=== PATIENT | male | born 1960 | race Two or more races ===

== ENCOUNTER 2019-12-07 16:10 | Inpatient (IN) | payer OTHER ==
[2019-12-07] VITALS (12 sets, daily range): BP systolic 78–119; BP diastolic 27–60
[~2019-12-07] VITALS: Ht 177.8 cm; Wt 81.6 kg
--- NOTE | 2019-12-07 16:26 | Emergency Room Report ---
History of Present Illness General Chief Complaint: Dyspnea/Respdistress Source: EMS Present Illness HPI Disclaimer: Please note that this report is being documented using DRAGON technology. This can lead to erroneous entry secondary to incorrect interpretation by the dictating instrument. 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 From his nursing facility he was found increasingly tachypneic with low blood pressure systolics in the 90s earlier today. Ma[place] warm but no objective temperature readings were taken. No further information provided. PMH: Reviewed PSH: Trach, G-tube Allergies: None listed in chart Social Hx: Unable to obtain from patient Allergies: Coded Allergies: No Known Allergies (Unverified , 12/07/19) COVID-19 Screening Contact w/high risk pt: No Experienced COVID-19 symptoms?: Yes COVID-19 Testing performed MANAGER TRAVEL: No Nursing Documentation-PMH Past Medical History: No History, Except For Hx COPD: Yes - ventilator dependant Hx Diabetes: Yes Hx Gastrointestinal Problems: Yes - dysphasia, GT Hx Seizures: Yes Review of Systems All Other Systems: limited - Unable to obtain from patient due to clinical cond ition Physical Exam Vital Signs Date Time Temp Pulse Resp B/P (MAP) Pulse Ox O2 Delivery O2 Flow Rate FiO2 12/07/19 16:13 120 30 96/62 (73) 93 Mechanical Ventilator General: GCS 3, tachycardic, tachypneic HEENT: NC/AT. EOMI. tracheostomy appears in place without evidence of trauma or bleeding. No subcutaneous air in the neck or face. Cardiovascular: Tachycardic Resp: Tachypnea increased work of breathing. Rhonchorous. No wheezing. Abdomen: Abdomen is soft, nondistended. Nontender Skin: Warm to the touch. Intact. MSK: No spontaneous movement. Bilateral picklines present. Neuro: GCS 3. Procedures Critical Care Time Critical Care Time Total critical care time: Approximately 45 minutes Due to a high probability of clinically significant, life threatening deterioration, the patient required the highest level of preparedness to intervene emergently and I personally spent this critical care time directly and personally managing the patient. This critical care time included obtaining a history, examining the patient, pulse oximetry, ordering and reviewing studies, ordering treatments, evaluating response to treatment and updating management plan as needed, frequent reassessment and discussion with other providers as well as arranging for ultimate disposition. This critical to care time was performed to assess and manage the high probability of life-threatening deterioration that could result in multiorgan failure. This critical care time is separate from the separately billable procedures and treating other patients. Medical Decision Making Diagnostic Impression: Primary Impression: Rapid atrial fibrillation Additional Impressions: Sepsis Pneumonia ER Course 59-year-old male history of intracranial bleed with persistent vegetative state who is now trach and vent dependent presents for evaluation of hypotension and tachypnea. Concern for sepsis secondary to a pulmonary source, occult bacteremia, cardiac event, COVID-19 among others. Patient arrived hypotensive and started 30 cc/kg bolus and levophed. EKG shows rapid atrial fibrillation with rate in the 20s. Because of his low blood pressure held off on beta blocking medications at this time. Started on broad-spectrum antibiotics. Chest x-ray concerning for left lower lobe pneumonia. Initial lactate elevated. Repeat after fluids. Patient will be admitted to the ICU. Dr. Buck is the admitting physician per patient's health plan Sepsis reevaluation: I, Dr. Abran Veloz, reevaluated the patient Capillary refill: Less than 2 seconds MAP: 64 Heart rate: 120 Respiratory rate: 27 Initial Lactate: 3.3 Repeat Lactate: 3.3 Pressors: Levophed drip No signs of fluid overload Laboratory Tests Test 12/07/19 16:15 12/07/19 16:30 12/07/19 16:52 12/07/19 17:15 White Blood Count 7.7 K/UL (4.8-10.8) Red Blood Count 2.94 M/UL (4.70-6.10) L Hemoglobin 7.9 G/DL (14.2-18.0) L Hematocrit 24.4 % (42.0-52.0) L Mean Corpuscular Volume 83 FL (80-99) Mean Corpuscular Hemoglobin 26.9 PG (27.0-31.0) L Mean Corpuscular Hemoglobin Concent 32.4 G/DL (32.0-36.0) Red Cell Distribution Width 16.9 % (11.6-14.8) H Platelet Count 272 K/UL (150-450) Mean Platelet Volume 7.5 FL (6.5-10.1) Neutrophils (%) (Auto) % (45.0-75.0) Lymphocytes (%) (Auto) % (20.0-45.0) Monocytes (%) (Auto) % (1.0-10.0) Eosinophils (%) (Auto) % (0.0-3.0) Basophils (%) (Auto) % (0.0-2.0) Differential Total Cells Counted 100 Neutrophils % (Manual) 79 % (45-75) H Lymphocytes % (Manual) 4 % (20-45) L Monocytes % (Manual) 3 % (1-10) Eosinophils % (Manual) 1 % (0-3) Basophils % (Manual) 0 % (0-2) Band Neutrophils 13 % (0-8) H Nucleated Red Blood Cells 1 /100 WBC Platelet Estimate Adequate Platelet Morphology Normal Anisocytosis 1+ Prothrombin Time 12.0 SEC (9.30-11.50) H Prothrombin Time INR 1.1 (0.9-1.1) Activated Partial Thromboplast Time 30 SEC (23-33) D-Dimer 21.51 mg/L FEU (0.00-0.49) H Sodium Level 136 MMOL/L (136-145) Potassium Level 2.7 MMOL/L (3.5-5.1) *L Chloride Level 96 MMOL/L (98-107) L Carbon Dioxide Level 29 MMOL/L (21-32) Anion Gap 10 mmol/L (5-15) Blood Urea Nitrogen 12 mg/dL (7-18) Creatinine 0.7 MG/DL (0.55-1.30) Estimated Glomerular Filtration Rate > 60 mL/min (>60) Glucose Level 99 MG/DL (74-106) Lactic Acid Level 3.30 mmol/L (0.4-2.0) H 3.30 mmol/L (0.66-2.22) H Calcium Level 8.1 MG/DL (8.5-10.1) L Phosphorus Level 3.0 MG/DL (2.5-4.9) Magnesium Level 1.2 MG/DL (1.8-2.4) L Ferritin 352 NG/ML (8-388) Total Bilirubin 0.7 MG/DL (0.2-1.0) Aspartate Amino Transferase (AST) 45 U/L (15-37) H Alanine Aminotransferase (ALT) 28 U/L (12-78) Alkaline Phosphatase 188 U/L (46-116) H Lactate Dehydrogenase 182 U/L (81-234) Total Creatine Kinase 56 U/L (26-308) Creatine Kinase MB 0.8 NG/ML (0.0-3.6) Creatine Kinase MB Relative Index 1.4 Troponin I 0.000 ng/mL (0.000-0.056) C-Reactive Protein, Quantitative 45.3 mg/dL (0.00-0.90) H Pro-B-Type Natriuretic Peptide 242 pg/mL (0-125) H Total Protein 5.9 G/DL (6.4-8.2) L Albumin 1.6 G/DL (3.4-5.0) L Globulin 4.3 g/dL Albumin/Globulin Ratio 0.4 (1.0-2.7) L Lipase 1131 U/L (73-393) H Urine Color Yellow Urine Appearance Cloudy Urine pH 6 (4.5-8.0) Urine Specific Barnum 1.005 (1.005-1.035) Urine Protein 3+ (NEGATIVE) H Urine Glucose (UA) Negative (NEGATIVE) Urine Ketones Negative (NEGATIVE) Urine Blood 4+ (NEGATIVE) H Urine Nitrite Positive (NEGATIVE) H Urine Bilirubin Negative (NEGATIVE) Urine Urobilinogen 1 MG/DL (0.0-1.0) H Urine Leukocyte Esterase 1+ (NEGATIVE) H Urine RBC 30-40 /HPF (0 - 0) H Urine WBC 10-15 /HPF (0 - 0) H Urine Squamous Epithelial Cells Occasional /LPF Urine Bacteria Many /HPF (NONE) H Arterial Blood pH 7.507 (7.350-7.450) Arterial Blood Partial Pressure CO2 35.2 mmHg (35.0-45.0) Arterial Blood Partial Pressure O2 126.8 mmHg (75.0-100.0) H Arterial Blood HCO3 27.3 mmol/L (22.0-26.0) H Arterial Blood Oxygen Saturation 98.2 % (95-100) Arterial Blood Base Excess 4.2 (-2-2) H Andrea Test Positive Microbiology Date/Time Source Procedure Growth Status 12/07/19 16:15 Nasopharynx SARS-CoV-2 RdRp Gene Assay - Final Complete EKG Diagnostic Results EKG Time: 16:12 Rate: tachycardiac Other Impression Atrial fibrillation with rapid ventricular rate in the 120s Rhythm Strip Diag. Results Rhythm Strip Time: 16:12 EP Interpretation: yes Rate: 120s Rhythm: other - Rapid atrial fibrillation Chest X-Ray Diagnostic Results Chest X-Ray Diagnostic Results : Chest X-Ray Ordered: Yes Indication: Shortness of Breath EP Interpretation: Yes Interpretation: other - Tracheostomy in place, left lower lobe consolidation Impression: Other - Left lower lobe pneumonia Electronically Signed by: Electronically signed by Dr. Abran Veloz Last Vital Signs Date Time Temp Pulse Resp B/P (MAP) Pulse Ox O2 Delivery O2 Flow Rate FiO2 12/07/19 16:13 120 30 96/62 (73) 93 Mechanical Ventilator Disposition: ADMITTED INPATIENT Condition: Serious Abran Veloz MD Dec 07, 2019 16:26
[2019-12-07] MEDS ORDERED: Piperacillin/Tazobactam 3.375 GM in NS 110 ML IV ONE (16:30)
[2019-12-07] MEDS ORDERED: FAMOTIDINE20 MG GT (16:31)
[2019-12-07] MEDS ORDERED: ZOFRAN4 M3 GT (16:31)
[2019-12-07] MEDS ORDERED: FUROSEMIDE20 M1 GT (16:31)
[2019-12-07] MEDS ORDERED: ZINC SULFATE220 M1 GT (16:31)
[2019-12-07] MEDS ORDERED: DULCOLAX10 MG RC (16:31)
[2019-12-07] MEDS ORDERED: CARVEDILOL25 MG ORAL (16:31)
[2019-12-07] MEDS ORDERED: KEPPRA500 MG ORAL (16:31)
[2019-12-07] MEDS ORDERED: ASCORBIC ACID500 MG GT (16:31)
[2019-12-07] MEDS ORDERED: AMLODIPINE BESYL5 MG GT (16:31)
[2019-12-07] MEDS ORDERED: ARTIFICIAL TEAR15 ML BOTH EYES (16:31)
[2019-12-07] MEDS ORDERED: ACETAMINOP160 MG/55 GT (16:31)
[2019-12-07] MEDS ORDERED: HYDRALAZINE HCL10 MG GT (16:31)
[2019-12-07] MEDS ORDERED: SODIUM CHLORIDE1 GM GT (16:31)
[2019-12-07] MEDS ORDERED: MILK OF MA400 MG/51 GT (16:31)
[2019-12-07] MEDS ORDERED: ATIVAN1 MG GT (16:31)
[2019-12-07 16:44] LABS: HEMATOCRIT 24.4 % (42.0-52.0); HEMOGLOBIN 7.9 G/DL (14.2-18.0); MEAN CORPUSCULAR VOLUME 83 FL (80-99); PLATELET COUNT 272 K/UL (150-450); RED BLOOD COUNT 2.94 M/UL (4.70-6.10); RED CELL DISTRIBUTION WIDTH 16.9 % (11.6-14.8); WHITE BLOOD COUNT 7.7 K/UL (4.8-10.8)
[2019-12-07 17:08] LABS: INR 1.1 (0.9-1.1)
[2019-12-07 17:16] LABS: ALANINE AMINOTRANSFERASE 28 U/L (12-78); ALBUMIN 1.6 G/DL (3.4-5.0); ALBUMIN/GLOBULIN RATIO 0.4 (1.0-2.7); ALKALINE PHOSPHATASE 188 U/L (46-116); ANION GAP 10 mmol/L (5-15); ASPARTATE AMINO TRANSFERASE 45 U/L (15-37); BILIRUBIN,TOTAL 0.7 MG/DL (0.2-1.0); BLOOD UREA NITROGEN 12 mg/dL (7-18); CALCIUM 8.1 MG/DL (8.5-10.1); CARBON DIOXIDE 29 MMOL/L (21-32); CHLORIDE 96 MMOL/L (98-107); CKMB 0.8 NG/ML (0.0-3.6); CREATINE KINASE 56 U/L (26-308); CREATININE 0.7 MG/DL (0.55-1.30); FERRITIN 352 NG/ML (8-388); LACTATE DEHYDROGENASE 182 U/L (81-234); POTASSIUM 2.7 MMOL/L (3.5-5.1); SODIUM 136 MMOL/L (136-145)
[2019-12-07 17:50] LABS: BILIRUBIN, URINE NEGATIVE (NEGATIVE); GLUCOSE, URINE (UA) NEGATIVE (NEGATIVE); KETONES,URINE NEGATIVE (NEGATIVE); LEUKOCYTE ESTERASE ,URINE 1+ (NEGATIVE); NITRITE,URINE POSITIVE (NEGATIVE); PH,URINE 6 (4.5-8.0); PROTEIN,URINE 3+ (NEGATIVE); UROBILINOGEN,URINE 1 MG/DL (0.0-1.0)
[2019-12-07 18:00] LABS: COLOR,URINE YELLOW
[2019-12-07 18:01] LABS: APPEARANCE,URINE CLOUDY
[2019-12-07] MEDS ORDERED: Vancomycin 1.5gm/NS Premix IVPB ONE (21:00)
[2019-12-07] MEDS: Carvedilol 25mg Tab GT SCH (21:00)
[2019-12-07] MEDS: Norepinephrine Bitartrate 8 MG in D5W 500ml 492 ML IV SCH (21:37)
[2019-12-07] MEDS: Piperacillin/Tazobactam 3.375 GM in NS 110 ML IVPB SCH (21:38)
[2019-12-07] MEDS: levETIRAcetam 500mg/5ml Liquid GT SCH (21:38)
[2019-12-07] MEDS: Heparin 5000 units/ml inj SUBQ SCH (21:39)
[2019-12-07] MEDS: Zinc Sulfate 220mg GT SCH (21:39)
[2019-12-07] MEDS: Acetaminophen 650mg/20.3ml GT PRN (21:39)
[2019-12-08] VITALS (71 sets, daily range): BP systolic 84–151; BP diastolic 19–97
[2019-12-08] MEDS: Norepinephrine Bitartrate 8 MG in D5W 500ml 492 ML IV SCH ×4 (02:14→19:29)
[2019-12-08] MEDS ORDERED: Vancomycin 1gm/D5W 275ml IVPB SCH ×2 (04:00)
[2019-12-08] MEDS: Acetaminophen 650mg/20.3ml GT PRN ×2 (04:31→17:13)
[2019-12-08] MEDS: Piperacillin/Tazobactam 3.375 GM in NS 110 ML IVPB SCH (06:43)
[2019-12-08] MEDS ORDERED: Heparin1,000 units/500ml Premix(Conc:2 units/ml) IV PRN (08:00)
[2019-12-08] MEDS ORDERED: Lidocaine 1% Plain 30 ml INJ PRN (08:03)
[2019-12-08] MEDS: Heparin 5000 units/ml inj SUBQ SCH ×2 (09:00→21:00)
--- NOTE | 2019-12-08 09:14 | History and Physical Report ---
DATE OF ADMISSION: 12/07/2019 CHIEF COMPLAINT: Septic shock. HISTORY OF PRESENT ILLNESS: The patient is an unfortunate 59-year-old male. He apparently suffered an intracranial bleed several weeks ago. He underwent a craniotomy and EVD, and later a REGISTERED PRIVATE DUTY NURSE shunt. His hospital course was complicated by seizures and chronic respiratory failure. He underwent a placement of a trach and a surgical G-tube. He was transferred to a retirement facility where he developed fevers and shortness of breath, was transferred to the emergency room. On evaluation there, he was tachypneic, febrile, and hypotensive. He received IV fluids, but eventually required placement on pressors for blood pressure support. The patient has been being pancultured and started on broad spectrum IV antibiotics, now admitted for further evaluation and care. PAST MEDICAL HISTORY: As above. PAST SURGICAL HISTORY: As above. CURRENT MEDICATIONS: Reconciled and reviewed. ALLERGIES: None. FAMILY HISTORY: None. SOCIAL HISTORY: There is no known history of tobacco or drugs. The patient has a history of alcohol use. REVIEW OF SYSTEMS: Unobtainable as the patient is nonverbal. PHYSICAL EXAMINATION: VITAL SIGNS: Temperature 100.3, pulse 107, respirations 22, blood pressure 114/24. GENERAL: The patient is a thin, chronically ill-appearing male, in no apparent distress. The pupils are equal, round, and reactive to light. Oropharynx is clear. NECK: Supple. Trach site was clean and midline. HEART: Regular rate and rhythm. LUNGS: Clear. ABDOMEN: Soft, nontender, nondistended. There is surgical scar on the right side of the abdomen with leonardo. EXTREMITIES: Without clubbing or cyanosis. There is 1+ edema noted. LABORATORY DATA: UA showed 10 to 15 wbc's. White count was 8, hemoglobin 8, platelet count 272,000. Sodium 136, potassium 2.7, chloride 96, bicarb of 29, BUN of 12, creatinine 0.7. C-reactive protein was 45. Lipase was 1100. Chest x-ray showed a possible left lower lobe infiltrate. ASSESSMENT: This is an unfortunate 59-year-old male with a history of intracranial bleed, status post craniotomy, REGISTERED PRIVATE DUTY NURSE shunt. He has a history of seizures and chronic respiratory failure. PLAN: 1. We will discontinue the patient's old PICC line. 2. Broad spectrum IV antibiotics. 3. Continue pressors. 4. Aggressive fluid resuscitation. 5. Continue vent support. 6. ID and Pulmonary consultations will be obtained. 7. Plan of care has been discussed with the patient's sisters. They currently want him a Full Code. They are aware that his status is currently critical and guarded. Efren Buck M.D. DR: PAPA JOB#: [id number] CC:
[2019-12-08] MEDS: Ascorbic Acid 500mg tab GT SCH ×2 (09:42→17:13)
[2019-12-08] MEDS: Zinc Sulfate 220mg GT SCH (09:43)
[2019-12-08] MEDS: Carvedilol 25mg Tab GT SCH ×2 (09:43→21:00)
[2019-12-08] MEDS: levETIRAcetam 500mg/5ml Liquid GT SCH ×2 (09:43→21:03)
[2019-12-08 10:12] LABS: HEMATOCRIT 21.5 % (42.0-52.0); HEMOGLOBIN 7.3 G/DL (14.2-18.0); MEAN CORPUSCULAR VOLUME 80 FL (80-99); PLATELET COUNT 246 K/UL (150-450); RED CELL DISTRIBUTION WIDTH 16.2 % (11.6-14.8); WHITE BLOOD COUNT 17.8 K/UL (4.8-10.8)
[2019-12-08 10:30] LABS: ALANINE AMINOTRANSFERASE 26 U/L (12-78); ALBUMIN 1.5 G/DL (3.4-5.0); ALBUMIN/GLOBULIN RATIO 0.3 (1.0-2.7); ALKALINE PHOSPHATASE 144 U/L (46-116); ANION GAP 8 mmol/L (5-15); ASPARTATE AMINO TRANSFERASE 45 U/L (15-37); BILIRUBIN,TOTAL 0.8 MG/DL (0.2-1.0); BLOOD UREA NITROGEN 12 mg/dL (7-18); CALCIUM 7.6 MG/DL (8.5-10.1); CARBON DIOXIDE 26 MMOL/L (21-32); CHLORIDE 97 MMOL/L (98-107); CREATININE 0.6 MG/DL (0.55-1.30); POTASSIUM 3.3 MMOL/L (3.5-5.1); SODIUM 131 MMOL/L (136-145)
--- NOTE | 2019-12-08 10:35 | Diagnostic Imaging Report ---
Procedure: XRAY Chest 1v Reason for study: Reason For Exam: SOB Comparison films: None. FINDINGS: There is a tracheostomy in place. Right-sided INOCULATOR shunt also noted. Vascularity is normal. There are patchy bilateral infiltrates. Mild cardiomegaly and bilateral small effusions noted. The bony thorax appear unremarkable. IMPRESSION: Bilateral patchy infiltrates with bilateral small effusions.
--- NOTE | 2019-12-08 13:00 | Consultation ---
DATE OF CONSULTATION: 12/08/2019 INFECTIOUS DISEASE CONSULTATION CONSULTING PHYSICIAN: Jeannine Corral MD. REFERRING PHYSICIAN: Efren Buck MD. REASON FOR CONSULTATION: Sepsis. HISTORY OF PRESENTING ILLNESS: This is a 59-year-old gentleman with history of intracranial bleed, status post craniotomy with external ventricular drainage, which was changed to a MANAGER IN HOME shunt, as well as respiratory failure, status post tracheostomy and G-tube placement, who comes in with fevers. He was found to be hypotensive and septic and an Infectious Diseases consultation has been obtained for antibiotics. PAST MEDICAL HISTORY: 1. History of intracranial bleed. 2. Status post craniotomy and MANAGER IN HOME shunt placement. 3. Seizures. 4. Respiratory failure, status post tracheostomy. 5. Status post G-tube placement. SOCIAL HISTORY: No history of smoking. He has a history of alcohol use. No history of drug use. FAMILY HISTORY: Unknown. REVIEW OF SYSTEMS: Unable to obtain currently. MEDICATIONS: As an inpatient, he is on chlorhexidine gluconate, ascorbic acid, amlodipine, lidocaine, heparin, vancomycin, norepinephrine, Zosyn, subcutaneous heparin, zinc sulfate, Keppra, Coreg, Tylenol, famotidine, and Dulcolax. ALLERGIES: No known drug allergies. PHYSICAL EXAMINATION: VITAL SIGNS: Temperature 98.9, T-max of 101.7, pulse 118, respiratory rate 36, blood pressure 114/56. O2 saturation of 100%. HEENT: Pupils are equally reactive to light and accommodation. Mouth appears clean without thrush. NECK: Supple. No adenopathy. No JVD. Tracheostomy site is clean CARDIOVASCULAR: Regular rate and rhythm. No murmurs. LUNGS: Clear to auscultation bilaterally. No crackles. No wheezes. ABDOMEN: Soft, nontender. G-tube site appears clean. EXTREMITIES: No cyanosis, no clubbing, no edema. Left arm catheter noted. LABORATORY AND DIAGNOSTIC DATA: White count 17.8, hemoglobin 7.3, hematocrit 21.5, MCV 80, platelet count of 246,000. Sodium 131, potassium 3.3, chloride 97, bicarb 26, BUN 12, creatinine 0.6. Glucose 143. Calcium 7.6. Total bilirubin 0.8, AST 45, ALT 26, alkaline phosphatase 144. Total protein 5.8, albumin 1.5. Lipase of 1131. UA showing 10 to 15 white cells. Urine culture showing gram-negative rods. Blood cultures growing gram-negative rods. COVID-19 test is negative. ASSESSMENT: This is a 59-year-old gentleman with history of intracranial bleed, status post external ventricular shunt and subsequently MANAGER IN HOME shunt placement with seizures, who comes in with hypotension and fevers and is found to have, 1. Gram-negative sepsis, could be secondary to urinary tract infection or a catheter infection. 2. Gram-negative urinary tract infection. 3. Seizures. 4. Respiratory failure, status post tracheostomy. 5. Increasing leukocytosis. 6. Septic shock. PLAN: 1. Discontinue vancomycin and Zosyn. We will start the patient on meropenem. 2. Left arm catheter removal has been planned. 3. We will follow up cultures and adjust antibiotics accordingly. I would like to thank Dr. Buck for this consultation. Jeannine Corral M.D. DR: RADHA JOB#: [id number] CC:
[2019-12-08] MEDS: Meropenem 500 MG in NS 55 ML IVPB SCH ×2 (14:37→21:04)
--- NOTE | 2019-12-08 16:37 | Diagnostic Imaging Report ---
Indication: Abnormal liver function tests, anemia Technique: Hamilton-scale and duplex images of the upper abdomen were obtained Comparison: none Findings: Gallbladder demonstrates sludge and gallstones. Gallbladder wall is thickened and edematous, measuring up to 6 mm thick. For gallbladder is not distended, however. Some comet tail artifact is seen in the gallbladder wall as well. Sonographic Loera sign could not be reported, patient uncommunicative. Common bile duct measures 2 mm in diameter. No intrahepatic biliary ductal dilatation. Liver demonstrates normal echogenicity, no focal abnormality. It is somewhat enlarged. Portal vein and hepatic veins are patent. The pancreas is unremarkable. However, adjacent to the pancreatic body, there is a 2.6 cm somewhat hypoechoic mass. Spleen is unremarkable. Left kidney measures 11.9 cm in length. Right kidney measures 12.4 cm length. Both kidneys demonstrate normal echogenicity. There is no hydronephrosis. No focal abnormality . Abdominal aorta is partially obscured by bowel gas, visualized portions are non-aneurysmal . There is a small right pleural effusion Impression: Hepatomegaly Gallbladder sludge and stones. Gallbladder wall thickening and edema, raises possibility of acute cholecystitis. This could also be edema due to hemodynamic causes or adjacent hepatic inflammation, however. Consider hepatobiliary nuclear scan for further evaluation Comet tail artifact within the gallbladder wall, consistent with adenomyomatosis 2.6 cm mass adjacent to the pancreatic body. Could represent lymphadenopathy. Consider further evaluation with CT scan Small right pleural effusion
--- NOTE | 2019-12-08 19:02 | Brief Operative Note ---
Immediate Post Operative Note Operative Note Pre-op Diagnosis: needs filler leaf cutter long IV access Procedure: PICC Post-op Diagnosis: same as pre-op Surgeon: Ney Cavanaugh Anesthesia: local Specimen: none Complications: none Fluids: none Implant(s) used?: No Victor Manuel Cavanaugh MD Dec 08, 2019 19:02
--- NOTE | 2019-12-08 19:09 | Diagnostic Imaging Report ---
Indications: Needs long-term IV access Technique: Procedure performed at bedside. Procedural timeout performed. Ultrasound confirms patent compressible right basilic vein. Total sterile technique, including sterile probe cover and sterile gel, sterile gloves, hand hygiene, hat, mask,, sterile gown, large sterile drape, and preparation with 2% chlorhexidine utilized. Local anesthesia with 1% lidocaine. Under real-time ultrasound guidance, puncture basilic vein using 21-gauge needle, passage 0.018 guidewire, exchange for 4 Peruvian peel-away sheath. 4 [place] Bard dual-lumen power PICC cut to 45 cm. It was inserted through the peel-away sheath. Peel-away sheath and guidewire removed. Catheter fixed to the skin. Both catheter ports aspirated and flushed. Patient tolerated procedure well, without immediate complication. Followup chest x-ray obtained, documents catheter tip position at the cavoatrial junction Impression: Successful bedside placement of right arm PICC under sonographic guidance, as described above.
[2019-12-08] MEDS ORDERED: Dyna-Hex 2% Top Sol 2oz TOPIC SCH (20:00)
[2019-12-08] MEDS: Dyna-Hex 2% Top Sol 2oz TOPIC SCH (20:15)
[2019-12-08] MEDS ORDERED: BETADINE3780 ML TP (22:22)
[2019-12-08] MEDS ORDERED: LEVETIRACE500 MG/51 GT (22:22)
[2019-12-08] MEDS ORDERED: BACITRACIN ZIN1 EACH TOPIC (22:22)
[2019-12-08] MEDS ORDERED: ARGINAID POWDE1 EACH GT (22:22)
[2019-12-08] MEDS ORDERED: SKIN PROTECTAN113 GM TP (22:22)
--- NOTE | 2019-12-08 23:40 | Cardiology Progress Note ---
Subjective DATE OF SERVICE: Dec 07, 1929 Patient remains in ICU On pressor support for hypotension. Low hemoglobin, K+, and Mg++ noted today. Objective Last 24 Hour Vital Signs Date Time Temp Pulse Resp B/P (MAP) Pulse Ox O2 Delivery O2 Flow Rate FiO2 12/08/19 23:08 106 27 40 12/08/19 22:45 100 23 118/32 (60) 100 12/08/19 22:30 99 24 112/35 (60) 100 12/08/19 22:15 99 20 114/29 (57) 100 12/08/19 22:00 113/32 12/08/19 22:00 96 21 113/33 (59) 100 12/08/19 21:45 98.7 96 19 106/37 (60) 100 12/08/19 21:30 98.8 95 21 110/42 (64) 100 12/08/19 21:15 95 21 106/37 (60) 100 12/08/19 21:00 92 22 102/41 (61) 100 12/08/19 21:00 102/41 12/08/19 20:45 92 21 103/34 (57) 100 12/08/19 20:30 93 24 102/40 (60) 100 12/08/19 20:15 91 21 98/30 (52) 100 12/08/19 20:00 98.8 96 22 98/42 (60) 100 12/08/19 20:00 Mechanical Ventilator 12/08/19 20:00 98/42 12/08/19 20:00 40 12/08/19 20:00 95 12/08/19 19:30 97 24 96/46 (63) 100 12/08/19 19:29 90/41 12/08/19 19:15 93 20 86/36 (53) 100 12/08/19 19:03 99 25 40 12/08/19 19:00 105/41 12/08/19 19:00 96 20 105/41 (62) 100 12/08/19 18:48 99.5 12/08/19 18:45 111 29 119/55 (76) 100 12/08/19 18:30 105 27 105/41 (62) 100 12/08/19 18:15 106 24 106/43 (64) 100 12/08/19 18:00 98/57 12/08/19 18:00 107 24 98/57 (71) 100 12/08/19 17:45 109 23 93/42 (59) 100 12/08/19 17:30 116 27 103/38 (59) 100 12/08/19 17:15 110 21 99/31 (53) 100 12/08/19 17:00 102/31 12/08/19 17:00 110 23 102/31 (54) 100 12/08/19 16:45 107 26 99/27 (51) 100 12/08/19 16:30 109 24 97/32 (53) 100 12/08/19 16:15 102.1 113 23 110/35 (60) 100 12/08/19 16:00 107 12/08/19 16:00 107 25 104/34 (57) 100 12/08/19 16:00 104/34 12/08/19 16:00 Mechanical Ventilator 12/08/19 15:57 40 12/08/19 15:45 106 23 104/28 (53) 100 12/08/19 15:30 106 25 112/31 (58) 100 12/08/19 15:15 108 19 104/32 (56) 100 12/08/19 15:10 105 24 40 12/08/19 15:00 104 21 97/21 (46) 100 12/08/19 15:00 97/21 12/08/19 14:45 104 24 94/25 (48) 100 12/08/19 14:30 105 24 96/19 (44) 100 12/08/19 14:15 108 25 100/24 (49) 100 12/08/19 14:00 110 23 109/27 (54) 100 12/08/19 14:00 109/27 12/08/19 13:45 112 23 116/34 (61) 100 12/08/19 13:30 113 28 118/28 (58) 100 12/08/19 13:15 115 27 117/24 (55) 100 12/08/19 13:00 113/37 12/08/19 13:00 118 27 113/37 (62) 100 12/08/19 12:45 120 37 127/21 (56) 100 12/08/19 12:38 106/25 12/08/19 12:30 120 32 106/25 (52) 100 12/08/19 12:15 117 31 126/34 (64) 100 12/08/19 12:00 119 12/08/19 12:00 99.2 117 35 137/47 (77) 100 12/08/19 12:00 60 12/08/19 12:00 Mechanical Ventilator 12/08/19 12:00 137/47 12/08/19 11:45 120 35 116/39 (64) 100 12/08/19 11:30 114 29 134/42 (72) 12/08/19 11:15 110 29 123/34 (63) 100 12/08/19 11:05 117 32 60 12/08/19 11:00 130/35 12/08/19 11:00 109 24 130/35 (66) 100 12/08/19 10:45 113 28 124/53 (76) 100 12/08/19 10:30 112 36 134/39 (70) 100 12/08/19 10:15 126 38 151/42 (78) 100 12/08/19 10:00 114/56 12/08/19 10:00 118 36 114/56 (75) 100 12/08/19 09:45 108 36 142/40 (74) 100 12/08/19 09:43 101 130/34 12/08/19 09:30 100 30 130/34 (66) 100 12/08/19 09:15 99 23 124/97 (106) 100 12/08/19 09:00 122/40 12/08/19 09:00 92 23 122/40 (67) 100 12/08/19 08:45 95 24 127/36 (66) 100 12/08/19 08:30 130/42 12/08/19 08:30 87 21 130/42 (71) 100 12/08/19 08:00 60 12/08/19 08:00 98.9 88 21 114/30 (58) 100 12/08/19 08:00 Mechanical Ventilator 12/08/19 08:00 114/30 12/08/19 08:00 87 12/08/19 07:30 88 21 120/26 (57) 100 12/08/19 07:10 94 21 60 12/08/19 07:00 114/24 12/08/19 07:00 90 22 114/24 (54) 100 9/25/20 06:44 111/36 12/08/19 06:00 107 48 131/52 (78) 100 12/08/19 06:00 131/52 12/08/19 05:01 100.3 12/08/19 05:00 100 24 111/30 (57) 100 12/08/19 05:00 112/35 12/08/19 04:00 115/31 12/08/19 04:00 80 12/08/19 04:00 100.5 102 34 115/31 (59) 100 12/08/19 04:00 Mechanical Ventilator 12/08/19 03:31 100 12/08/19 03:22 105 20 80 12/08/19 03:00 106/45 12/08/19 03:00 97 20 106/45 (65) 100 12/08/19 02:14 100/34 12/08/19 02:00 97 20 100/34 (56) 100 12/08/19 01:00 101 20 101/25 (50) 100 12/08/19 00:00 Mechanical Ventilator 12/08/19 00:00 103/31 12/08/19 00:00 100.3 112 25 84/42 (56) 100 ROS: unchanged from my note of 12/07/19. HEENT: Thin Trach secretions RHYTHM: Afib LUNGS: bilateral rhonchi CARDIAC: irregularly irregular ABDOMEN: non tender, soft, distended, G-Tube intact EXTREMITIES: trace edema, other - Neuro: comatose state Laboratory Tests Test 12/08/19 05:00 12/08/19 10:00 Lactic Acid Level 1.80 mmol/L (0.4-2.0) White Blood Count 17.8 K/UL (4.8-10.8) #H Red Blood Count 2.70 M/UL (4.70-6.10) L Hemoglobin 7.3 G/DL (14.2-18.0) L Hematocrit 21.5 % (42.0-52.0) L Mean Corpuscular Volume 80 FL (80-99) Mean Corpuscular Hemoglobin 26.9 PG (27.0-31.0) L Mean Corpuscular Hemoglobin Concent 33.7 G/DL (32.0-36.0) Red Cell Distribution Width 16.2 % (11.6-14.8) H Platelet Count 246 K/UL (150-450) Mean Platelet Volume 7.1 FL (6.5-10.1) Neutrophils (%) (Auto) % (45.0-75.0) Lymphocytes (%) (Auto) % (20.0-45.0) Monocytes (%) (Auto) % (1.0-10.0) Eosinophils (%) (Auto) % (0.0-3.0) Basophils (%) (Auto) % (0.0-2.0) Differential Total Cells Counted 100 Neutrophils % (Manual) 82 % (45-75) H Lymphocytes % (Manual) 14 % (20-45) L Monocytes % (Manual) 3 % (1-10) Eosinophils % (Manual) 0 % (0-3) Basophils % (Manual) 0 % (0-2) Band Neutrophils 1 % (0-8) Platelet Estimate Adequate Platelet Morphology Normal Hypochromasia 3+ Anisocytosis 1+ Sodium Level 131 MMOL/L (136-145) L Potassium Level 3.3 MMOL/L (3.5-5.1) L Chloride Level 97 MMOL/L (98-107) L Carbon Dioxide Level 26 MMOL/L (21-32) Anion Gap 8 mmol/L (5-15) Blood Urea Nitrogen 12 mg/dL (7-18) Creatinine 0.6 MG/DL (0.55-1.30) Estimat Glomerular Filtration Rate > 60 mL/min (>60) Glucose Level 143 MG/DL (74-106) H Calcium Level 7.6 MG/DL (8.5-10.1) L Total Bilirubin 0.8 MG/DL (0.2-1.0) Aspartate Amino Transf (AST/SGOT) 45 U/L (15-37) H Alanine Aminotransferase (ALT/SGPT) 26 U/L (12-78) Alkaline Phosphatase 144 U/L (46-116) H Total Protein 5.8 G/DL (6.4-8.2) L Albumin 1.5 G/DL (3.4-5.0) L Globulin 4.3 g/dL Albumin/Globulin Ratio 0.3 (1.0-2.7) L Microbiology Date/Time Source Procedure Growth Status 12/08/19 06:00 Rectum Received 12/07/19 16:30 Urine,Clean Catch Urine Culture - Preliminary Gram Negative Ray Resulted 12/07/19 16:30 Blood Blood Culture - Preliminary Resulted 12/07/19 16:15 Nasopharynx SARS-CoV-2 RdRp Gene Assay - Final Complete 12/07/19 16:15 Blood Blood Culture - Preliminary Resulted Assessment/Plan Assessment/Plan Sepsis with shock Respiratory failure Chronic vegetative state Anemia Hypokalemia Hypomagnesemia Lactic acidosis PAFib with RVR CRITICAL & GUARDED Abx Resp support IVF hydration Taper off pressors Hold carvedilol and amlodipine until off pressors PRBC transfusion IV Mg++ and K+ Flaco Marques MD Dec 08, 2019 23:40
[2019-12-09] VITALS (50 sets, daily range): BP systolic 105–136; BP diastolic 24–57
--- NOTE | 2019-12-09 00:04 | Consultation ---
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 Patient presents with hypotension and multiple lab abnormalities with clinical signs of sepsis. PMH: Chronic encephalopathy, comatose state, respiratory failure with trach, PAFib, NIDDM, Sz disorder, hypertension/HHD, hx of CHF, protein/calorie malnutrition. Allergies: Coded Allergies: No Known Allergies (Unverified , 12/07/19) Medication History Scheduled Amlodipine Besylate* (Amlodipine Besylate*), 5 MG GT DAILY, (Reported) Arginine/Ascorbate Sod/Karma AC (Arginaid Powder), 1 EACH GT BID, (Reported) Ascorbic Acid* (Ascorbic Acid*), 500 MG GT TWICE A DAY, (Reported) Bacitracin Zinc* (Bacitracin Zinc*), 1 APPLIC TOPIC DAILY, (Reported) Carvedilol* (Carvedilol*), 25 MG ORAL EVERY 12 HOURS, (Reported) Dextran 70/Hypromellose (Artificial Tears Eye Drops*), 1 DROP BOTH EYES Q12HR, (Reported) Famotidine* (Pepcid 20mg tablet*), 20 MG GT TWICE A DAY, (Reported) Furosemide* (Lasix*), 20 MG GT DAILY, (Reported) Hydralazine Hcl* (Hydralazine Hcl*), 10 MG GT Q4HR, (Reported) Levetiracetam (Levetiracetam), 1,500 MG GT Q12HR, (Reported) Lorazepam* (Ativan*), 1 MG GT Q4HR, (Reported) Povidone-Iodine (Betadine), ML TP DAILY, (Reported) Sodium Chloride* (Sodium Chloride*), 1 GM GT TID, (Reported) Zinc Oxide (Skin Protectant), GM TP DAILY, (Reported) Zinc Sulfate (Zinc Sulfate*), 220 MG GT DAILY, (Reported) Scheduled PRN Acetaminophen* (Acetaminophen*), 650 MG GT Q4H PRN for Mild Pain/Temp > 100.5, (Reported) Bisacodyl (Dulcolax), 10 MG RC Q24H PRN for Constipation, (Reported) Magnesium Hydroxide* (Milk Of Magnesia*), 30 ML GT DAILY PRN for Constipation, (Reported) Ondansetron* (Zofran*), 4 MG GT Q6H PRN for Nausea & Vomiting, (Reported) Discontinued Medications Levetiracetam (Keppra), 1,000 MG ORAL EVERY 12 HOURS, (Reported) Discontinued Reason: Prescription changed Patient History Limited by: medical condition History Provided By: Medical Record Healthcare decision maker Resuscitation status Advanced Directive on File Physical Exam General Appearance: other - comatose Lines, tubes and drains: central line HEENT: other - temporal wasting Neck: trach Respiratory/Chest: rhonchi - bilaterally, on vent Breasts: no masses Cardiovascular/Chest: tachycardia, arrhythmia, irregularly irregular Abdomen: soft, decreased bowel sounds, feeding tube Extremities: no calf tenderness, trace edema Skin Exam: mottled Neurologic: unresponsiveness Musculoskeletal: atrophy Last 24 Hour Vital Signs Date Time Temp Pulse Resp B/P (MAP) Pulse Ox O2 Delivery O2 Flow Rate FiO2 12/08/19 23:08 106 27 40 12/08/19 22:45 100 23 118/32 (60) 100 12/08/19 22:30 99 24 112/35 (60) 100 12/08/19 22:15 99 20 114/29 (57) 100 12/08/19 22:00 113/32 12/08/19 22:00 96 21 113/33 (59) 100 12/08/19 21:45 98.7 96 19 106/37 (60) 100 12/08/19 21:30 98.8 95 21 110/42 (64) 100 12/08/19 21:15 95 21 106/37 (60) 100 12/08/19 21:00 92 22 102/41 (61) 100 12/08/19 21:00 102/41 12/08/19 20:45 92 21 103/34 (57) 100 12/08/19 20:30 93 24 102/40 (60) 100 12/08/19 20:15 91 21 98/30 (52) 100 12/08/19 20:00 98.8 96 22 98/42 (60) 100 12/08/19 20:00 Mechanical Ventilator 12/08/19 20:00 98/42 12/08/19 20:00 40 12/08/19 20:00 95 12/08/19 19:30 97 24 96/46 (63) 100 12/08/19 19:29 90/41 12/08/19 19:15 93 20 86/36 (53) 100 12/08/19 19:03 99 25 40 12/08/19 19:00 105/41 12/08/19 19:00 96 20 105/41 (62) 100 12/08/19 18:48 99.5 12/08/19 18:45 111 29 119/55 (76) 100 12/08/19 18:30 105 27 105/41 (62) 100 12/08/19 18:15 106 24 106/43 (64) 100 12/08/19 18:00 98/57 12/08/19 18:00 107 24 98/57 (71) 100 12/08/19 17:45 109 23 93/42 (59) 100 12/08/19 17:30 116 27 103/38 (59) 100 12/08/19 17:15 110 21 99/31 (53) 100 12/08/19 17:00 102/31 12/08/19 17:00 110 23 102/31 (54) 100 12/08/19 16:45 107 26 99/27 (51) 100 12/08/19 16:30 109 24 97/32 (53) 100 12/08/19 16:15 102.1 113 23 110/35 (60) 100 12/08/19 16:00 107 12/08/19 16:00 107 25 104/34 (57) 100 12/08/19 16:00 104/34 12/08/19 16:00 Mechanical Ventilator 12/08/19 15:57 40 12/08/19 15:45 106 23 104/28 (53) 100 12/08/19 15:30 106 25 112/31 (58) 100 12/08/19 15:15 108 19 104/32 (56) 100 12/08/19 15:10 105 24 40 12/08/19 15:00 104 21 97/21 (46) 100 12/08/19 15:00 97/21 12/08/19 14:45 104 24 94/25 (48) 100 12/08/19 14:30 105 24 96/19 (44) 100 12/08/19 14:15 108 25 100/24 (49) 100 12/08/19 14:00 110 23 109/27 (54) 100 12/08/19 14:00 109/27 12/08/19 13:45 112 23 116/34 (61) 100 12/08/19 13:30 113 28 118/28 (58) 100 12/08/19 13:15 115 27 117/24 (55) 100 12/08/19 13:00 113/37 12/08/19 13:00 118 27 113/37 (62) 100 12/08/19 12:45 120 37 127/21 (56) 100 12/08/19 12:38 106/25 12/08/19 12:30 120 32 106/25 (52) 100 12/08/19 12:15 117 31 126/34 (64) 100 12/08/19 12:00 119 12/08/19 12:00 99.2 117 35 137/47 (77) 100 12/08/19 12:00 60 12/08/19 12:00 Mechanical Ventilator 12/08/19 12:00 137/47 12/08/19 11:45 120 35 116/39 (64) 100 12/08/19 11:30 114 29 134/42 (72) 12/08/19 11:15 110 29 123/34 (63) 100 12/08/19 11:05 117 32 60 12/08/19 11:00 130/35 12/08/19 11:00 109 24 130/35 (66) 100 12/08/19 10:45 113 28 124/53 (76) 100 12/08/19 10:30 112 36 134/39 (70) 100 12/08/19 10:15 126 38 151/42 (78) 100 12/08/19 10:00 114/56 12/08/19 10:00 118 36 114/56 (75) 100 12/08/19 09:45 108 36 142/40 (74) 100 12/08/19 09:43 101 130/34 12/08/19 09:30 100 30 130/34 (66) 100 12/08/19 09:15 99 23 124/97 (106) 100 12/08/19 09:00 122/40 12/08/19 09:00 92 23 122/40 (67) 100 12/08/19 08:45 95 24 127/36 (66) 100 12/08/19 08:30 130/42 12/08/19 08:30 87 21 130/42 (71) 100 12/08/19 08:00 60 12/08/19 08:00 98.9 88 21 114/30 (58) 100 12/08/19 08:00 Mechanical Ventilator 12/08/19 08:00 114/30 12/08/19 08:00 87 12/08/19 07:30 88 21 120/26 (57) 100 12/08/19 07:10 94 21 60 12/08/19 07:00 114/24 12/08/19 07:00 90 22 114/24 (54) 100 12/08/19 06:44 111/36 12/08/19 06:00 107 48 131/52 (78) 100 12/08/19 06:00 131/52 12/08/19 05:01 100.3 12/08/19 05:00 100 24 111/30 (57) 100 12/08/19 05:00 112/35 12/08/19 04:00 115/31 12/08/19 04:00 80 12/08/19 04:00 100.5 102 34 115/31 (59) 100 12/08/19 04:00 Mechanical Ventilator 12/08/19 03:31 100 12/08/19 03:22 105 20 80 12/08/19 03:00 106/45 12/08/19 03:00 97 20 106/45 (65) 100 12/08/19 02:14 100/34 12/08/19 02:00 97 20 100/34 (56) 100 12/08/19 01:00 101 20 101/25 (50) 100 12/08/19 00:00 Mechanical Ventilator 12/08/19 00:00 103/31 12/08/19 00:00 100.3 112 25 84/42 (56) 100 Intake and Output 12/07/19 12/08/19 19:00 07:00 Intake Total 3072.5 ml 1887.6110 ml Output Total 475 ml Balance 3072.5 ml 1412.6110 ml IV Total 3072.5 ml 1857.6110 ml Other 30 ml Output Urine Total 475 ml Laboratory Tests Test 12/08/19 05:00 12/08/19 10:00 Lactic Acid Level 1.80 mmol/L (0.4-2.0) White Blood Count 17.8 K/UL (4.8-10.8) #H Red Blood Count 2.70 M/UL (4.70-6.10) L Hemoglobin 7.3 G/DL (14.2-18.0) L Hematocrit 21.5 % (42.0-52.0) L Mean Corpuscular Volume 80 FL (80-99) Mean Corpuscular Hemoglobin 26.9 PG (27.0-31.0) L Mean Corpuscular Hemoglobin Concent 33.7 G/DL (32.0-36.0) Red Cell Distribution Width 16.2 % (11.6-14.8) H Platelet Count 246 K/UL (150-450) Mean Platelet Volume 7.1 FL (6.5-10.1) Neutrophils (%) (Auto) % (45.0-75.0) Lymphocytes (%) (Auto) % (20.0-45.0) Monocytes (%) (Auto) % (1.0-10.0) Eosinophils (%) (Auto) % (0.0-3.0) Basophils (%) (Auto) % (0.0-2.0) Differential Total Cells Counted 100 Neutrophils % (Manual) 82 % (45-75) H Lymphocytes % (Manual) 14 % (20-45) L Monocytes % (Manual) 3 % (1-10) Eosinophils % (Manual) 0 % (0-3) Basophils % (Manual) 0 % (0-2) Band Neutrophils 1 % (0-8) Platelet Estimate Adequate Platelet Morphology Normal Hypochromasia 3+ Anisocytosis 1+ Sodium Level 131 MMOL/L (136-145) L Potassium Level 3.3 MMOL/L (3.5-5.1) L Chloride Level 97 MMOL/L (98-107) L Carbon Dioxide Level 26 MMOL/L (21-32) Anion Gap 8 mmol/L (5-15) Blood Urea Nitrogen 12 mg/dL (7-18) Creatinine 0.6 MG/DL (0.55-1.30) Estimat Glomerular Filtration Rate > 60 mL/min (>60) Glucose Level 143 MG/DL (74-106) H Calcium Level 7.6 MG/DL (8.5-10.1) L Total Bilirubin 0.8 MG/DL (0.2-1.0) Aspartate Amino Transf (AST/SGOT) 45 U/L (15-37) H Alanine Aminotransferase (ALT/SGPT) 26 U/L (12-78) Alkaline Phosphatase 144 U/L (46-116) H Total Protein 5.8 G/DL (6.4-8.2) L Albumin 1.5 G/DL (3.4-5.0) L Globulin 4.3 g/dL Albumin/Globulin Ratio 0.3 (1.0-2.7) L Microbiology Date/Time Source Procedure Growth Status 12/08/19 06:00 Rectum Received Height (Feet): 5 Height (Inches): 10.00 Weight (Pounds): 200 Medications Current Medications Medications (Trade) Dose Ordered Sig/Howard Route PRN Reason Start Time Stop Time Status Last Admin Dose Admin Acetaminophen (Tylenol) 650 mg Q6H PRN GT Mild Pain (Pain Scale 1-3) 12/07/19 18:45 01/06/20 18:44 12/07/19 21:39 Acetaminophen (Tylenol) 650 mg Q6H PRN GT Temp >100.5 12/07/19 19:15 01/06/20 19:14 12/08/19 17:13 Ascorbic Acid (Vitamin C) 500 mg TWICE A DAY GT 12/08/19 09:00 01/07/20 08:59 12/08/19 17:13 Bisacodyl (Dulcolax) 10 mg DAILYPRN PRN RECTAL Constipation 12/07/19 18:45 03/06/20 18:44 Chlorhexidine Gluconate (Ivanna-Hex 2%) 1 applic DAILY@1999 TOPIC 12/08/19 20:00 03/07/20 19:59 12/08/19 20:15 Famotidine (Pepcid) 20 mg TWICE A DAY GT 12/07/19 18:45 03/06/20 18:44 12/08/19 17:13 Heparin Sodium (Porcine) (Heparin 5000 units/ml) 5,000 units EVERY 12 HOURS SUBQ 12/07/19 21:00 01/21/20 20:59 12/07/19 21:39 Heparin Sodium/ Sodium Chloride (Heparin 1000 units/500ml Premix) 1,000 unit ONCE PRN IV PICC 12/08/19 08:00 12/08/19 23:59 Levetiracetam (Keppra) 1,000 mg EVERY 12 HOURS GT 12/07/19 21:00 01/06/20 20:59 12/08/19 21:03 Lidocaine HCl (Xylocaine 1% 30ml) 30 ml ONCE PRN INJ PICC 12/08/19 08:03 12/08/19 23:59 Meropenem 500 mg/ Sodium Chloride 55 ml @ 110 mls/hr EVERY 8 HOURS IVPB 12/08/19 14:00 12/13/19 13:59 12/08/19 21:04 Norepinephrine Bitartrate 8 mg/ Dextrose 500 ml @ 0 mls/hr Q24H IV 12/07/19 22:30 12/10/19 22:29 12/08/19 19:29 Potassium Chloride 20 meq/ Sodium Chloride 1,010 ml @ 100 mls/hr Q10H6M IV 12/09/19 23:30 01/08/20 23:29 Zinc Sulfate (Zinc Sulfate) 220 mg DAILY GT 12/07/19 21:00 03/06/20 20:59 12/08/19 09:43 Assessment/Plan Assessment/Plan: Critical & Guarded Sepsis with shock HC assoc PNA Lactic acidosis Anemia Atrial fibrillation with RVR Respiratory failure with trach IVF Pressors Antimicrobials Digitalize if rate control needed DVT and stress ulcer prophyl Serial lactic acid levels and hemoglobin levels F/U lytes and replace as needed Vent support Flaco Marques MD Dec 09, 2019 00:04
[2019-12-09] MEDS: NS w/KCl 20mEq 1000ml 1,000 ML IV SCH ×3 (00:46→19:43)
[2019-12-09] MEDS: Norepinephrine Bitartrate 8 MG in D5W 500ml 492 ML IV SCH ×2 (02:51→17:29)
[2019-12-09 05:12] LABS: HEMATOCRIT 21.6 % (42.0-52.0); HEMOGLOBIN 7.4 G/DL (14.2-18.0); MEAN CORPUSCULAR VOLUME 78 FL (80-99); PLATELET COUNT 198 K/UL (150-450); RED BLOOD COUNT 2.76 M/UL (4.70-6.10); RED CELL DISTRIBUTION WIDTH 16.2 % (11.6-14.8)
[2019-12-09] MEDS: Meropenem 500 MG in NS 55 ML IVPB SCH (05:29)
[2019-12-09 05:44] LABS: ALANINE AMINOTRANSFERASE 27 U/L (12-78); ALBUMIN 1.4 G/DL (3.4-5.0); ALBUMIN/GLOBULIN RATIO 0.4 (1.0-2.7); ALKALINE PHOSPHATASE 110 U/L (46-116); ANION GAP 5 mmol/L (5-15); ASPARTATE AMINO TRANSFERASE 43 U/L (15-37); BLOOD UREA NITROGEN 11 mg/dL (7-18); CALCIUM 7.7 MG/DL (8.5-10.1); CARBON DIOXIDE 28 MMOL/L (21-32); CHLORIDE 97 MMOL/L (98-107); CREATININE 0.5 MG/DL (0.55-1.30); SODIUM 130 MMOL/L (136-145)
[2019-12-09] MEDS: Heparin 5000 units/ml inj SUBQ SCH ×2 (09:00→20:33)
[2019-12-09] MEDS: Ascorbic Acid 500mg tab GT SCH ×2 (09:03→17:33)
[2019-12-09] MEDS: levETIRAcetam 500mg/5ml Liquid GT SCH ×2 (09:03→20:33)
[2019-12-09] MEDS: Zinc Sulfate 220mg GT SCH (09:04)
--- NOTE | 2019-12-09 10:03 | General Progress Note ---
Subjective ROS Limited/Unobtainable: No Constitutional: Reports: malaise, weakness HEENT: Reports: no symptoms Cardiovascular: Reports: no symptoms Respiratory: Reports: cough, shortness of breath, sputum Gastrointestinal/Abdominal: Reports: difficulty swallowing Genitourinary: Reports: no symptoms Neurologic/Psychiatric: Reports: pre-existing deficit Endocrine: Reports: no symptoms Hematologic/Lymphatic: Reports: anemia Allergies: Coded Allergies: No Known Allergies (Unverified , 12/07/19) All Systems: reviewed and negative except above Subjective no events. decreased pressors requirements. no fevers. decrease h/h noted. low k and sodium Objective Last 24 Hour Vital Signs Date Time Temp Pulse Resp B/P (MAP) Pulse Ox O2 Delivery O2 Flow Rate FiO2 12/09/19 08:00 101 12/09/19 07:00 100 24 116/35 (62) 100 12/09/19 07:00 116/35 12/09/19 07:00 100 24 116/35 (62) 100 12/09/19 06:45 102 24 115/30 (58) 100 12/09/19 06:30 104 25 118/37 (64) 100 12/09/19 06:15 102 23 120/37 (64) 100 12/09/19 06:00 102 23 112/36 (61) 100 12/09/19 06:00 112/36 12/09/19 05:45 102 24 114/34 (60) 100 12/09/19 05:30 103 30 115/31 (59) 100 12/09/19 05:15 103 25 112/37 (62) 100 12/09/19 05:00 102 22 115/38 (63) 100 12/09/19 05:00 102 22 115/38 (63) 100 12/09/19 05:00 115/38 12/09/19 04:45 108 27 130/38 (68) 100 12/09/19 04:30 102 22 113/28 (56) 100 12/09/19 04:15 102 23 112/28 (56) 100 12/09/19 04:00 Mechanical Ventilator 12/09/19 04:00 40 12/09/19 04:00 112/25 12/09/19 04:00 106 12/09/19 04:00 99.3 105 27 112/25 (54) 100 12/09/19 03:45 104 25 110/33 (58) 100 12/09/19 03:30 105 26 106/34 (58) 100 12/09/19 03:15 105 28 106/24 (51) 100 12/09/19 03:08 104 26 40 12/09/19 03:00 105 24 112/26 (54) 100 12/09/19 03:00 112/26 12/09/19 02:51 110/45 12/09/19 02:45 113 25 110/45 (66) 100 12/09/19 02:30 112 23 105/41 (62) 100 12/09/19 02:15 111 24 114/36 (62) 100 12/09/19 02:00 112 22 113/36 (61) 100 12/09/19 02:00 113/36 12/09/19 01:45 111 26 118/29 (58) 100 12/09/19 01:30 119/46 12/09/19 01:30 113 26 119/46 (70) 100 12/09/19 01:15 116 28 122/31 (61) 100 12/09/19 01:00 116 27 117/39 (65) 100 12/09/19 00:45 116 29 121/35 (63) 100 12/09/19 00:30 130/35 12/09/19 00:30 114 27 130/35 (66) 100 12/09/19 00:15 113 33 133/28 (63) 100 12/09/19 00:00 Mechanical Ventilator 12/09/19 00:00 99.0 113 29 136/36 (69) 100 12/09/19 00:00 40 12/09/19 00:00 136/36 12/09/19 00:00 113 12/08/19 23:45 109 26 145/33 (70) 100 12/08/19 23:30 107 28 125/31 (62) 100 12/08/19 23:15 106 23 121/28 (59) 100 12/08/19 23:08 106 27 40 12/08/19 23:00 117/34 12/08/19 23:00 101 21 117/34 (61) 100 12/08/19 22:45 100 23 118/32 (60) 100 12/08/19 22:30 99 24 112/35 (60) 100 9/25/20 22:15 99 20 114/29 (57) 100 20 22:00 113/32 20 22:00 96 21 113/33 (59) 100 12/08/19 21:45 98.7 96 19 106/37 (60) 100 20 21:30 98.8 95 21 110/42 (64) 100 20 21:15 95 21 106/37 (60) 100 20 21:00 92 22 102/41 (61) 100 20 21:00 102/41 12/08/19 20:45 92 21 103/34 (57) 100 12/08/19 20:30 93 24 102/40 (60) 100 12/08/19 20:15 91 21 98/30 (52) 100 12/08/19 20:00 98.8 96 22 98/42 (60) 100 12/08/19 20:00 Mechanical Ventilator 12/08/19 20:00 98/42 12/08/19 20:00 40 12/08/19 20:00 95 12/08/19 19:30 97 24 96/46 (63) 100 12/08/19 19:29 90/41 12/08/19 19:15 93 20 86/36 (53) 100 12/08/19 19:03 99 25 40 12/08/19 19:00 105/41 12/08/19 19:00 96 20 105/41 (62) 100 12/08/19 18:48 99.5 12/08/19 18:45 111 29 119/55 (76) 100 12/08/19 18:30 105 27 105/41 (62) 100 20 18:15 106 24 106/43 (64) 100 20 18:00 98/57 20 18:00 107 24 98/57 (71) 100 20 17:45 109 23 93/42 (59) 100 20 17:30 116 27 103/38 (59) 100 20 17:15 110 21 99/31 (53) 100 12/07/20 17:00 102/31 20 17:00 110 23 102/31 (54) 100 20 16:45 107 26 99/27 (51) 100 12/08/19 16:30 109 24 97/32 (53) 100 12/08/19 16:15 102.1 113 23 110/35 (60) 100 12/08/19 16:00 107 12/08/19 16:00 107 25 104/34 (57) 100 12/08/19 16:00 104/34 12/08/19 16:00 Mechanical Ventilator 12/08/19 15:57 40 12/08/19 15:45 106 23 104/28 (53) 100 12/08/19 15:30 106 25 112/31 (58) 100 12/08/19 15:15 108 19 104/32 (56) 100 12/08/19 15:10 105 24 40 12/08/19 15:00 104 21 97/21 (46) 100 12/08/19 15:00 97/21 12/08/19 14:45 104 24 94/25 (48) 100 12/08/19 14:30 105 24 96/19 (44) 100 12/08/19 14:15 108 25 100/24 (49) 100 12/08/19 14:00 110 23 109/27 (54) 100 12/08/19 14:00 109/27 12/08/19 13:45 112 23 116/34 (61) 100 12/08/19 13:30 113 28 118/28 (58) 100 12/08/19 13:15 115 27 117/24 (55) 100 12/08/19 13:00 113/37 12/08/19 13:00 118 27 113/37 (62) 100 12/08/19 12:45 120 37 127/21 (56) 100 12/08/19 12:38 106/25 12/08/19 12:30 120 32 106/25 (52) 100 12/08/19 12:15 117 31 126/34 (64) 100 12/08/19 12:00 119 12/08/19 12:00 99.2 117 35 137/47 (77) 100 12/08/19 12:00 60 12/08/19 12:00 Mechanical Ventilator 12/08/19 12:00 137/47 12/08/19 11:45 120 35 116/39 (64) 100 12/08/19 11:30 114 29 134/42 (72) 9/25/20 11:15 110 29 123/34 (63) 100 12/08/19 11:05 117 32 60 12/08/19 11:00 130/35 12/08/19 11:00 109 24 130/35 (66) 100 12/08/19 10:45 113 28 124/53 (76) 100 12/08/19 10:30 112 36 134/39 (70) 100 12/08/19 10:15 126 38 151/42 (78) 100 Intake and Output 12/08/19 12/09/19 19:00 07:00 Intake Total 2575.50 ml 2284.625 ml Output Total 795 ml 800 ml Balance 1780.50 ml 1484.625 ml Intake Free Water 60 ml IV Total 2455.50 ml 2034.625 ml Blood Product 250 ml Other 60 ml Output Urine Total 795 ml 700 ml Stool Total 100 ml # Bowel Movements 1 2 Laboratory Tests 12/09/19 04:00: White Blood Count 15.0H, Red Blood Count 2.76L, Hemoglobin 7.4L, Hematocrit 21.6L, Mean Corpuscular Volume 78L, Mean Corpuscular Hemoglobin 26.8L, Mean Corpuscular Hemoglobin Concent 34.2, Red Cell Distribution Width 16.2H, Platelet Count 198, Mean Platelet Volume 7.6, Neutrophils (%) (Auto) , Lymphocytes (%) (Auto) , Monocytes (%) (Auto) , Eosinophils (%) (Auto) , Basophils (%) (Auto) , Differential Total Cells Counted 100, Neutrophils % (Manual) 85H, Lymphocytes % (Manual) 9L, Monocytes % (Manual) 6, Eosinophils % (Manual) 0, Basophils % (Manual) 0, Band Neutrophils 0, Platelet Estimate Adequate, Platelet Morphology Normal, Hypochromasia 3+, Anisocytosis 1+, Microcytosis 1+, Spherocytes 2+, Sodium Level 130L, Potassium Level 3.0L, Chloride Level 97L, Carbon Dioxide Level 28, Anion Gap 5, Blood Urea Nitrogen 11, Creatinine 0.5L, Estimat Glomer ular Filtration Rate > 60, Glucose Level 108H, Calcium Level 7.7L, Total Bilirubin 1.0, Aspartate Amino Transf (AST/SGOT) 43H, Alanine Aminotransferase (ALT/SGPT) 27, Alkaline Phosphatase 110, Total Protein 4.9L, Albumin 1.4L, Globulin 3.5, Albumin/Globulin Ratio 0.4L, Thyroid Stimulating Hormone (TSH) 1.765 Height (Feet): 5 Height (Inches): 10.00 Weight (Pounds): 200 General Appearance: WD/WN, lethargic, confused EENT: normal ENT inspection Neck: non-tender, normal alignment Cardiovascular: normal peripheral pulses, normal rate, regular rhythm Respiratory/Chest: chest wall non-tender, lungs clear, normal breath sounds Abdomen: normal bowel sounds, non tender, soft, no organomegaly Edema: no edema noted Arm (L), no edema noted Arm (R) Neurologic: disoriented, unresponsive Assessment/Plan Problem List: (1) Pneumonia ICD Codes: J18.9 - Pneumonia, unspecified organism SNOMED: 568839378 (2) Rapid atrial fibrillation ICD Codes: I48.91 - Unspecified atrial fibrillation SNOMED: 171621897 (3) Sepsis ICD Codes: A41.9 - Sepsis, unspecified organism SNOMED: 22517164 Status: stable Assessment/Plan: cont pressors wean as able iv abx follow up cultures transfuse as needed monitor for bleeding replace lytes PPI rx check stool ob check iron panel cards and ID appreciated critical and guarded Efren Buck MD Dec 09, 2019 10:03
[2019-12-09] MEDS: Meropenem 1gm in NS 55ml IVPB SCH ×2 (14:19→21:31)
[2019-12-09] MEDS: Dyna-Hex 2% Top Sol 2oz TOPIC SCH (19:38)
[2019-12-09 19:55] LABS: HEMATOCRIT 23.4 % (42.0-52.0); HEMOGLOBIN 7.7 G/DL (14.2-18.0); MEAN CORPUSCULAR VOLUME 82 FL (80-99); PLATELET COUNT 182 K/UL (150-450); RED BLOOD COUNT 2.86 M/UL (4.70-6.10); RED CELL DISTRIBUTION WIDTH 18.2 % (11.6-14.8); WHITE BLOOD COUNT 14.5 K/UL (4.8-10.8)
[2019-12-09 20:34] LABS: % IRON SATURATION 10 % (15-50); IRON 10 ug/dL (50-175); TOTAL IRON BINDING CAPACITY 100 ug/dL (250-450)
[2019-12-09 20:51] LABS: ALANINE AMINOTRANSFERASE 23 U/L (12-78); ALBUMIN 1.4 G/DL (3.4-5.0); ALBUMIN/GLOBULIN RATIO 0.3 (1.0-2.7); ALKALINE PHOSPHATASE 112 U/L (46-116); ANION GAP 4 mmol/L (5-15); ASPARTATE AMINO TRANSFERASE 39 U/L (15-37); BILIRUBIN,TOTAL 0.7 MG/DL (0.2-1.0); BLOOD UREA NITROGEN 7 mg/dL (7-18); CARBON DIOXIDE 25 MMOL/L (21-32); CHLORIDE 97 MMOL/L (98-107); CREATININE 0.5 MG/DL (0.55-1.30); POTASSIUM 3.1 MMOL/L (3.5-5.1); SODIUM 126 MMOL/L (136-145)
--- NOTE | 2019-12-09 21:19 | Cardiology Progress Note ---
Subjective DATE OF SERVICE: Dec 09, 2019 Patient remains in ICU On tapering pressor support for hypotension. Low hemoglobin, K+, and Mg++ noted. Objective Last 24 Hour Vital Signs Date Time Temp Pulse Resp B/P (MAP) Pulse Ox O2 Delivery O2 Flow Rate FiO2 12/09/19 19:58 91 28 40 12/09/19 19:00 96 23 125/33 (63) 100 12/09/19 19:00 125/33 12/09/19 18:00 127/49 12/09/19 18:00 88 22 128/37 (67) 100 12/09/19 17:29 127/57 12/09/19 17:00 87 23 127/57 (80) 100 12/09/19 16:00 90 12/09/19 16:00 Mechanical Ventilator 12/09/19 16:00 98.7 90 25 125/34 (64) 100 12/09/19 16:00 40 12/09/19 16:00 125/37 12/09/19 15:30 89 20 121/38 (65) 100 12/09/19 15:08 85 21 40 12/09/19 15:00 90 24 123/36 (65) 100 12/09/19 15:00 126/37 12/09/19 14:30 91 21 126/38 (67) 100 12/09/19 14:00 91 23 124/32 (62) 100 12/09/19 14:00 122/40 12/09/19 13:00 93 23 120/36 (64) 100 12/09/19 13:00 120/33 12/09/19 12:00 40 12/09/19 12:00 Mechanical Ventilator 12/09/19 12:00 112/40 12/09/19 12:00 93 12/09/19 12:00 98.5 96 27 118/32 (60) 100 12/09/19 11:14 97 24 40 12/09/19 11:00 94 22 114/33 (60) 100 12/09/19 11:00 114/30 12/09/19 10:30 99 21 120/31 (60) 100 12/09/19 10:00 99 23 115/30 (58) 100 12/09/19 10:00 115/30 12/09/19 09:30 99 22 121/32 (61) 100 12/09/19 09:05 117/35 12/09/19 09:00 101 25 117/35 (62) 100 12/09/19 08:30 104 24 113/34 (60) 100 12/09/19 08:00 101 12/09/19 08:00 Mechanical Ventilator 12/09/19 08:00 121/36 12/09/19 08:00 40 12/09/19 08:00 100.3 103 22 121/36 (64) 100 12/09/19 07:09 100 27 40 12/09/19 07:00 100 24 116/35 (62) 100 12/09/19 07:00 116/35 12/09/19 07:00 100 24 116/35 (62) 100 12/09/19 06:45 102 24 115/30 (58) 100 12/09/19 06:30 104 25 118/37 (64) 100 12/09/19 06:15 102 23 120/37 (64) 100 12/09/19 06:00 102 23 112/36 (61) 100 12/09/19 06:00 112/36 12/09/19 05:45 102 24 114/34 (60) 100 12/09/19 05:30 103 30 115/31 (59) 100 12/09/19 05:15 103 25 112/37 (62) 100 12/09/19 05:00 102 22 115/38 (63) 100 12/09/19 05:00 102 22 115/38 (63) 100 12/09/19 05:00 115/38 12/09/19 04:45 108 27 130/38 (68) 100 12/09/19 04:30 102 22 113/28 (56) 100 12/09/19 04:15 102 23 112/28 (56) 100 12/09/19 04:00 Mechanical Ventilator 12/09/19 04:00 40 12/09/19 04:00 112/25 12/09/19 04:00 106 12/09/19 04:00 99.3 105 27 112/25 (54) 100 12/09/19 03:45 104 25 110/33 (58) 100 12/09/19 03:30 105 26 106/34 (58) 100 12/09/19 03:15 105 28 106/24 (51) 100 12/09/19 03:08 104 26 40 12/09/19 03:00 105 24 112/26 (54) 100 12/09/19 03:00 112/26 12/09/19 02:51 110/45 12/09/19 02:45 113 25 110/45 (66) 100 12/09/19 02:30 112 23 105/41 (62) 100 12/09/19 02:15 111 24 114/36 (62) 100 12/09/19 02:00 112 22 113/36 (61) 100 12/09/19 02:00 113/36 12/09/19 01:45 111 26 118/29 (58) 100 12/09/19 01:30 119/46 12/09/19 01:30 113 26 119/46 (70) 100 12/09/19 01:15 116 28 122/31 (61) 100 12/09/19 01:00 116 27 117/39 (65) 100 12/09/19 00:45 116 29 121/35 (63) 100 12/09/19 00:30 130/35 12/09/19 00:30 114 27 130/35 (66) 100 12/09/19 00:15 113 33 133/28 (63) 100 12/09/19 00:00 Mechanical Ventilator 12/09/19 00:00 99.0 113 29 136/36 (69) 100 12/09/19 00:00 40 12/09/19 00:00 136/36 12/09/19 00:00 113 12/08/19 23:45 109 26 145/33 (70) 100 12/08/19 23:30 107 28 125/31 (62) 100 12/08/19 23:15 106 23 121/28 (59) 100 12/08/19 23:08 106 27 40 12/08/19 23:00 117/34 12/08/19 23:00 101 21 117/34 (61) 100 12/08/19 22:45 100 23 118/32 (60) 100 12/08/19 22:30 99 24 112/35 (60) 100 12/08/19 22:15 99 20 114/29 (57) 100 12/08/19 22:00 113/32 12/08/19 22:00 96 21 113/33 (59) 100 12/08/19 21:45 98.7 96 19 106/37 (60) 100 12/08/19 21:30 98.8 95 21 110/42 (64) 100 ROS: unchanged from my note of 12/07/19. HEENT: Thin Trach secretions RHYTHM: Afib LUNGS: bilateral rhonchi CARDIAC: irregularly irregular ABDOMEN: non tender, soft, distended, G-Tube intact EXTREMITIES: trace edema, other - Neuro: comatose state Laboratory Tests Test 12/09/19 04:00 12/09/19 18:30 White Blood Count 15.0 K/UL (4.8-10.8) H 14.5 K/UL (4.8-10.8) H Red Blood Count 2.76 M/UL (4.70-6.10) L 2.86 M/UL (4.70-6.10) L Hemoglobin 7.4 G/DL (14.2-18.0) L 7.7 G/DL (14.2-18.0) L Hematocrit 21.6 % (42.0-52.0) L 23.4 % (42.0-52.0) L Mean Corpuscular Volume 78 FL (80-99) L 82 FL (80-99) Mean Corpuscular Hemoglobin 26.8 PG (27.0-31.0) L 27.0 PG (27.0-31.0) Mean Corpuscular Hemoglobin Concent 34.2 G/DL (32.0-36.0) 33.0 G/DL (32.0-36.0) Red Cell Distribution Width 16.2 % (11.6-14.8) H 18.2 % (11.6-14.8) H Platelet Count 198 K/UL (150-450) 182 K/UL (150-450) Mean Platelet Volume 7.6 FL (6.5-10.1) 8.4 FL (6.5-10.1) Neutrophils (%) (Auto) % (45.0-75.0) % (45.0-75.0) Lymphocytes (%) (Auto) % (20.0-45.0) % (20.0-45.0) Monocytes (%) (Auto) % (1.0-10.0) % (1.0-10.0) Eosinophils (%) (Auto) % (0.0-3.0) % (0.0-3.0) Basophils (%) (Auto) % (0.0-2.0) % (0.0-2.0) Differential Total Cells Counted 100 100 Neutrophils % (Manual) 85 % (45-75) H 77 % (45-75) H Lymphocytes % (Manual) 9 % (20-45) L 15 % (20-45) L Monocytes % (Manual) 6 % (1-10) 8 % (1-10) Eosinophils % (Manual) 0 % (0-3) 0 % (0-3) Basophils % (Manual) 0 % (0-2) 0 % (0-2) Band Neutrophils 0 % (0-8) 0 % (0-8) Platelet Estimate Adequate Adequate Platelet Morphology Normal Normal Hypochromasia 3+ 1+ Anisocytosis 1+ 2+ Microcytosis 1+ Spherocytes 2+ Sodium Level 130 MMOL/L (136-145) L 126 MMOL/L (136-145) L Potassium Level 3.0 MMOL/L (3.5-5.1) L 3.1 MMOL/L (3.5-5.1) L Chloride Level 97 MMOL/L (98-107) L 97 MMOL/L (98-107) L Carbon Dioxide Level 28 MMOL/L (21-32) 25 MMOL/L (21-32) Anion Gap 5 mmol/L (5-15) 4 mmol/L (5-15) L Blood Urea Nitrogen 11 mg/dL (7-18) 7 mg/dL (7-18) Creatinine 0.5 MG/DL (0.55-1.30) L 0.5 MG/DL (0.55-1.30) L Estimat Glomerular Filtration Rate > 60 mL/min (>60) > 60 mL/min (>60) Glucose Level 108 MG/DL (74-106) H 149 MG/DL (74-106) H Calcium Level 7.7 MG/DL (8.5-10.1) L 8.0 MG/DL (8.5-10.1) L Total Bilirubin 1.0 MG/DL (0.2-1.0) 0.7 MG/DL (0.2-1.0) Aspartate Amino Transf (AST/SGOT) 43 U/L (15-37) H 39 U/L (15-37) H Alanine Aminotransferase (ALT/SGPT) 27 U/L (12-78) 23 U/L (12-78) Alkaline Phosphatase 110 U/L (46-116) 112 U/L (46-116) Total Protein 4.9 G/DL (6.4-8.2) L 5.7 G/DL (6.4-8.2) L Albumin 1.4 G/DL (3.4-5.0) L 1.4 G/DL (3.4-5.0) L Globulin 3.5 g/dL 4.3 g/dL Albumin/Globulin Ratio 0.4 (1.0-2.7) L 0.3 (1.0-2.7) L Thyroid Stimulating Hormone (TSH) 1.765 uiU/mL (0.358-3.740) Stool Occult Blood Pending Iron Level 10 ug/dL (50-175) L Total Iron Binding Capacity 100 ug/dL (250-450) L Percent Iron Saturation 10 % (15-50) L Unsaturated Iron Binding 90 ug/dL (112-346) L Microbiology Date/Time Source Procedure Growth Status 12/08/19 21:45 Stool Clostridium difficile Toxin Assay - Final Complete 12/08/19 06:00 Rectum Received 12/07/19 16:30 Urine,Clean Catch Urine Culture - Final Escherichia Coli - Esbl Complete 12/07/19 16:30 Blood Blood Culture - Preliminary Gram Negative Ray Resulted 12/07/19 16:15 Nasopharynx SARS-CoV-2 RdRp Gene Assay - Final Complete 12/07/19 16:15 Blood Blood Culture - Preliminary Gram Negative Ray Resulted Assessment/Plan Assessment/Plan Sepsis with shock Respiratory failure Chronic vegetative state Anemia Hypokalemia - total body depl Hypomagnesemia - severe Lactic acidosis PAFib with RVR CRITICAL & GUARDED Abx Resp support IVF hydration Taper off pressors Hold carvedilol and amlodipine until off pressors PRBC transfusion Additional IV Mg++ and K+ Flaco Marques MD Dec 09, 2019 21:19
[2019-12-10] VITALS (29 sets, daily range): BP systolic 117–132; BP diastolic 29–51
[2019-12-10] MEDS: NS w/KCl 20mEq 1000ml 1,000 ML IV SCH ×2 (05:30→16:57)
[2019-12-10] MEDS: Meropenem 1gm in NS 55ml IVPB SCH ×3 (05:30→22:05)
[2019-12-10 06:06] LABS: ALANINE AMINOTRANSFERASE 24 U/L (12-78); ALBUMIN 1.4 G/DL (3.4-5.0); ALBUMIN/GLOBULIN RATIO 0.3 (1.0-2.7); ALKALINE PHOSPHATASE 103 U/L (46-116); ANION GAP 7 mmol/L (5-15); ASPARTATE AMINO TRANSFERASE 38 U/L (15-37); BILIRUBIN,TOTAL 0.7 MG/DL (0.2-1.0); BLOOD UREA NITROGEN 5 mg/dL (7-18); CALCIUM 7.9 MG/DL (8.5-10.1); CARBON DIOXIDE 26 MMOL/L (21-32); CHLORIDE 103 MMOL/L (98-107); CREATININE 0.4 MG/DL (0.55-1.30); POTASSIUM 3.1 MMOL/L (3.5-5.1); SODIUM 136 MMOL/L (136-145)
[2019-12-10] MEDS ORDERED: D5W 550ml IV ONE (08:32)
[2019-12-10] MEDS ORDERED: Tubing Blood Filter IV ONE (08:32)
[2019-12-10] MEDS ORDERED: NS 275ml ONE (08:32)
[2019-12-10] MEDS ORDERED: Tubing IV Secondary IV ONE ×2 (08:32→08:40)
[2019-12-10] MEDS ORDERED: NS Irrig 1000ml ONE (08:32)
[2019-12-10] MEDS: Ascorbic Acid 500mg tab GT SCH ×2 (09:59→17:00)
[2019-12-10] MEDS: levETIRAcetam 500mg/5ml Liquid GT SCH ×2 (09:59→20:29)
[2019-12-10] MEDS: Zinc Sulfate 220mg GT SCH (10:00)
[2019-12-10] MEDS: Heparin 5000 units/ml inj SUBQ SCH ×2 (10:01→20:32)
--- NOTE | 2019-12-10 10:38 | Infectious Diseases Prog Note ---
Assessment/Plan Assessment/Plan A; 1. Serratia sepsis, 2. E. coli urinary tract infection. 3. Seizures. 4. Respiratory failure, status post tracheostomy. 5. leukocytosis. 6. Septic shock. 7. Anemia 8. 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 Continue meropenem. 2. Left arm catheter was removed. 3. We will follow up cultures Subjective ROS Limited/Unobtainable: Yes Constitutional: Denies: fever Gastrointestinal/Abdominal: Reports: diarrhea Allergies: Coded Allergies: No Known Allergies (Unverified , 12/07/19) Objective Last 24 Hour Vital Signs Date Time Temp Pulse Resp B/P (MAP) Pulse Ox O2 Delivery O2 Flow Rate FiO2 12/10/19 09:00 118/42 12/10/19 08:00 88 17 128/33 (64) 100 12/10/19 08:00 116/46 12/10/19 08:00 90 12/10/19 07:12 85 23 40 12/10/19 07:00 90 22 122/37 (65) 100 12/10/19 07:00 122/37 12/10/19 06:00 126/33 12/10/19 06:00 85 20 126/33 (64) 100 12/10/19 05:00 88 21 124/36 (65) 100 12/10/19 05:00 124/36 12/10/19 04:00 98.3 86 21 126/38 (67) 100 12/10/19 04:00 86 12/10/19 04:00 126/38 12/10/19 04:00 40 12/10/19 04:00 Mechanical Ventilator 12/10/19 03:30 90 21 40 12/10/19 03:00 87 22 126/36 (66) 100 12/10/19 03:00 126/36 12/10/19 02:00 85 20 127/44 (71) 100 12/10/19 02:00 127/44 12/10/19 01:00 84 20 126/39 (68) 100 12/10/19 01:00 126/39 12/10/19 00:00 88 12/10/19 00:00 98.1 88 22 121/38 (65) 100 12/10/19 00:00 Mechanical Ventilator 12/10/19 00:00 121/38 12/10/19 00:00 40 12/09/19 23:47 90 12/09/19 23:14 82 20 40 12/09/19 23:00 86 20 123/37 (65) 100 12/09/19 23:00 123/37 12/09/19 22:00 125/38 12/09/19 22:00 88 21 125/38 (67) 100 12/09/19 21:00 88 20 123/40 (67) 100 12/09/19 21:00 123/40 12/09/19 20:00 40 12/09/19 20:00 124/30 12/09/19 20:00 Mechanical Ventilator 12/09/19 20:00 98.1 93 26 124/30 (61) 100 12/09/19 19:58 91 28 40 12/09/19 19:35 93 12/09/19 19:00 96 23 125/33 (63) 100 12/09/19 19:00 125/33 12/09/19 18:00 127/49 12/09/19 18:00 88 22 128/37 (67) 100 12/09/19 17:29 127/57 12/09/19 17:00 87 23 127/57 (80) 100 12/09/19 16:00 90 12/09/19 16:00 Mechanical Ventilator 12/09/19 16:00 98.7 90 25 125/34 (64) 100 12/09/19 16:00 40 12/09/19 16:00 125/37 12/09/19 15:30 89 20 121/38 (65) 100 12/09/19 15:08 85 21 40 12/09/19 15:00 90 24 123/36 (65) 100 12/09/19 15:00 126/37 12/09/19 14:30 91 21 126/38 (67) 100 12/09/19 14:00 91 23 124/32 (62) 100 12/09/19 14:00 122/40 12/09/19 13:00 93 23 120/36 (64) 100 12/09/19 13:00 120/33 12/09/19 12:00 40 12/09/19 12:00 Mechanical Ventilator 12/09/19 12:00 112/40 12/09/19 12:00 93 12/09/19 12:00 98.5 96 27 118/32 (60) 100 12/09/19 11:14 97 24 40 12/09/19 11:00 94 22 114/33 (60) 100 12/09/19 11:00 114/30 Height (Feet): 5 Height (Inches): 10.00 Weight (Pounds): 200 HEENT: status post trach Respiratory/Chest: lungs clear, other - on ventilator Cardiovascular: normal rate, other - R arm PICC line Abdomen: soft, non tender, other - GT & rectal tube Extremities: other - generalized edema Neurologic/Psychiatric: alert, responsive Microbiology Date/Time Source Procedure Growth Status 12/08/19 21:45 Stool Clostridium difficile Toxin Assay - Final Complete 12/08/19 06:00 Rectum VRE Culture - Final Enterococcus Faecium - Vre Complete 12/08/19 06:00 Rectum - Final NO CARBAPENEM-RESISTANT ENTEROBACTERI... Complete 12/08/19 06:00 Nasal Nares MRSA Culture - Final NO METHICILLIN RESISTANT STAPH AUREUS... Complete 12/07/19 16:30 Urine,Clean Catch Urine Culture - Final Escherichia Coli - Esbl Complete 12/07/19 16:30 Blood Blood Culture - Final Serratia Marcescens Complete 12/07/19 16:15 Nasopharynx SARS-CoV-2 RdRp Gene Assay - Final Complete 12/07/19 16:15 Blood Blood Culture - Final Serratia Marcescens Complete Laboratory Tests Test 12/09/19 18:30 12/10/19 04:25 White Blood Count 14.5 K/UL (4.8-10.8) H Red Blood Count 2.86 M/UL (4.70-6.10) L Hemoglobin 7.7 G/DL (14.2-18.0) L Hematocrit 23.4 % (42.0-52.0) L Mean Corpuscular Volume 82 FL (80-99) Mean Corpuscular Hemoglobin 27.0 PG (27.0-31.0) Mean Corpuscular Hemoglobin Concent 33.0 G/DL (32.0-36.0) Red Cell Distribution Width 18.2 % (11.6-14.8) H Platelet Count 182 K/UL (150-450) Mean Platelet Volume 8.4 FL (6.5-10.1) Neutrophils (%) (Auto) % (45.0-75.0) Lymphocytes (%) (Auto) % (20.0-45.0) Monocytes (%) (Auto) % (1.0-10.0) Eosinophils (%) (Auto) % (0.0-3.0) Basophils (%) (Auto) % (0.0-2.0) Differential Total Cells Counted 100 Neutrophils % (Manual) 77 % (45-75) H Lymphocytes % (Manual) 15 % (20-45) L Monocytes % (Manual) 8 % (1-10) Eosinophils % (Manual) 0 % (0-3) Basophils % (Manual) 0 % (0-2) Band Neutrophils 0 % (0-8) Platelet Estimate Adequate Platelet Morphology Normal Hypochromasia 1+ Anisocytosis 2+ Stool Occult Blood Pending Sodium Level 126 MMOL/L (136-145) L 136 MMOL/L (136-145) # Potassium Level 3.1 MMOL/L (3.5-5.1) L 3.1 MMOL/L (3.5-5.1) L Chloride Level 97 MMOL/L (98-107) L 103 MMOL/L (98-107) Carbon Dioxide Level 25 MMOL/L (21-32) 26 MMOL/L (21-32) Anion Gap 4 mmol/L (5-15) L 7 mmol/L (5-15) Blood Urea Nitrogen 7 mg/dL (7-18) 5 mg/dL (7-18) L Creatinine 0.5 MG/DL (0.55-1.30) L 0.4 MG/DL (0.55-1.30) L Estimat Glomerular Filtration Rate > 60 mL/min (>60) > 60 mL/min (>60) Glucose Level 149 MG/DL (74-106) H 97 MG/DL (74-106) Calcium Level 8.0 MG/DL (8.5-10.1) L 7.9 MG/DL (8.5-10.1) L Iron Level 10 ug/dL (50-175) L Total Iron Binding Capacity 100 ug/dL (250-450) L Percent Iron Saturation 10 % (15-50) L Unsaturated Iron Binding 90 ug/dL (112-346) L Total Bilirubin 0.7 MG/DL (0.2-1.0) 0.7 MG/DL (0.2-1.0) Aspartate Amino Transf (AST/SGOT) 39 U/L (15-37) H 38 U/L (15-37) H Alanine Aminotransferase (ALT/SGPT) 23 U/L (12-78) 24 U/L (12-78) Alkaline Phosphatase 112 U/L (46-116) 103 U/L (46-116) Total Protein 5.7 G/DL (6.4-8.2) L 5.6 G/DL (6.4-8.2) L Albumin 1.4 G/DL (3.4-5.0) L 1.4 G/DL (3.4-5.0) L Globulin 4.3 g/dL 4.2 g/dL Albumin/Globulin Ratio 0.3 (1.0-2.7) L 0.3 (1.0-2.7) L Magnesium Level 2.6 MG/DL (1.8-2.4) H Thyroid Stimulating Hormone (TSH) 1.568 uiU/mL (0.358-3.740) Current Medications Medications (Trade) Dose Ordered Sig/Howard Route PRN Reason Start Time Stop Time Status Last Admin Dose Admin Acetaminophen (Tylenol) 650 mg Q6H PRN GT Mild Pain (Pain Scale 1-3) 12/07/19 18:45 01/06/20 18:44 12/07/19 21:39 Acetaminophen (Tylenol) 650 mg Q6H PRN GT Temp >100.5 12/07/19 19:15 01/06/20 19:14 12/08/19 17:13 Ascorbic Acid (Vitamin C) 500 mg TWICE A DAY GT 12/08/19 09:00 01/07/20 08:59 12/10/19 09:59 Bisacodyl (Dulcolax) 10 mg DAILYPRN PRN RECTAL Constipation 12/07/19 18:45 03/06/20 18:44 Chlorhexidine Gluconate (Ivanna-Hex 2%) 1 applic DAILY@1999 TOPIC 12/08/19 20:00 03/07/20 19:59 12/09/19 19:38 Famotidine (Pepcid) 20 mg TWICE A DAY GT 12/07/19 18:45 03/06/20 18:44 12/10/19 09:59 Heparin Sodium (Porcine) (Heparin 5000 units/ml) 5,000 units EVERY 12 HOURS SUBQ 12/07/19 21:00 01/21/20 20:59 12/10/19 10:01 Levetiracetam (Keppra) 1,000 mg EVERY 12 HOURS GT 12/07/19 21:00 01/06/20 20:59 12/10/19 09:59 Meropenem 1 gm/ Sodium Chloride 55 ml @ 110 mls/hr Q8HR IVPB 12/09/19 14:00 12/14/19 13:59 12/10/19 05:30 Norepinephrine Bitartrate 8 mg/ Dextrose 500 ml @ 0 mls/hr Q24H IV 12/07/19 22:30 12/10/19 22:29 12/09/19 17:29 Potassium Chloride/Sodium Chloride 1,000 ml @ 100 mls/hr Q10H IV 12/09/19 00:30 01/08/20 00:29 12/10/19 05:30 Zinc Sulfate (Zinc Sulfate) 220 mg DAILY GT 12/07/19 21:00 03/06/20 20:59 12/10/19 10:00 Liban Nice MD Dec 10, 2019 10:38
--- NOTE | 2019-12-10 11:31 | General Progress Note ---
Subjective ROS Limited/Unobtainable: Yes Constitutional: Reports: malaise, weakness HEENT: Reports: no symptoms Cardiovascular: Reports: no symptoms Respiratory: Reports: shortness of breath Gastrointestinal/Abdominal: Reports: difficulty swallowing Genitourinary: Reports: no symptoms Neurologic/Psychiatric: Reports: pre-existing deficit, seizure Endocrine: Reports: no symptoms Hematologic/Lymphatic: Reports: anemia Allergies: Coded Allergies: No Known Allergies (Unverified , 12/07/19) All Systems: reviewed and negative except above Subjective no events. decreased pressor requirements. +blood and urine cultures. on iv abx. no reports or bleeding. awake but nonverbal. Objective Last 24 Hour Vital Signs Date Time Temp Pulse Resp B/P (MAP) Pulse Ox O2 Delivery O2 Flow Rate FiO2 12/10/19 11:12 85 21 40 12/10/19 10:30 87 23 132/33 (66) 100 12/10/19 10:00 84 21 124/40 (68) 100 12/10/19 10:00 132/33 12/10/19 09:30 84 23 119/42 (67) 100 12/10/19 09:00 118/42 12/10/19 09:00 98.8 86 22 126/32 (63) 100 12/10/19 08:00 Mechanical Ventilator 12/10/19 08:00 88 17 128/33 (64) 100 12/10/19 08:00 40 12/10/19 08:00 116/46 12/10/19 08:00 90 12/10/19 07:12 85 23 40 12/10/19 07:00 90 22 122/37 (65) 100 12/10/19 07:00 122/37 12/10/19 06:00 126/33 12/10/19 06:00 85 20 126/33 (64) 100 12/10/19 05:00 88 21 124/36 (65) 100 12/10/19 05:00 124/36 12/10/19 04:00 98.3 86 21 126/38 (67) 100 12/10/19 04:00 86 12/10/19 04:00 126/38 12/10/19 04:00 40 12/10/19 04:00 Mechanical Ventilator 12/10/19 03:30 90 21 40 12/10/19 03:00 87 22 126/36 (66) 100 12/10/19 03:00 126/36 12/10/19 02:00 85 20 127/44 (71) 100 12/10/19 02:00 127/44 12/10/19 01:00 84 20 126/39 (68) 100 12/10/19 01:00 126/39 12/10/19 00:00 88 12/10/19 00:00 98.1 88 22 121/38 (65) 100 12/10/19 00:00 Mechanical Ventilator 12/10/19 00:00 121/38 12/10/19 00:00 40 12/09/19 23:47 90 12/09/19 23:14 82 20 40 12/09/19 23:00 86 20 123/37 (65) 100 12/09/19 23:00 123/37 12/09/19 22:00 125/38 12/09/19 22:00 88 21 125/38 (67) 100 12/09/19 21:00 88 20 123/40 (67) 100 12/09/19 21:00 123/40 12/09/19 20:00 40 12/09/19 20:00 124/30 12/09/19 20:00 Mechanical Ventilator 12/09/19 20:00 98.1 93 26 124/30 (61) 100 12/09/19 19:58 91 28 40 12/09/19 19:35 93 12/09/19 19:00 96 23 125/33 (63) 100 12/09/19 19:00 125/33 12/09/19 18:00 127/49 12/09/19 18:00 88 22 128/37 (67) 100 12/09/19 17:29 127/57 12/09/19 17:00 87 23 127/57 (80) 100 12/09/19 16:00 90 12/09/19 16:00 Mechanical Ventilator 12/09/19 16:00 98.7 90 25 125/34 (64) 100 12/09/19 16:00 40 12/09/19 16:00 125/37 12/09/19 15:30 89 20 121/38 (65) 100 12/09/19 15:08 85 21 40 12/09/19 15:00 90 24 123/36 (65) 100 9/26/20 15:00 126/37 12/09/19 14:30 91 21 126/38 (67) 100 12/09/19 14:00 91 23 124/32 (62) 100 12/09/19 14:00 122/40 12/09/19 13:00 93 23 120/36 (64) 100 12/09/19 13:00 120/33 12/09/19 12:00 40 12/09/19 12:00 Mechanical Ventilator 12/09/19 12:00 112/40 12/09/19 12:00 93 12/09/19 12:00 98.5 96 27 118/32 (60) 100 Intake and Output 12/09/19 12/10/19 19:00 07:00 Intake Total 1667.5 ml 2090.0 ml Output Total 1070 ml 1220 ml Balance 597.5 ml 870.0 ml IV Total 1547.5 ml 1980.0 ml Other 120 ml 110 ml Output Urine Total 770 ml 770 ml Stool Total 300 ml 450 ml Laboratory Tests 12/09/19 18:30: White Blood Count 14.5H, Red Blood Count 2.86L, Hemoglobin 7.7L, Hematocrit 23.4L, Mean Corpuscular Volume 82, Mean Corpuscular Hemoglobin 27.0, Mean Corpuscular Hemoglobin Concent 33.0, Red Cell Distribution Width 18.2H, Platelet Count 182, Mean Platelet Volume 8.4, Neutrophils (%) (Auto) , Lymphocytes (%) (Auto) , Monocytes (%) (Auto) , Eosinophils (%) (Auto) , Basophils (%) (Auto) , Differential Total Cells Counted 100, Neutrophils % (Manual) 77H, Lymphocytes % (Manual) 15L, Monocytes % (Manual) 8, Eosinophils % (Manual) 0, Basophils % (Manual) 0, Band Neutrophils 0, Platelet Estimate Adequate, Platelet Morphology Normal, Hypochromasia 1+, Anisocytosis 2+, Stool Occult Blood [Pending], Sodium Level 126L, Potassium Level 3.1L, Chloride Level 97L, Carbon Dioxide Level 25, Anion Gap 4L, Blood Urea Nitrogen 7, Creatinine 0.5L, Estimat Glomerular Filtration Rate > 60, Glucose Level 149H, Calcium Level 8.0L, Iron Level 10L, Total Iron Binding Capacity 100L, Percent Iron Saturation 10L, Unsaturated Iron Binding 90L, Total Bilirubin 0.7, Aspartate Amino Transf (AST/SGOT) 39H, Alanine Aminotransferase (ALT/SGPT) 23, Alkaline Phosphatase 112, Total Protein 5.7L, Al bumin 1.4L, Globulin 4.3, Albumin/Globulin Ratio 0.3L 12/10/19 04:25: Sodium Level 136#, Potassium Level 3.1L, Chloride Level 103, Carbon Dioxide Level 26, Anion Gap 7, Blood Urea Nitrogen 5L, Creatinine 0.4L, Estimat Glomerular Filtration Rate > 60, Glucose Level 97, Calcium Level 7.9L, Total Bilirubin 0.7, Aspartate Amino Transf (AST/SGOT) 38H, Alanine Aminotransferase (ALT/SGPT) 24, Alkaline Phosphatase 103, Total Protein 5.6L, Albumin 1.4L, Globulin 4.2, Albumin/Globulin Ratio 0.3L, Magnesium Level 2.6H, Thyroid Stimulating Hormone (TSH) 1.568 Height (Feet): 5 Height (Inches): 10.00 Weight (Pounds): 200 Objective General Appearance: WD/WN, lethargic, confused EENT: normal ENT inspection Neck: non-tender, normal alignment Cardiovascular: normal peripheral pulses, normal rate, regular rhythm Respiratory/Chest: chest wall non-tender, lungs clear, normal breath sounds Abdomen: normal bowel sounds, non tender, soft, no organomegaly Edema: no edema noted Arm (L), no edema noted Arm (R) Neurologic: disoriented, unresponsive Assessment/Plan Problem List: (1) Pneumonia ICD Codes: J18.9 - Pneumonia, unspecified organism SNOMED: 321442544 (2) Rapid atrial fibrillation ICD Codes: I48.91 - Unspecified atrial fibrillation SNOMED: 157197175 (3) Sepsis ICD Codes: A41.9 - Sepsis, unspecified organism SNOMED: 55829819 Status: stable Assessment/Plan: cont pressors wean as able iv abx follow up cultures transfuse as needed monitor for bleeding replace lytes PPI rx check stool ob check iron panel replace lytes cards and ID appreciated critical and guarded Efren Buck MD Dec 10, 2019 11:31
[2019-12-10] MEDS: Norepinephrine Bitartrate 8 MG in D5W 500ml 492 ML IV SCH (11:36)
[2019-12-10 13:13] LABS: HEMATOCRIT 22.4 % (42.0-52.0); HEMOGLOBIN 7.5 G/DL (14.2-18.0); MEAN CORPUSCULAR VOLUME 79 FL (80-99); PLATELET COUNT 181 K/UL (150-450); RED BLOOD COUNT 2.82 M/UL (4.70-6.10); RED CELL DISTRIBUTION WIDTH 17.1 % (11.6-14.8)
--- NOTE | 2019-12-10 15:06 | Cardiology Report ---
APPROVED REPORT EKG Measurement Heart [id number] <Conclusion> Sinus tachycardia with PACs Nonspecific ST abnormality Abnormal ECG
--- NOTE | 2019-12-10 17:05 | Cardiology Progress Note ---
Subjective DATE OF SERVICE: Dec 10, 2019 Patient remains in ICU Still on pressor support for hypotension; still with tapering efforts. Low hemoglobin, K+, and Mg++ noted yesterday; repletion on-going. Objective Last 24 Hour Vital Signs Date Time Temp Pulse Resp B/P (MAP) Pulse Ox O2 Delivery O2 Flow Rate FiO2 12/10/19 16:00 85 24 126/35 (65) 100 12/10/19 16:00 40 12/10/19 16:00 Mechanical Ventilator 12/10/19 16:00 84 12/10/19 16:00 127/33 12/10/19 15:08 88 26 40 12/10/19 15:00 86 21 117/38 (64) 100 12/10/19 15:00 117/38 12/10/19 14:30 82 21 129/34 (65) 100 12/10/19 14:00 125/37 12/10/19 14:00 81 26 125/37 (66) 100 12/10/19 13:00 86 26 129/31 (63) 100 12/10/19 13:00 129/31 12/10/19 12:30 84 19 121/42 (68) 100 12/10/19 12:06 84 12/10/19 12:00 40 12/10/19 12:00 Mechanical Ventilator 12/10/19 12:00 130/29 12/10/19 12:00 98.6 86 24 130/29 (62) 100 12/10/19 11:36 132/33 12/10/19 11:30 85 24 130/29 (62) 100 12/10/19 11:12 85 21 40 12/10/19 11:00 86 24 132/39 (70) 100 12/10/19 11:00 124/35 12/10/19 10:30 87 23 132/33 (66) 100 12/10/19 10:00 84 21 124/40 (68) 100 12/10/19 10:00 132/33 12/10/19 09:30 84 23 119/42 (67) 100 12/10/19 09:00 118/42 12/10/19 09:00 98.8 86 22 126/32 (63) 100 12/10/19 08:00 Mechanical Ventilator 12/10/19 08:00 88 17 128/33 (64) 100 12/10/19 08:00 40 12/10/19 08:00 116/46 12/10/19 08:00 90 12/10/19 07:12 85 23 40 12/10/19 07:00 90 22 122/37 (65) 100 12/10/19 07:00 122/37 12/10/19 06:00 126/33 12/10/19 06:00 85 20 126/33 (64) 100 12/10/19 05:00 88 21 124/36 (65) 100 12/10/19 05:00 124/36 12/10/19 04:00 98.3 86 21 126/38 (67) 100 12/10/19 04:00 86 12/10/19 04:00 126/38 12/10/19 04:00 40 12/10/19 04:00 Mechanical Ventilator 12/10/19 03:30 90 21 40 12/10/19 03:00 87 22 126/36 (66) 100 12/10/19 03:00 126/36 12/10/19 02:00 85 20 127/44 (71) 100 12/10/19 02:00 127/44 12/10/19 01:00 84 20 126/39 (68) 100 12/10/19 01:00 126/39 12/10/19 00:00 88 12/10/19 00:00 98.1 88 22 121/38 (65) 100 12/10/19 00:00 Mechanical Ventilator 12/10/19 00:00 121/38 12/10/19 00:00 40 12/09/19 23:47 90 12/09/19 23:14 82 20 40 12/09/19 23:00 86 20 123/37 (65) 100 12/09/19 23:00 123/37 12/09/19 22:00 125/38 12/09/19 22:00 88 21 125/38 (67) 100 12/09/19 21:00 88 20 123/40 (67) 100 12/09/19 21:00 123/40 12/09/19 20:00 40 12/09/19 20:00 124/30 12/09/19 20:00 Mechanical Ventilator 12/09/19 20:00 98.1 93 26 124/30 (61) 100 12/09/19 19:58 91 28 40 12/09/19 19:35 93 12/09/19 19:00 96 23 125/33 (63) 100 12/09/19 19:00 125/33 12/09/19 18:00 127/49 12/09/19 18:00 88 22 128/37 (67) 100 12/09/19 17:29 127/57 ROS: unchanged from my note of 12/07/19. HEENT: Thin Trach secretions RHYTHM: Afib LUNGS: bilateral rhonchi CARDIAC: irregularly irregular ABDOMEN: non tender, soft, distended, G-Tube intact EXTREMITIES: trace edema, other - Neuro: comatose state Laboratory Tests Test 12/09/19 18:30 12/10/19 04:25 12/10/19 11:20 White Blood Count 14.5 K/UL (4.8-10.8) H 12.0 K/UL (4.8-10.8) H Red Blood Count 2.86 M/UL (4.70-6.10) L 2.82 M/UL (4.70-6.10) L Hemoglobin 7.7 G/DL (14.2-18.0) L 7.5 G/DL (14.2-18.0) L Hematocrit 23.4 % (42.0-52.0) L 22.4 % (42.0-52.0) L Mean Corpuscular Volume 82 FL (80-99) 79 FL (80-99) L Mean Corpuscular Hemoglobin 27.0 PG (27.0-31.0) 26.5 PG (27.0-31.0) L Mean Corpuscular Hemoglobin Concent 33.0 G/DL (32.0-36.0) 33.5 G/DL (32.0-36.0) Red Cell Distribution Width 18.2 % (11.6-14.8) H 17.1 % (11.6-14.8) H Platelet Count 182 K/UL (150-450) 181 K/UL (150-450) Mean Platelet Volume 8.4 FL (6.5-10.1) 7.3 FL (6.5-10.1) Neutrophils (%) (Auto) % (45.0-75.0) % (45.0-75.0) Lymphocytes (%) (Auto) % (20.0-45.0) % (20.0-45.0) Monocytes (%) (Auto) % (1.0-10.0) % (1.0-10.0) Eosinophils (%) (Auto) % (0.0-3.0) % (0.0-3.0) Basophils (%) (Auto) % (0.0-2.0) % (0.0-2.0) Differential Total Cells Counted 100 100 Neutrophils % (Manual) 77 % (45-75) H 76 % (45-75) H Lymphocytes % (Manual) 15 % (20-45) L 20 % (20-45) Monocytes % (Manual) 8 % (1-10) 4 % (1-10) Eosinophils % (Manual) 0 % (0-3) 0 % (0-3) Basophils % (Manual) 0 % (0-2) 0 % (0-2) Band Neutrophils 0 % (0-8) 0 % (0-8) Platelet Estimate Adequate Adequate Platelet Morphology Normal Normal Hypochromasia 1+ 3+ Anisocytosis 2+ 1+ Stool Occult Blood Pending Sodium Level 126 MMOL/L (136-145) L 136 MMOL/L (136-145) # Potassium Level 3.1 MMOL/L (3.5-5.1) L 3.1 MMOL/L (3.5-5.1) L Chloride Level 97 MMOL/L (98-107) L 103 MMOL/L (98-107) Carbon Dioxide Level 25 MMOL/L (21-32) 26 MMOL/L (21-32) Anion Gap 4 mmol/L (5-15) L 7 mmol/L (5-15) Blood Urea Nitrogen 7 mg/dL (7-18) 5 mg/dL (7-18) L Creatinine 0.5 MG/DL (0.55-1.30) L 0.4 MG/DL (0.55-1.30) L Estimat Glomerular Filtration Rate > 60 mL/min (>60) > 60 mL/min (>60) Glucose Level 149 MG/DL (74-106) H 97 MG/DL (74-106) Calcium Level 8.0 MG/DL (8.5-10.1) L 7.9 MG/DL (8.5-10.1) L Iron Level 10 ug/dL (50-175) L Total Iron Binding Capacity 100 ug/dL (250-450) L Percent Iron Saturation 10 % (15-50) L Unsaturated Iron Binding 90 ug/dL (112-346) L Total Bilirubin 0.7 MG/DL (0.2-1.0) 0.7 MG/DL (0.2-1.0) Aspartate Amino Transf (AST/SGOT) 39 U/L (15-37) H 38 U/L (15-37) H Alanine Aminotransferase (ALT/SGPT) 23 U/L (12-78) 24 U/L (12-78) Alkaline Phosphatase 112 U/L (46-116) 103 U/L (46-116) Total Protein 5.7 G/DL (6.4-8.2) L 5.6 G/DL (6.4-8.2) L Albumin 1.4 G/DL (3.4-5.0) L 1.4 G/DL (3.4-5.0) L Globulin 4.3 g/dL 4.2 g/dL Albumin/Globulin Ratio 0.3 (1.0-2.7) L 0.3 (1.0-2.7) L Magnesium Level 2.6 MG/DL (1.8-2.4) H Thyroid Stimulating Hormone (TSH) 1.568 uiU/mL (0.358-3.740) Microcytosis 1+ Spherocytes 2+ Microbiology Date/Time Source Procedure Growth Status 12/08/19 21:45 Stool Clostridium difficile Toxin Assay - Final Complete 12/08/19 06:00 Rectum VRE Culture - Final Enterococcus Faecium - Vre Complete 12/08/19 06:00 Rectum - Final NO CARBAPENEM-RESISTANT ENTEROBACTERI... Complete 12/08/19 06:00 Nasal Nares MRSA Culture - Final NO METHICILLIN RESISTANT STAPH AUREUS... Complete Assessment/Plan Assessment/Plan Sepsis with shock Respiratory failure Chronic vegetative state Anemia Hypokalemia - total body depl Hypomagnesemia - severe Lactic acidosis PAFib with RVR CRITICAL & GUARDED Abx Resp support IVF hydration Taper off pressors Hold carvedilol and amlodipine until off pressors PRBC transfusion Additional IV Mg++ and K+ Flaco Marques MD Dec 10, 2019 17:05
[2019-12-10] MEDS: Dyna-Hex 2% Top Sol 2oz TOPIC SCH (20:29)
[2019-12-11] VITALS (26 sets, daily range): BP systolic 101–127; BP diastolic 25–59
[2019-12-11] MEDS: NS w/KCl 20mEq 1000ml 1,000 ML IV SCH ×3 (01:19→23:46)
[2019-12-11] MEDS ORDERED: Norepinephrine 4mg/NS Premix 250 ML IV SCH (01:45)
[2019-12-11 05:27] LABS: HEMATOCRIT 22.7 % (42.0-52.0); HEMOGLOBIN 7.5 G/DL (14.2-18.0); MEAN CORPUSCULAR VOLUME 80 FL (80-99); PLATELET COUNT 178 K/UL (150-450); RED BLOOD COUNT 2.85 M/UL (4.70-6.10); RED CELL DISTRIBUTION WIDTH 16.7 % (11.6-14.8); WHITE BLOOD COUNT 9.3 K/UL (4.8-10.8)
[2019-12-11] MEDS: Meropenem 1gm in NS 55ml IVPB SCH ×3 (05:51→21:48)
[2019-12-11 06:13] LABS: ALANINE AMINOTRANSFERASE 26 U/L (12-78); ALBUMIN 1.4 G/DL (3.4-5.0); ALBUMIN/GLOBULIN RATIO 0.3 (1.0-2.7); ALKALINE PHOSPHATASE 114 U/L (46-116); ANION GAP 10 mmol/L (5-15); ASPARTATE AMINO TRANSFERASE 47 U/L (15-37); BILIRUBIN,TOTAL 0.6 MG/DL (0.2-1.0); BLOOD UREA NITROGEN 5 mg/dL (7-18); CARBON DIOXIDE 23 MMOL/L (21-32); CHLORIDE 107 MMOL/L (98-107); CREATININE 0.4 MG/DL (0.55-1.30); POTASSIUM 3.6 MMOL/L (3.5-5.1); SODIUM 140 MMOL/L (136-145)
--- NOTE | 2019-12-11 07:06 | General Progress Note ---
Subjective ROS Limited/Unobtainable: Yes Constitutional: Reports: malaise, weakness HEENT: Reports: no symptoms Cardiovascular: Reports: no symptoms Respiratory: Reports: shortness of breath Gastrointestinal/Abdominal: Reports: diarrhea, difficulty swallowing Neurologic/Psychiatric: Reports: pre-existing deficit Endocrine: Reports: no symptoms Hematologic/Lymphatic: Reports: anemia Allergies: Coded Allergies: No Known Allergies (Unverified , 12/07/19) All Systems: reviewed and negative except above Subjective no events. watery diarrhea. on the vent. pressors weaned down to 1mcg no fevers. no bleeding noted. wbc stable. Objective Last 24 Hour Vital Signs Date Time Temp Pulse Resp B/P (MAP) Pulse Ox O2 Delivery O2 Flow Rate FiO2 12/11/19 06:00 91 20 120/30 (60) 100 12/11/19 05:00 91 20 120/30 (60) 100 12/11/19 04:00 98 12/11/19 04:00 Mechanical Ventilator 12/11/19 04:00 40 12/11/19 04:00 87 21 115/28 (57) 100 12/11/19 03:06 96 25 40 12/11/19 03:00 98.5 91 29 123/30 (61) 100 12/11/19 02:00 92 26 117/59 (78) 100 12/11/19 01:59 127/35 12/11/19 01:00 88 26 126/43 (70) 100 12/11/19 00:00 98.0 90 23 127/38 (67) 100 12/11/19 00:00 40 12/11/19 00:00 Mechanical Ventilator 12/11/19 00:00 97 12/10/19 23:00 129/41 12/10/19 23:00 89 27 129/41 (70) 100 12/10/19 22:57 90 26 40 12/10/19 22:00 127/36 12/10/19 22:00 89 25 127/35 (65) 100 12/10/19 21:00 122/35 12/10/19 21:00 90 27 122/35 (64) 100 12/10/19 20:00 90 12/10/19 20:00 Mechanical Ventilator 12/10/19 20:00 98.2 92 22 126/38 (67) 100 12/10/19 20:00 126/30 12/10/19 20:00 40 12/10/19 19:38 88 25 40 12/10/19 19:00 124/31 12/10/19 19:00 89 26 117/39 (65) 100 12/10/19 18:00 124/51 12/10/19 18:00 93 25 124/51 (75) 100 12/10/19 17:00 98.7 88 25 129/35 (66) 100 12/10/19 17:00 122/54 12/10/19 16:00 85 24 126/35 (65) 100 12/10/19 16:00 40 12/10/19 16:00 Mechanical Ventilator 12/10/19 16:00 84 12/10/19 16:00 127/33 12/10/19 15:08 88 26 40 12/10/19 15:00 86 21 117/38 (64) 100 12/10/19 15:00 117/38 12/10/19 14:30 82 21 129/34 (65) 100 12/10/19 14:00 125/37 12/10/19 14:00 81 26 125/37 (66) 100 12/10/19 13:00 86 26 129/31 (63) 100 12/10/19 13:00 129/31 12/10/19 12:30 84 19 121/42 (68) 100 12/10/19 12:06 84 12/10/19 12:00 40 12/10/19 12:00 Mechanical Ventilator 12/10/19 12:00 130/29 12/10/19 12:00 98.6 86 24 130/29 (62) 100 12/10/19 11:36 132/33 12/10/19 11:30 85 24 130/29 (62) 100 12/10/19 11:12 85 21 40 12/10/19 11:00 86 24 132/39 (70) 100 12/10/19 11:00 124/35 12/10/19 10:30 87 23 132/33 (66) 100 12/10/19 10:00 84 21 124/40 (68) 100 12/10/19 10:00 132/33 12/10/19 09:30 84 23 119/42 (67) 100 12/10/19 09:00 118/42 12/10/19 09:00 98.8 86 22 126/32 (63) 100 12/10/19 08:00 Mechanical Ventilator 12/10/19 08:00 88 17 128/33 (64) 100 12/10/19 08:00 40 12/10/19 08:00 116/46 12/10/19 08:00 90 12/10/19 07:12 85 23 40 Intake and Output 12/10/19 12/11/19 19:00 07:00 Intake Total 1468.75 ml 1151.25 ml Output Total 1600 ml 2210 ml Balance -131.25 ml -1058.75 ml IV Total 1348.75 ml 1151.25 ml Other 120 ml Output Urine Total 800 ml 1010 ml Stool Total 800 ml 1200 ml Laboratory Tests 12/10/19 11:20: White Blood Count 12.0H, Red Blood Count 2.82L, Hemoglobin 7.5L, Hematocrit 22.4L, Mean Corpuscular Volume 79L, Mean Corpuscular Hemoglobin 26.5L, Mean Corpuscular Hemoglobin Concent 33.5, Red Cell Distribution Width 17.1H, Platelet Count 181, Mean Platelet Volume 7.3, Neutrophils (%) (Auto) , Lymphocytes (%) (Auto) , Monocytes (%) (Auto) , Eosinophils (%) (Auto) , Basophils (%) (Auto) , Differential Total Cells Counted 100, Neutrophils % (Manual) 76H, Lymphocytes % (Manual) 20, Monocytes % (Manual) 4, Eosinophils % (Manual) 0, Basophils % (Manual) 0, Band Neutrophils 0, Platelet Estimate Adequate, Platelet Morphology Normal, Hypochromasia 3+, Anisocytosis 1+, Microcytosis 1+, Spherocytes 2+ 12/11/19 04:18: White Blood Count 9.3, Red Blood Count 2.85L, Hemoglobin 7.5L, Hematocrit 22.7L, Mean Corpuscular Volume 80, Mean Corpuscular Hemoglobin 26.3L, Mean Corpuscular Hemoglobin Concent 32.9, Red Cell Distribution Width 16.7H, Platelet Count 178, Mean Platelet Volume 7.0, Neutrophils (%) (Auto) , Lymphocytes (%) (Auto) , Monocytes (%) (Auto) , Eosinophils (%) (Auto) , Basophils (%) (Auto) , Sodium Level 140, Potassium Level 3.6, Chloride Level 107, Carbon Dioxide Level 23, Anion Gap 10, Blood Urea Nitrogen 5L, Creatinine 0.4L, Estimat Glomerular Filtration Rate > 60, Glucose Level 76, Calcium Level 8.0L, Total Bilirubin 0.6, Aspartate Amino Transf (AST/SGOT) 47H, Alanine Aminotransferase (ALT/SGPT) 26, Alkaline Phosphatase 114, Total Protein 5.5L, Albumin 1.4L, Globulin 4.1, Albumin/Globulin Ratio 0.3L Height (Feet): 5 Height (Inches): 10.00 Weight (Pounds): 200 Objective General Appearance: WD/WN, lethargic, confused EENT: normal ENT inspection Neck: non-tender, normal alignment Cardiovascular: normal peripheral pulses, normal rate, regular rhythm Respiratory/Chest: chest wall non-tender, lungs clear, normal breath sounds Abdomen: normal bowel sounds, non tender, soft, no organomegaly Edema: no edema noted Arm (L), no edema noted Arm (R) Neurologic: disoriented, unresponsive Assessment/Plan Problem List: (1) Pneumonia ICD Codes: J18.9 - Pneumonia, unspecified organism SNOMED: 675141773 (2) Rapid atrial fibrillation ICD Codes: I48.91 - Unspecified atrial fibrillation SNOMED: 866208305 (3) Sepsis ICD Codes: A41.9 - Sepsis, unspecified organism SNOMED: 75028991 Status: stable Assessment/Plan: cont pressors wean as able iv abx follow up cultures check stool cdiff transfuse as needed monitor for bleeding replace lytes PPI rx replace lytes cards and ID appreciated critical and guarded Efren Buck MD Dec 11, 2019 07:06
[2019-12-11] MEDS: Ascorbic Acid 500mg tab GT SCH ×2 (08:42→18:17)
[2019-12-11] MEDS: Heparin 5000 units/ml inj SUBQ SCH ×2 (08:43→20:49)
[2019-12-11] MEDS: levETIRAcetam 500mg/5ml Liquid GT SCH ×2 (08:43→20:47)
[2019-12-11] MEDS: Zinc Sulfate 220mg GT SCH (08:43)
--- NOTE | 2019-12-11 11:52 | Infectious Diseases Prog Note ---
Assessment/Plan Assessment/Plan antibiotics : meropenem A 1. serratia sepsis s.p catheter removal 2. e.coli UTI 3. r/o cholecystitis 4. shock resolved 5, leucocytosis resolved 6. respiratory failure s/p tracheostomy 7. seizures P 1. continue meropenem 2. HIDA scan 3. will follow up cultures Subjective ROS Limited/Unobtainable: Yes Allergies: Coded Allergies: No Known Allergies (Unverified , 12/07/19) Objective Last 24 Hour Vital Signs Date Time Temp Pulse Resp B/P (MAP) Pulse Ox O2 Delivery O2 Flow Rate FiO2 12/11/19 11:00 101 24 115/50 (71) 100 12/11/19 10:00 100 23 111/25 (53) 100 12/11/19 09:00 90 23 122/36 (64) 100 12/11/19 08:00 95 12/11/19 08:00 98.3 94 25 120/42 (68) 100 12/11/19 08:00 40 12/11/19 07:05 91 22 40 12/11/19 07:00 93 28 120/38 (65) 100 12/11/19 06:00 91 20 120/30 (60) 100 12/11/19 05:00 91 20 120/30 (60) 100 12/11/19 04:00 98 12/11/19 04:00 Mechanical Ventilator 12/11/19 04:00 40 12/11/19 04:00 87 21 115/28 (57) 100 12/11/19 03:06 96 25 40 12/11/19 03:00 98.5 91 29 123/30 (61) 100 12/11/19 02:00 92 26 117/59 (78) 100 12/11/19 01:59 127/35 12/11/19 01:00 88 26 126/43 (70) 100 12/11/19 00:00 98.0 90 23 127/38 (67) 100 12/11/19 00:00 40 12/11/19 00:00 Mechanical Ventilator 12/11/19 00:00 97 12/10/19 23:00 129/41 12/10/19 23:00 89 27 129/41 (70) 100 12/10/19 22:57 90 26 40 12/10/19 22:00 127/36 12/10/19 22:00 89 25 127/35 (65) 100 12/10/19 21:00 122/35 12/10/19 21:00 90 27 122/35 (64) 100 12/10/19 20:00 90 12/10/19 20:00 Mechanical Ventilator 12/10/19 20:00 98.2 92 22 126/38 (67) 100 12/10/19 20:00 126/30 12/10/19 20:00 40 12/10/19 19:38 88 25 40 12/10/19 19:00 124/31 12/10/19 19:00 89 26 117/39 (65) 100 12/10/19 18:00 124/51 12/10/19 18:00 93 25 124/51 (75) 100 12/10/19 17:00 98.7 88 25 129/35 (66) 100 12/10/19 17:00 122/54 12/10/19 16:00 85 24 126/35 (65) 100 12/10/19 16:00 40 12/10/19 16:00 Mechanical Ventilator 12/10/19 16:00 84 12/10/19 16:00 127/33 12/10/19 15:08 88 26 40 12/10/19 15:00 86 21 117/38 (64) 100 12/10/19 15:00 117/38 12/10/19 14:30 82 21 129/34 (65) 100 12/10/19 14:00 125/37 12/10/19 14:00 81 26 125/37 (66) 100 12/10/19 13:00 86 26 129/31 (63) 100 12/10/19 13:00 129/31 12/10/19 12:30 84 19 121/42 (68) 100 12/10/19 12:06 84 12/10/19 12:00 40 12/10/19 12:00 Mechanical Ventilator 12/10/19 12:00 130/29 12/10/19 12:00 98.6 86 24 130/29 (62) 100 Height (Feet): 5 Height (Inches): 10.00 Weight (Pounds): 200 HEENT: status post trach Respiratory/Chest: lungs clear Cardiovascular: normal rate, regular rhythm, no gallop/murmur Abdomen: soft, non tender, other - GT Extremities: no edema, other - right arm PICC Microbiology Date/Time Source Procedure Growth Status 12/08/19 21:45 Stool Clostridium difficile Toxin Assay - Final Complete Laboratory Tests Test 12/11/19 04:18 White Blood Count 9.3 K/UL (4.8-10.8) Red Blood Count 2.85 M/UL (4.70-6.10) L Hemoglobin 7.5 G/DL (14.2-18.0) L Hematocrit 22.7 % (42.0-52.0) L Mean Corpuscular Volume 80 FL (80-99) Mean Corpuscular Hemoglobin 26.3 PG (27.0-31.0) L Mean Corpuscular Hemoglobin Concent 32.9 G/DL (32.0-36.0) Red Cell Distribution Width 16.7 % (11.6-14.8) H Platelet Count 178 K/UL (150-450) Mean Platelet Volume 7.0 FL (6.5-10.1) Neutrophils (%) (Auto) % (45.0-75.0) Lymphocytes (%) (Auto) % (20.0-45.0) Monocytes (%) (Auto) % (1.0-10.0) Eosinophils (%) (Auto) % (0.0-3.0) Basophils (%) (Auto) % (0.0-2.0) Sodium Level 140 MMOL/L (136-145) Potassium Level 3.6 MMOL/L (3.5-5.1) Chloride Level 107 MMOL/L (98-107) Carbon Dioxide Level 23 MMOL/L (21-32) Anion Gap 10 mmol/L (5-15) Blood Urea Nitrogen 5 mg/dL (7-18) L Creatinine 0.4 MG/DL (0.55-1.30) L Estimat Glomerular Filtration Rate > 60 mL/min (>60) Glucose Level 76 MG/DL (74-106) Calcium Level 8.0 MG/DL (8.5-10.1) L Total Bilirubin 0.6 MG/DL (0.2-1.0) Aspartate Amino Transf (AST/SGOT) 47 U/L (15-37) H Alanine Aminotransferase (ALT/SGPT) 26 U/L (12-78) Alkaline Phosphatase 114 U/L (46-116) Total Protein 5.5 G/DL (6.4-8.2) L Albumin 1.4 G/DL (3.4-5.0) L Globulin 4.1 g/dL Albumin/Globulin Ratio 0.3 (1.0-2.7) L Current Medications Medications (Trade) Dose Ordered Sig/Howard Route PRN Reason Start Time Stop Time Status Last Admin Dose Admin Acetaminophen (Tylenol) 650 mg Q6H PRN GT Mild Pain (Pain Scale 1-3) 12/07/19 18:45 01/06/20 18:44 12/07/19 21:39 Acetaminophen (Tylenol) 650 mg Q6H PRN GT Temp >100.5 12/07/19 19:15 01/06/20 19:14 12/08/19 17:13 Ascorbic Acid (Vitamin C) 500 mg TWICE A DAY GT 12/08/19 09:00 01/07/20 08:59 12/11/19 08:42 Bisacodyl (Dulcolax) 10 mg DAILYPRN PRN RECTAL Constipation 12/07/19 18:45 03/06/20 18:44 Chlorhexidine Gluconate (Ivanna-Hex 2%) 1 applic DAILY@2000 TOPIC 12/08/19 20:00 03/07/20 19:59 12/10/19 20:29 Diphenoxylate HCl/ Atropine (Lomotil) 2.5 mg Q4H PRN GT Diarrhea 12/11/19 07:15 01/10/20 07:14 Famotidine (Pepcid) 20 mg TWICE A DAY GT 12/07/19 18:45 03/06/20 18:44 12/11/19 08:42 Heparin Sodium (Porcine) (Heparin 5000 units/ml) 5,000 units EVERY 12 HOURS SUBQ 12/07/19 21:00 01/21/20 20:59 12/11/19 08:43 Iron Sucrose 100 mg/Sodium Chloride 60 ml @ 240 mls/hr BEDTIME IV 12/11/19 21:00 12/15/19 21:14 Levetiracetam (Keppra) 1,000 mg EVERY 12 HOURS GT 12/07/19 21:00 01/06/20 20:59 12/11/19 08:43 Meropenem 1 gm/ Sodium Chloride 55 ml @ 110 mls/hr Q8HR IVPB 12/09/19 14:00 12/14/19 13:59 12/11/19 05:51 Norepinephrine Bitartrate 250 ml @ 0 mls/hr Q24H IV 12/11/19 01:45 12/14/19 01:39 12/11/19 01:59 Potassium Chloride/Sodium Chloride 1,000 ml @ 100 mls/hr Q10H IV 12/09/19 00:30 01/08/20 00:29 12/11/19 01:19 Zinc Sulfate (Zinc Sulfate) 220 mg DAILY GT 12/07/19 21:00 03/06/20 20:59 12/11/19 08:43 Jeannine Corral MD Dec 11, 2019 11:52
[2019-12-11] MEDS ORDERED: NS 275ml ONE (18:55)
[2019-12-11] MEDS: Dyna-Hex 2% Top Sol 2oz TOPIC SCH (20:47)
[2019-12-11] MEDS: Iron Sucrose 100 MG in NS 55 ML IV SCH (20:50)
--- NOTE | 2019-12-11 21:33 | Consultation ---
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 From his nursing facility he was found increasingly tachypneic with low blood pressure systolics in the 90. No further information provided. atypical occipital wound with pus on admission. surgical leonardo in abdomen and scalp. surgery called to evaluate. patient seen, chart reviewed, patient examined. no n/v/f/c./ labs noted. unable to provide history or participate in exam. on vent support. Allergies: Coded Allergies: No Known Allergies (Unverified , 12/07/19) Medication History Scheduled Amlodipine Besylate* (Amlodipine Besylate*), 5 MG GT DAILY, (Reported) Arginine/Ascorbate Sod/Karma AC (Arginaid Powder), 1 EACH GT BID, (Reported) Ascorbic Acid* (Ascorbic Acid*), 500 MG GT TWICE A DAY, (Reported) Bacitracin Zinc* (Bacitracin Zinc*), 1 APPLIC TOPIC DAILY, (Reported) Carvedilol* (Carvedilol*), 25 MG ORAL EVERY 12 HOURS, (Reported) Dextran 70/Hypromellose (Artificial Tears Eye Drops*), 1 DROP BOTH EYES Q12HR, (Reported) Famotidine* (Pepcid 20mg tablet*), 20 MG GT TWICE A DAY, (Reported) Furosemide* (Lasix*), 20 MG GT DAILY, (Reported) Hydralazine Hcl* (Hydralazine Hcl*), 10 MG GT Q4HR, (Reported) Levetiracetam (Levetiracetam), 1,500 MG GT Q12HR, (Reported) Lorazepam* (Ativan*), 1 MG GT Q4HR, (Reported) Povidone-Iodine (Betadine), ML TP DAILY, (Reported) Sodium Chloride* (Sodium Chloride*), 1 GM GT TID, (Reported) Zinc Oxide (Skin Protectant), GM TP DAILY, (Reported) Zinc Sulfate (Zinc Sulfate*), 220 MG GT DAILY, (Reported) Scheduled PRN Acetaminophen* (Acetaminophen*), 650 MG GT Q4H PRN for Mild Pain/Temp > 100.5, (Reported) Bisacodyl (Dulcolax), 10 MG RC Q24H PRN for Constipation, (Reported) Magnesium Hydroxide* (Milk Of Magnesia*), 30 ML GT DAILY PRN for Constipation, (Reported) Ondansetron* (Zofran*), 4 MG GT Q6H PRN for Nausea & Vomiting, (Reported) Discontinued Medications Levetiracetam (Keppra), 1,000 MG ORAL EVERY 12 HOURS, (Reported) Discontinued Reason: Prescription changed Patient History Limited by: medical condition History Provided By: Medical Record, PMD Healthcare decision maker Resuscitation status Advanced Directive on File Past Medical/Surgical History Past Medical/Surgical History: (1) Pneumonia (2) Rapid atrial fibrillation (3) Sepsis Review of Systems All Other Systems: negative except mentioned in HPI ROS Narrative limited given medical condition Physical Exam General Appearance: no apparent distress Lines, tubes and drains: peripheral HEENT: anicteric, mucous membranes moist, other Neck: supple, trach Respiratory/Chest: decreased breath sounds, on vent Cardiovascular/Chest: normal rate, regular rhythm Abdomen: soft, no mass Extremities: non-tender Skin Exam: warm/dry Neurologic: unresponsiveness, aphasia Last 24 Hour Vital Signs Date Time Temp Pulse Resp B/P (MAP) Pulse Ox O2 Delivery O2 Flow Rate FiO2 12/11/19 19:00 102 29 40 40 12/11/19 19:00 101 25 117/39 (65) 100 12/11/19 18:00 102 32 101/45 (63) 100 12/11/19 17:00 102 28 109/43 (65) 100 12/11/19 16:00 40 12/11/19 16:00 106 12/11/19 16:00 98.4 105 30 116/45 (68) 100 12/11/19 16:00 Mechanical Ventilator 12/11/19 15:05 106 25 40 12/11/19 15:00 105 23 113/45 (67) 100 12/11/19 14:00 103 24 112/59 (76) 100 12/11/19 13:00 102 23 110/39 (62) 100 12/11/19 12:00 Mechanical Ventilator 12/11/19 12:00 98.2 98 20 106/30 (55) 100 12/11/19 12:00 40 12/11/19 12:00 98 12/11/19 11:05 102 24 40 12/11/19 11:00 101 24 115/50 (71) 100 12/11/19 10:00 100 23 111/25 (53) 100 12/11/19 09:00 90 23 122/36 (64) 100 12/11/19 08:00 Mechanical Ventilator 12/11/19 08:00 95 12/11/19 08:00 98.3 94 25 120/42 (68) 100 12/11/19 08:00 40 12/11/19 07:05 91 22 40 12/11/19 07:00 93 28 120/38 (65) 100 12/11/19 06:00 91 20 120/30 (60) 100 12/11/19 05:00 91 20 120/30 (60) 100 12/11/19 04:00 98 12/11/19 04:00 Mechanical Ventilator 12/11/19 04:00 40 12/11/19 04:00 87 21 115/28 (57) 100 12/11/19 03:06 96 25 40 12/11/19 03:00 98.5 91 29 123/30 (61) 100 12/11/19 02:00 92 26 117/59 (78) 100 12/11/19 01:59 127/35 12/11/19 01:00 88 26 126/43 (70) 100 12/11/19 00:00 98.0 90 23 127/38 (67) 100 12/11/19 00:00 40 12/11/19 00:00 Mechanical Ventilator 12/11/19 00:00 97 12/10/19 23:00 129/41 12/10/19 23:00 89 27 129/41 (70) 100 12/10/19 22:57 90 26 40 12/10/19 22:00 127/36 12/10/19 22:00 89 25 127/35 (65) 100 Intake and Output 12/10/19 12/11/19 19:00 07:00 Intake Total 1468.75 ml 1255.00 ml Output Total 1600 ml 2260 ml Balance -131.25 ml -1005.00 ml IV Total 1348.75 ml 1255.00 ml Other 120 ml Output Urine Total 800 ml 1060 ml Stool Total 800 ml 1200 ml Laboratory Tests Test 12/11/19 04:18 White Blood Count 9.3 K/UL (4.8-10.8) Red Blood Count 2.85 M/UL (4.70-6.10) L Hemoglobin 7.5 G/DL (14.2-18.0) L Hematocrit 22.7 % (42.0-52.0) L Mean Corpuscular Volume 80 FL (80-99) Mean Corpuscular Hemoglobin 26.3 PG (27.0-31.0) L Mean Corpuscular Hemoglobin Concent 32.9 G/DL (32.0-36.0) Red Cell Distribution Width 16.7 % (11.6-14.8) H Platelet Count 178 K/UL (150-450) Mean Platelet Volume 7.0 FL (6.5-10.1) Neutrophils (%) (Auto) % (45.0-75.0) Lymphocytes (%) (Auto) % (20.0-45.0) Monocytes (%) (Auto) % (1.0-10.0) Eosinophils (%) (Auto) % (0.0-3.0) Basophils (%) (Auto) % (0.0-2.0) Sodium Level 140 MMOL/L (136-145) Potassium Level 3.6 MMOL/L (3.5-5.1) Chloride Level 107 MMOL/L (98-107) Carbon Dioxide Level 23 MMOL/L (21-32) Anion Gap 10 mmol/L (5-15) Blood Urea Nitrogen 5 mg/dL (7-18) L Creatinine 0.4 MG/DL (0.55-1.30) L Estimat Glomerular Filtration Rate > 60 mL/min (>60) Glucose Level 76 MG/DL (74-106) Calcium Level 8.0 MG/DL (8.5-10.1) L Total Bilirubin 0.6 MG/DL (0.2-1.0) Aspartate Amino Transf (AST/SGOT) 47 U/L (15-37) H Alanine Aminotransferase (ALT/SGPT) 26 U/L (12-78) Alkaline Phosphatase 114 U/L (46-116) Total Protein 5.5 G/DL (6.4-8.2) L Albumin 1.4 G/DL (3.4-5.0) L Globulin 4.1 g/dL Albumin/Globulin Ratio 0.3 (1.0-2.7) L Height (Feet): 5 Height (Inches): 10.00 Weight (Pounds): 200 Medications Current Medications Medications (Trade) Dose Ordered Sig/Howard Route PRN Reason Start Time Stop Time Status Last Admin Dose Admin Acetaminophen (Tylenol) 650 mg Q6H PRN GT Mild Pain (Pain Scale 1-3) 12/07/19 18:45 01/06/20 18:44 12/07/19 21:39 Acetaminophen (Tylenol) 650 mg Q6H PRN GT Temp >100.5 12/07/19 19:15 01/06/20 19:14 12/08/19 17:13 Ascorbic Acid (Vitamin C) 500 mg TWICE A DAY GT 12/08/19 09:00 01/07/20 08:59 12/11/19 18:17 Bisacodyl (Dulcolax) 10 mg DAILYPRN PRN RECTAL Constipation 12/07/19 18:45 03/06/20 18:44 Chlorhexidine Gluconate (Ivanna-Hex 2%) 1 applic DAILY@2000 TOPIC 12/08/19 20:00 03/07/20 19:59 12/11/19 20:47 Diphenoxylate HCl/ Atropine (Lomotil) 2.5 mg Q4H PRN GT Diarrhea 12/11/19 07:15 01/10/20 07:14 Famotidine (Pepcid) 20 mg TWICE A DAY GT 12/07/19 18:45 03/06/20 18:44 12/11/19 18:17 Heparin Sodium (Porcine) (Heparin 5000 units/ml) 5,000 units EVERY 12 HOURS SUBQ 12/07/19 21:00 01/21/20 20:59 12/11/19 20:49 Iron Sucrose 100 mg/Sodium Chloride 60 ml @ 240 mls/hr BEDTIME IV 12/11/19 21:00 12/15/19 21:14 12/11/19 20:50 Levetiracetam (Keppra) 1,000 mg EVERY 12 HOURS GT 12/07/19 21:00 01/06/20 20:59 12/11/19 20:47 Meropenem 1 gm/ Sodium Chloride 55 ml @ 110 mls/hr Q8HR IVPB 12/09/19 14:00 12/14/19 13:59 12/11/19 13:10 Norepinephrine Bitartrate 250 ml @ 0 mls/hr Q24H IV 12/11/19 01:45 12/14/19 01:39 12/11/19 01:59 Potassium Chloride/Sodium Chloride 1,000 ml @ 100 mls/hr Q10H IV 12/09/19 00:30 01/08/20 00:29 12/11/19 12:51 Zinc Sulfate (Zinc Sulfate) 220 mg DAILY GT 12/07/19 21:00 03/06/20 20:59 12/11/19 08:43 Assessment/Plan Problem List: (1) Laceration of scalp Assessment & Plan: patient noted to have right occipital scalp laceration 5cm 1mm dehiscence. serous oozing. no pus at this time. leonardo noted to frontal right scalp leonardo removed dressings applied to wound will monitor no acute surgical intervention planned ICD Codes: S01.01XA - Laceration without foreign body of scalp, initial encounter SNOMED: 558285432 (2) Pneumonia ICD Codes: J18.9 - Pneumonia, unspecified organism SNOMED: 998612043 (3) Rapid atrial fibrillation ICD Codes: I48.91 - Unspecified atrial fibrillation SNOMED: 636787358 (4) Sepsis Assessment & Plan: leukocytosis anemia scalp lac with pus drainage prior now clear abd wound with leonardo in place pna micro noted on abx labs improving leonardo removed from scalp and abdomen wounds evaluated and care plan initiated will monitor thank you ICD Codes: A41.9 - Sepsis, unspecified organism SNOMED: 47974004 Kashif Villalta Dec 11, 2019 21:33
[2019-12-12] VITALS (10 sets, daily range): BP systolic 115–136; BP diastolic 34–68
--- NOTE | 2019-12-12 03:00 | Cardiology Progress Note ---
Subjective DATE OF SERVICE: Dec 11, 2019 Patient remains in ICU Still on pressor support for hypotension; tapering efforts successful. Low hemoglobin, K+, and Mg++ noted; repletion on-going. Objective Last 24 Hour Vital Signs Date Time Temp Pulse Resp B/P (MAP) Pulse Ox O2 Delivery O2 Flow Rate FiO2 12/12/19 01:00 102 26 115/53 (73) 100 12/12/19 00:00 40 12/12/19 00:00 105 21 122/41 (68) 100 12/12/19 00:00 Mechanical Ventilator 12/12/19 00:00 104 12/11/19 23:04 102 25 40 40 12/11/19 23:00 105 29 106/42 (63) 100 12/11/19 22:00 117 30 112/35 (60) 100 12/11/19 21:00 107 27 120/51 (74) 100 12/11/19 20:00 Mechanical Ventilator 12/11/19 20:00 40 12/11/19 20:00 108 12/11/19 20:00 98.6 107 30 124/35 (64) 100 12/11/19 19:00 102 29 40 40 12/11/19 19:00 101 25 117/39 (65) 100 12/11/19 18:00 102 32 101/45 (63) 100 12/11/19 17:00 102 28 109/43 (65) 100 12/11/19 16:00 40 12/11/19 16:00 106 12/11/19 16:00 98.4 105 30 116/45 (68) 100 12/11/19 16:00 Mechanical Ventilator 12/11/19 15:05 106 25 40 12/11/19 15:00 105 23 113/45 (67) 100 12/11/19 14:00 103 24 112/59 (76) 100 12/11/19 13:00 102 23 110/39 (62) 100 12/11/19 12:00 Mechanical Ventilator 12/11/19 12:00 98.2 98 20 106/30 (55) 100 12/11/19 12:00 40 12/11/19 12:00 98 12/11/19 11:05 102 24 40 12/11/19 11:00 101 24 115/50 (71) 100 12/11/19 10:00 100 23 111/25 (53) 100 12/11/19 09:00 90 23 122/36 (64) 100 12/11/19 08:00 Mechanical Ventilator 12/11/19 08:00 95 12/11/19 08:00 98.3 94 25 120/42 (68) 100 12/11/19 08:00 40 12/11/19 07:05 91 22 40 12/11/19 07:00 93 28 120/38 (65) 100 12/11/19 06:00 91 20 120/30 (60) 100 12/11/19 05:00 91 20 120/30 (60) 100 12/11/19 04:00 98 12/11/19 04:00 Mechanical Ventilator 12/11/19 04:00 40 12/11/19 04:00 87 21 115/28 (57) 100 12/11/19 03:06 96 25 40 12/11/19 03:00 98.5 91 29 123/30 (61) 100 ROS: unchanged from my note of 12/07/19. HEENT: Thin Trach secretions RHYTHM: Afib LUNGS: bilateral rhonchi CARDIAC: irregularly irregular ABDOMEN: non tender, soft, distended, G-Tube intact EXTREMITIES: trace edema, other - Neuro: comatose state Laboratory Tests Test 12/11/19 04:18 White Blood Count 9.3 K/UL (4.8-10.8) Red Blood Count 2.85 M/UL (4.70-6.10) L Hemoglobin 7.5 G/DL (14.2-18.0) L Hematocrit 22.7 % (42.0-52.0) L Mean Corpuscular Volume 80 FL (80-99) Mean Corpuscular Hemoglobin 26.3 PG (27.0-31.0) L Mean Corpuscular Hemoglobin Concent 32.9 G/DL (32.0-36.0) Red Cell Distribution Width 16.7 % (11.6-14.8) H Platelet Count 178 K/UL (150-450) Mean Platelet Volume 7.0 FL (6.5-10.1) Neutrophils (%) (Auto) % (45.0-75.0) Lymphocytes (%) (Auto) % (20.0-45.0) Monocytes (%) (Auto) % (1.0-10.0) Eosinophils (%) (Auto) % (0.0-3.0) Basophils (%) (Auto) % (0.0-2.0) Sodium Level 140 MMOL/L (136-145) Potassium Level 3.6 MMOL/L (3.5-5.1) Chloride Level 107 MMOL/L (98-107) Carbon Dioxide Level 23 MMOL/L (21-32) Anion Gap 10 mmol/L (5-15) Blood Urea Nitrogen 5 mg/dL (7-18) L Creatinine 0.4 MG/DL (0.55-1.30) L Estimat Glomerular Filtration Rate > 60 mL/min (>60) Glucose Level 76 MG/DL (74-106) Calcium Level 8.0 MG/DL (8.5-10.1) L Total Bilirubin 0.6 MG/DL (0.2-1.0) Aspartate Amino Transf (AST/SGOT) 47 U/L (15-37) H Alanine Aminotransferase (ALT/SGPT) 26 U/L (12-78) Alkaline Phosphatase 114 U/L (46-116) Total Protein 5.5 G/DL (6.4-8.2) L Albumin 1.4 G/DL (3.4-5.0) L Globulin 4.1 g/dL Albumin/Globulin Ratio 0.3 (1.0-2.7) L Assessment/Plan Assessment/Plan Sepsis with shock Respiratory failure Chronic vegetative state Anemia Hypokalemia - total body depl Hypomagnesemia - severe Lactic acidosis PAFib with RVR CRITICAL & GUARDED Abx Resp support IVF hydration Taper off pressors Hold carvedilol and amlodipine until off pressors PRBC transfusion Replace IV Mg++ and K+ as needed Falco Marques MD Dec 12, 2019 03:00
[2019-12-12] MEDS: Meropenem 1gm in NS 55ml IVPB SCH ×3 (05:17→22:10)
[2019-12-12 05:41] LABS: HEMATOCRIT 20.8 % (42.0-52.0); MEAN CORPUSCULAR VOLUME 80 FL (80-99); PLATELET COUNT 192 K/UL (150-450); RED BLOOD COUNT 2.59 M/UL (4.70-6.10); RED CELL DISTRIBUTION WIDTH 17.5 % (11.6-14.8); WHITE BLOOD COUNT 9.8 K/UL (4.8-10.8)
[2019-12-12 06:02] LABS: HEMOGLOBIN 6.8 G/DL (14.2-18.0)
[2019-12-12 06:17] LABS: ALANINE AMINOTRANSFERASE 28 U/L (12-78); ALBUMIN 1.4 G/DL (3.4-5.0); ALBUMIN/GLOBULIN RATIO 0.4 (1.0-2.7); ALKALINE PHOSPHATASE 92 U/L (46-116); ANION GAP 11 mmol/L (5-15); ASPARTATE AMINO TRANSFERASE 52 U/L (15-37); BILIRUBIN,TOTAL 0.6 MG/DL (0.2-1.0); BLOOD UREA NITROGEN 4 mg/dL (7-18); CALCIUM 7.9 MG/DL (8.5-10.1); CARBON DIOXIDE 20 MMOL/L (21-32); CHLORIDE 110 MMOL/L (98-107); CREATININE 0.4 MG/DL (0.55-1.30); POTASSIUM 3.8 MMOL/L (3.5-5.1); SODIUM 141 MMOL/L (136-145)
[2019-12-12] MEDS: NS w/KCl 20mEq 1000ml 1,000 ML IV SCH ×2 (08:53→18:33)
--- NOTE | 2019-12-12 09:11 | General Progress Note ---
Subjective ROS Limited/Unobtainable: Yes Constitutional: Reports: malaise, weakness HEENT: Reports: no symptoms Cardiovascular: Reports: no symptoms Respiratory: Reports: sputum Gastrointestinal/Abdominal: Reports: difficulty swallowing Genitourinary: Reports: no symptoms Neurologic/Psychiatric: Reports: pre-existing deficit, seizure Endocrine: Reports: no symptoms Hematologic/Lymphatic: Reports: anemia Allergies: Coded Allergies: No Known Allergies (Unverified , 12/07/19) All Systems: reviewed and negative except above Subjective bp stable. transferred out of the icu. no reports of bleeding. WBC trend down. tolerating feeds. Objective Last 24 Hour Vital Signs Date Time Temp Pulse Resp B/P (MAP) Pulse Ox O2 Delivery O2 Flow Rate FiO2 12/12/19 08:00 98.2 92 23 133/49 (77) 100 12/12/19 08:00 40 12/12/19 07:20 94 24 40 12/12/19 05:00 85 21 117/36 (63) 100 12/12/19 04:00 Mechanical Ventilator 12/12/19 04:00 40 12/12/19 04:00 87 12/12/19 04:00 89 26 119/34 (62) 100 12/12/19 03:11 93 24 40 40 12/12/19 03:00 98.2 93 33 120/40 (66) 100 12/12/19 02:00 104 26 116/44 (68) 100 12/12/19 01:00 102 26 115/53 (73) 100 12/12/19 00:00 40 12/12/19 00:00 98.4 105 21 122/41 (68) 100 12/12/19 00:00 Mechanical Ventilator 12/12/19 00:00 104 12/11/19 23:04 102 25 40 40 12/11/19 23:00 105 29 106/42 (63) 100 12/11/19 22:00 117 30 112/35 (60) 100 12/11/19 21:00 107 27 120/51 (74) 100 12/11/19 20:00 Mechanical Ventilator 12/11/19 20:00 40 12/11/19 20:00 108 12/11/19 20:00 98.6 107 30 124/35 (64) 100 12/11/19 19:00 102 29 40 40 12/11/19 19:00 101 25 117/39 (65) 100 12/11/19 18:00 102 32 101/45 (63) 100 12/11/19 17:00 102 28 109/43 (65) 100 12/11/19 16:00 40 12/11/19 16:00 106 12/11/19 16:00 98.4 105 30 116/45 (68) 100 12/11/19 16:00 Mechanical Ventilator 12/11/19 15:05 106 25 40 12/11/19 15:00 105 23 113/45 (67) 100 12/11/19 14:00 103 24 112/59 (76) 100 12/11/19 13:00 102 23 110/39 (62) 100 12/11/19 12:00 Mechanical Ventilator 12/11/19 12:00 98.2 98 20 106/30 (55) 100 12/11/19 12:00 40 12/11/19 12:00 98 12/11/19 11:05 102 24 40 12/11/19 11:00 101 24 115/50 (71) 100 12/11/19 10:00 100 23 111/25 (53) 100 Intake and Output 12/11/19 12/12/19 18:59 06:59 Intake Total 1077.50 ml 615 ml Output Total 1360 ml 1075 ml Balance -282.50 ml -460 ml IV Total 1077.50 ml 615 ml Output Urine Total 460 ml 475 ml Stool Total 900 ml 600 ml Laboratory Tests 12/12/19 04:20: White Blood Count 9.8, Red Blood Count 2.59L, Hemoglobin 6.8*L, Hematocrit 20.8L , Mean Corpuscular Volume 80, Mean Corpuscular Hemoglobin 26.3L, Mean Corpuscular Hemoglobin Concent 32.7, Red Cell Distribution Width 17.5H, Platelet Count 192, Mean Platelet Volume 6.8, Neutrophils (%) (Auto) , Lymphocytes (%) (Auto) , Monocytes (%) (Auto) , Eosinophils (%) (Auto) , Basophils (%) (Auto) , Differential Total Cells Counted 100, Neutrophils % (Manual) 71, Lymphocytes % (Manual) 26, Monocytes % (Manual) 3, Eosinophils % (Manual) 0, Basophils % (Manual) 0, Band Neutrophils 0, Platelet Estimate Adequate, Platelet Morphology Normal, Hypochromasia 1+, Anisocytosis 1+, Microcytosis 1+, Sodium Level 141, Potassium Level 3.8, Chloride Level 110H, Carbon Dioxide Level 20L, Anion Gap 11, Blood Urea Nitrogen 4L, Creatinine 0.4L, Estimat Glomerular Filtration Rate > 60, Glucose Level 74, Calcium Level 7.9L, Total Bilirubin 0.6, Aspartate Amino Transf (AST/SGOT) 52H, Alanine Aminotransferase (ALT/SGPT) 28, Alkaline Phosphatase 92, Total Protein 4.8L, Albumin 1.4L, Globulin 3.4, Albumin/Globulin Ratio 0.4L Height (Feet): 5 Height (Inches): 10.00 Weight (Pounds): 200 Objective General Appearance: WD/WN, lethargic, confused EENT: normal ENT inspection Neck: non-tender, normal alignment Cardiovascular: normal peripheral pulses, normal rate, regular rhythm Respiratory/Chest: chest wall non-tender, lungs clear, normal breath sounds Abdomen: normal bowel sounds, non tender, soft, no organomegaly Edema: no edema noted Arm (L), no edema noted Arm (R) Neurologic: disoriented, unresponsive Assessment/Plan Problem List: (1) Pneumonia ICD Codes: J18.9 - Pneumonia, unspecified organism SNOMED: 429961860 (2) Rapid atrial fibrillation ICD Codes: I48.91 - Unspecified atrial fibrillation SNOMED: 793295445 (3) Sepsis ICD Codes: A41.9 - Sepsis, unspecified organism SNOMED: 14208545 Status: stable Assessment/Plan: monitor bp wean as able iv abx follow up cultures transfuse as needed monitor for bleeding replace lytes PPI rx replace lytes cards and ID appreciated guarded but improving message left with sister re: status and poc Efren Buck MD Dec 12, 2019 09:11
[2019-12-12] MEDS: levETIRAcetam 500mg/5ml Liquid GT SCH ×2 (09:22→20:30)
[2019-12-12] MEDS: Ascorbic Acid 500mg tab GT SCH ×2 (09:22→18:32)
[2019-12-12] MEDS: Heparin 5000 units/ml inj SUBQ SCH ×2 (09:23→20:31)
[2019-12-12] MEDS: Zinc Sulfate 220mg GT SCH (09:25)
--- NOTE | 2019-12-12 11:17 | Infectious Diseases Prog Note ---
Assessment/Plan Assessment/Plan antibiotics : meropenem A 1. serratia sepsis s.p catheter removal 2. e.coli UTI 3. r/o cholecystitis 4. shock resolved 5, leucocytosis resolved 6. respiratory failure s/p tracheostomy 7. seizures P 1. continue meropenem 2. HIDA scan pending 3. will follow up cultures Subjective ROS Limited/Unobtainable: Yes Allergies: Coded Allergies: No Known Allergies (Unverified , 12/07/19) Objective Last 24 Hour Vital Signs Date Time Temp Pulse Resp B/P (MAP) Pulse Ox O2 Delivery O2 Flow Rate FiO2 12/12/19 10:50 89 21 35 12/12/19 08:00 Mechanical Ventilator 12/12/19 08:00 89 12/12/19 08:00 98.2 92 23 133/49 (77) 100 12/12/19 08:00 40 12/12/19 07:20 94 24 40 12/12/19 05:00 85 21 117/36 (63) 100 12/12/19 04:00 Mechanical Ventilator 12/12/19 04:00 40 12/12/19 04:00 87 12/12/19 04:00 89 26 119/34 (62) 100 12/12/19 03:11 93 24 40 40 12/12/19 03:00 98.2 93 33 120/40 (66) 100 12/12/19 02:00 104 26 116/44 (68) 100 12/12/19 01:00 102 26 115/53 (73) 100 12/12/19 00:00 40 12/12/19 00:00 98.4 105 21 122/41 (68) 100 12/12/19 00:00 Mechanical Ventilator 12/12/19 00:00 104 12/11/19 23:04 102 25 40 40 12/11/19 23:00 105 29 106/42 (63) 100 12/11/19 22:00 117 30 112/35 (60) 100 12/11/19 21:00 107 27 120/51 (74) 100 12/11/19 20:00 Mechanical Ventilator 12/11/19 20:00 40 12/11/19 20:00 108 12/11/19 20:00 98.6 107 30 124/35 (64) 100 12/11/19 19:00 102 29 40 40 12/11/19 19:00 101 25 117/39 (65) 100 12/11/19 18:00 102 32 101/45 (63) 100 12/11/19 17:00 102 28 109/43 (65) 100 12/11/19 16:00 40 12/11/19 16:00 106 12/11/19 16:00 98.4 105 30 116/45 (68) 100 12/11/19 16:00 Mechanical Ventilator 12/11/19 15:05 106 25 40 12/11/19 15:00 105 23 113/45 (67) 100 12/11/19 14:00 103 24 112/59 (76) 100 12/11/19 13:00 102 23 110/39 (62) 100 12/11/19 12:00 Mechanical Ventilator 12/11/19 12:00 98.2 98 20 106/30 (55) 100 12/11/19 12:00 40 12/11/19 12:00 98 Height (Feet): 5 Height (Inches): 10.00 Weight (Pounds): 200 HEENT: status post trach Respiratory/Chest: lungs clear Cardiovascular: normal rate, regular rhythm, no gallop/murmur Abdomen: soft, non tender, other - GT Extremities: other - + edema, right arm PICC Laboratory Tests Test 12/12/19 04:20 White Blood Count 9.8 K/UL (4.8-10.8) Red Blood Count 2.59 M/UL (4.70-6.10) L Hemoglobin 6.8 G/DL (14.2-18.0) *L Hematocrit 20.8 % (42.0-52.0) L Mean Corpuscular Volume 80 FL (80-99) Mean Corpuscular Hemoglobin 26.3 PG (27.0-31.0) L Mean Corpuscular Hemoglobin Concent 32.7 G/DL (32.0-36.0) Red Cell Distribution Width 17.5 % (11.6-14.8) H Platelet Count 192 K/UL (150-450) Mean Platelet Volume 6.8 FL (6.5-10.1) Neutrophils (%) (Auto) % (45.0-75.0) Lymphocytes (%) (Auto) % (20.0-45.0) Monocytes (%) (Auto) % (1.0-10.0) Eosinophils (%) (Auto) % (0.0-3.0) Basophils (%) (Auto) % (0.0-2.0) Differential Total Cells Counted 100 Neutrophils % (Manual) 71 % (45-75) Lymphocytes % (Manual) 26 % (20-45) Monocytes % (Manual) 3 % (1-10) Eosinophils % (Manual) 0 % (0-3) Basophils % (Manual) 0 % (0-2) Band Neutrophils 0 % (0-8) Platelet Estimate Adequate Platelet Morphology Normal Hypochromasia 1+ Anisocytosis 1+ Microcytosis 1+ Sodium Level 141 MMOL/L (136-145) Potassium Level 3.8 MMOL/L (3.5-5.1) Chloride Level 110 MMOL/L (98-107) H Carbon Dioxide Level 20 MMOL/L (21-32) L Anion Gap 11 mmol/L (5-15) Blood Urea Nitrogen 4 mg/dL (7-18) L Creatinine 0.4 MG/DL (0.55-1.30) L Estimat Glomerular Filtration Rate > 60 mL/min (>60) Glucose Level 74 MG/DL (74-106) Calcium Level 7.9 MG/DL (8.5-10.1) L Total Bilirubin 0.6 MG/DL (0.2-1.0) Aspartate Amino Transf (AST/SGOT) 52 U/L (15-37) H Alanine Aminotransferase (ALT/SGPT) 28 U/L (12-78) Alkaline Phosphatase 92 U/L (46-116) Total Protein 4.8 G/DL (6.4-8.2) L Albumin 1.4 G/DL (3.4-5.0) L Globulin 3.4 g/dL Albumin/Globulin Ratio 0.4 (1.0-2.7) L Current Medications Medications (Trade) Dose Ordered Sig/Howard Route PRN Reason Start Time Stop Time Status Last Admin Dose Admin Acetaminophen (Tylenol) 650 mg Q6H PRN GT Mild Pain (Pain Scale 1-3) 12/07/19 18:45 01/06/20 18:44 12/07/19 21:39 Acetaminophen (Tylenol) 650 mg Q6H PRN GT Temp >100.5 12/07/19 19:15 01/06/20 19:14 12/08/19 17:13 Ascorbic Acid (Vitamin C) 500 mg TWICE A DAY GT 12/08/19 09:00 01/07/20 08:59 12/12/19 09:22 Bisacodyl (Dulcolax) 10 mg DAILYPRN PRN RECTAL Constipation 12/07/19 18:45 03/06/20 18:44 Chlorhexidine Gluconate (Ivanna-Hex 2%) 1 applic DAILY@2000 TOPIC 12/08/19 20:00 03/07/20 19:59 12/11/19 20:47 Diphenoxylate HCl/ Atropine (Lomotil) 2.5 mg Q4H PRN GT Diarrhea 12/11/19 07:15 01/10/20 07:14 Famotidine (Pepcid) 20 mg TWICE A DAY GT 12/07/19 18:45 03/06/20 18:44 12/12/19 09:22 Heparin Sodium (Porcine) (Heparin 5000 units/ml) 5,000 units EVERY 12 HOURS SUBQ 12/07/19 21:00 01/21/20 20:59 12/12/19 09:23 Iron Sucrose 100 mg/Sodium Chloride 60 ml @ 240 mls/hr BEDTIME IV 12/11/19 21:00 12/15/19 21:14 12/11/19 20:50 Levetiracetam (Keppra) 1,000 mg EVERY 12 HOURS GT 12/07/19 21:00 01/06/20 20:59 12/12/19 09:22 Meropenem 1 gm/ Sodium Chloride 55 ml @ 110 mls/hr Q8HR IVPB 12/09/19 14:00 12/14/19 13:59 12/12/19 05:17 Potassium Chloride/Sodium Chloride 1,000 ml @ 100 mls/hr Q10H IV 12/09/19 00:30 01/08/20 00:29 12/12/19 08:53 Zinc Sulfate (Zinc Sulfate) 220 mg DAILY GT 12/07/19 21:00 03/06/20 20:59 12/12/19 09:25 Jeannine Corral MD Dec 12, 2019 11:17
[2019-12-12] MEDS: Dyna-Hex 2% Top Sol 2oz TOPIC SCH (20:30)
[2019-12-12] MEDS: Iron Sucrose 100 MG in NS 55 ML IV SCH (20:31)
--- NOTE | 2019-12-12 22:31 | Cardiology Progress Note ---
Subjective DATE OF SERVICE: Dec 12, 2019 Patient remains in ICU Had been on pressor support for hypotension; now tapered off. Low hemoglobin, K+, and Mg++ noted yesterday; repletion on-going. Objective Last 24 Hour Vital Signs Date Time Temp Pulse Resp B/P (MAP) Pulse Ox O2 Delivery O2 Flow Rate FiO2 12/12/19 20:00 98.2 87 22 131/68 (89) 100 12/12/19 20:00 95 12/12/19 20:00 Mechanical Ventilator 12/12/19 20:00 40 12/12/19 19:30 92 28 28 12/12/19 16:00 83 12/12/19 16:00 Mechanical Ventilator 12/12/19 16:00 97.9 63 20 133/67 (89) 99 12/12/19 16:00 40 12/12/19 15:10 87 20 28 12/12/19 12:00 40 12/12/19 12:00 Mechanical Ventilator 12/12/19 12:00 98.6 89 26 136/68 (90) 100 12/12/19 10:50 89 21 35 12/12/19 08:00 Mechanical Ventilator 12/12/19 08:00 89 12/12/19 08:00 98.2 92 23 133/49 (77) 100 12/12/19 08:00 40 12/12/19 07:20 94 24 40 12/12/19 05:00 85 21 117/36 (63) 100 12/12/19 04:00 Mechanical Ventilator 12/12/19 04:00 40 12/12/19 04:00 87 12/12/19 04:00 89 26 119/34 (62) 100 12/12/19 03:11 93 24 40 40 12/12/19 03:00 98.2 93 33 120/40 (66) 100 12/12/19 02:00 104 26 116/44 (68) 100 12/12/19 01:00 102 26 115/53 (73) 100 12/12/19 00:00 40 12/12/19 00:00 98.4 105 21 122/41 (68) 100 12/12/19 00:00 Mechanical Ventilator 12/12/19 00:00 104 12/11/19 23:04 102 25 40 40 12/11/19 23:00 105 29 106/42 (63) 100 ROS: unchanged from my note of 12/07/19. HEENT: Thin Trach secretions RHYTHM: Afib LUNGS: bilateral rhonchi CARDIAC: irregularly irregular ABDOMEN: non tender, soft, distended, G-Tube intact EXTREMITIES: trace edema, other - Neuro: comatose state Laboratory Tests Test 12/12/19 04:20 White Blood Count 9.8 K/UL (4.8-10.8) Red Blood Count 2.59 M/UL (4.70-6.10) L Hemoglobin 6.8 G/DL (14.2-18.0) *L Hematocrit 20.8 % (42.0-52.0) L Mean Corpuscular Volume 80 FL (80-99) Mean Corpuscular Hemoglobin 26.3 PG (27.0-31.0) L Mean Corpuscular Hemoglobin Concent 32.7 G/DL (32.0-36.0) Red Cell Distribution Width 17.5 % (11.6-14.8) H Platelet Count 192 K/UL (150-450) Mean Platelet Volume 6.8 FL (6.5-10.1) Neutrophils (%) (Auto) % (45.0-75.0) Lymphocytes (%) (Auto) % (20.0-45.0) Monocytes (%) (Auto) % (1.0-10.0) Eosinophils (%) (Auto) % (0.0-3.0) Basophils (%) (Auto) % (0.0-2.0) Differential Total Cells Counted 100 Neutrophils % (Manual) 71 % (45-75) Lymphocytes % (Manual) 26 % (20-45) Monocytes % (Manual) 3 % (1-10) Eosinophils % (Manual) 0 % (0-3) Basophils % (Manual) 0 % (0-2) Band Neutrophils 0 % (0-8) Platelet Estimate Adequate Platelet Morphology Normal Hypochromasia 1+ Anisocytosis 1+ Microcytosis 1+ Sodium Level 141 MMOL/L (136-145) Potassium Level 3.8 MMOL/L (3.5-5.1) Chloride Level 110 MMOL/L (98-107) H Carbon Dioxide Level 20 MMOL/L (21-32) L Anion Gap 11 mmol/L (5-15) Blood Urea Nitrogen 4 mg/dL (7-18) L Creatinine 0.4 MG/DL (0.55-1.30) L Estimat Glomerular Filtration Rate > 60 mL/min (>60) Glucose Level 74 MG/DL (74-106) Calcium Level 7.9 MG/DL (8.5-10.1) L Total Bilirubin 0.6 MG/DL (0.2-1.0) Aspartate Amino Transf (AST/SGOT) 52 U/L (15-37) H Alanine Aminotransferase (ALT/SGPT) 28 U/L (12-78) Alkaline Phosphatase 92 U/L (46-116) Total Protein 4.8 G/DL (6.4-8.2) L Albumin 1.4 G/DL (3.4-5.0) L Globulin 3.4 g/dL Albumin/Globulin Ratio 0.4 (1.0-2.7) L Assessment/Plan Assessment/Plan Sepsis with shock Respiratory failure Chronic vegetative state Anemia Hypokalemia - total body depl Hypomagnesemia - severe Lactic acidosis PAFib with RVR CRITICAL & GUARDED Abx Resp support IVF hydration Hold carvedilol and amlodipine until BP parameters warrent resumption. PRBC transfusion as needed. Replace IV Mg++ and K+ as needed Flaco Marques MD Dec 12, 2019 22:31
[2019-12-13] VITALS: BP 143/75
[2019-12-13 04:00] VITALS: BP 135/76
[2019-12-13 05:12] LABS: BASOPHILS % (AUTO) 0.5 % (0.0-2.0); EOSINOPHILS % (AUTO) 0.2 % (0.0-3.0); HEMATOCRIT 24.8 % (42.0-52.0); HEMOGLOBIN 8.2 G/DL (14.2-18.0); LYMPHOCYTES % (AUTO) 24.2 % (20.0-45.0); MEAN CORPUSCULAR VOLUME 80 FL (80-99); MONOCYTES % (AUTO) 9.2 % (1.0-10.0); NEUTROPHILS % (AUTO) 65.9 % (45.0-75.0); PLATELET COUNT 226 K/UL (150-450); RED BLOOD COUNT 3.08 M/UL (4.70-6.10); RED CELL DISTRIBUTION WIDTH 16.3 % (11.6-14.8); WHITE BLOOD COUNT 10.5 K/UL (4.8-10.8)
[2019-12-13 05:34] LABS: ALANINE AMINOTRANSFERASE 25 U/L (12-78); ALBUMIN 1.5 G/DL (3.4-5.0); ALBUMIN/GLOBULIN RATIO 0.4 (1.0-2.7); ALKALINE PHOSPHATASE 94 U/L (46-116); ANION GAP 9 mmol/L (5-15); ASPARTATE AMINO TRANSFERASE 44 U/L (15-37); BILIRUBIN,TOTAL 0.8 MG/DL (0.2-1.0); BLOOD UREA NITROGEN 4 mg/dL (7-18); CALCIUM 8.2 MG/DL (8.5-10.1); CARBON DIOXIDE 20 MMOL/L (21-32); CHLORIDE 111 MMOL/L (98-107); CREATININE 0.4 MG/DL (0.55-1.30); POTASSIUM 4.1 MMOL/L (3.5-5.1); SODIUM 140 MMOL/L (136-145)
[2019-12-13] MEDS: Meropenem 1gm in NS 55ml IVPB SCH ×3 (05:39→22:09)
[2019-12-13] MEDS: NS w/KCl 20mEq 1000ml 1,000 ML IV SCH ×2 (05:39→14:30)
[2019-12-13 08:00] VITALS: BP 133/93
[2019-12-13] MEDS: levETIRAcetam 500mg/5ml Liquid GT SCH ×2 (09:07→20:18)
[2019-12-13] MEDS: Ascorbic Acid 500mg tab GT SCH ×2 (09:08→18:09)
[2019-12-13] MEDS: Zinc Sulfate 220mg GT SCH (09:08)
[2019-12-13] MEDS: Heparin 5000 units/ml inj SUBQ SCH ×2 (09:10→20:20)
[2019-12-13 12:00] VITALS: BP 139/86
--- NOTE | 2019-12-13 12:44 | Surgery Progress Note ---
Surgery Progress Note Subjective Additional Comments scalp lac stable sutures sites since removal okay labs noted Objective Last 24 Hour Vital Signs Date Time Temp Pulse Resp B/P (MAP) Pulse Ox O2 Delivery O2 Flow Rate FiO2 12/13/19 12:00 40 12/13/19 12:00 98.6 95 24 139/86 (103) 100 12/13/19 12:00 Mechanical Ventilator 12/13/19 11:00 98 25 28 12/13/19 08:00 Mechanical Ventilator 12/13/19 08:00 40 12/13/19 08:00 98.4 95 26 133/93 (106) 100 12/13/19 08:00 98 12/13/19 07:15 93 25 28 12/13/19 04:00 98.1 100 28 135/76 (95) 100 12/13/19 04:00 40 12/13/19 04:00 Mechanical Ventilator 12/13/19 04:00 93 12/13/19 03:29 91 29 28 12/13/19 00:00 40 12/13/19 00:00 Mechanical Ventilator 12/13/19 00:00 97.9 91 25 143/75 (97) 100 12/13/19 00:00 93 12/12/19 23:08 90 25 28 12/12/19 20:00 98.2 87 22 131/68 (89) 100 12/12/19 20:00 95 12/12/19 20:00 Mechanical Ventilator 12/12/19 20:00 40 12/12/19 19:30 92 28 28 12/12/19 16:00 83 12/12/19 16:00 Mechanical Ventilator 12/12/19 16:00 97.9 63 20 133/67 (89) 99 12/12/19 16:00 40 12/12/19 15:10 87 20 28 I&O Intake and Output 12/12/19 12/13/19 18:59 06:59 Intake Total 1000 ml 1470 ml Output Total 600 ml 1200 ml Balance 400 ml 270 ml Intake Free Water 150 ml IV Total 1000 ml 1100 ml Tube Feeding 220 ml Output Urine Total 600 ml 1200 ml # Bowel Movements 100 Dressing: saturated Wound: other Cardiovascular: RSR Respiratory: decreased breath sounds Abdomen: soft, non-tender, present bowel sounds Extremities: no edema, no tenderness, no cyanosis Laboratory Tests Test 12/13/19 03:00 White Blood Count 10.5 K/UL (4.8-10.8) Red Blood Count 3.08 M/UL (4.70-6.10) L Hemoglobin 8.2 G/DL (14.2-18.0) L Hematocrit 24.8 % (42.0-52.0) L Mean Corpuscular Volume 80 FL (80-99) Mean Corpuscular Hemoglobin 26.7 PG (27.0-31.0) L Mean Corpuscular Hemoglobin Concent 33.2 G/DL (32.0-36.0) Red Cell Distribution Width 16.3 % (11.6-14.8) H Platelet Count 226 K/UL (150-450) Mean Platelet Volume 6.8 FL (6.5-10.1) Neutrophils (%) (Auto) 65.9 % (45.0-75.0) Lymphocytes (%) (Auto) 24.2 % (20.0-45.0) Monocytes (%) (Auto) 9.2 % (1.0-10.0) Eosinophils (%) (Auto) 0.2 % (0.0-3.0) Basophils (%) (Auto) 0.5 % (0.0-2.0) Sodium Level 140 MMOL/L (136-145) Potassium Level 4.1 MMOL/L (3.5-5.1) Chloride Level 111 MMOL/L (98-107) H Carbon Dioxide Level 20 MMOL/L (21-32) L Anion Gap 9 mmol/L (5-15) Blood Urea Nitrogen 4 mg/dL (7-18) L Creatinine 0.4 MG/DL (0.55-1.30) L Estimat Glomerular Filtration Rate > 60 mL/min (>60) Glucose Level 71 MG/DL (74-106) L Calcium Level 8.2 MG/DL (8.5-10.1) L Total Bilirubin 0.8 MG/DL (0.2-1.0) Aspartate Amino Transf (AST/SGOT) 44 U/L (15-37) H Alanine Aminotransferase (ALT/SGPT) 25 U/L (12-78) Alkaline Phosphatase 94 U/L (46-116) Total Protein 5.6 G/DL (6.4-8.2) L Albumin 1.5 G/DL (3.4-5.0) L Globulin 4.1 g/dL Albumin/Globulin Ratio 0.4 (1.0-2.7) L Plan Problems: (1) Laceration of scalp Assessment & Plan: patient noted to have right occipital scalp laceration 5cm 1mm dehiscence. serous oozing. no pus at this time. --hold on leonardo or closure given secondary intention and age of wound leonardo noted to frontal right scalp leonardo removed dressings applied to wound will monitor no acute surgical intervention planned (2) Pneumonia (3) Rapid atrial fibrillation (4) Sepsis Assessment & Plan: leukocytosis anemia scalp lac with pus drainage prior now clear abd wound with leonardo in place pna micro noted on abx labs improving leonardo removed from scalp and abdomen wounds evaluated and care plan initiated will monitor thank you Kashif Villalta Dec 13, 2019 12:44
[2019-12-13 16:00] VITALS: BP 132/78
[2019-12-13 20:00] VITALS: BP 119/70
[2019-12-13] MEDS: Iron Sucrose 100 MG in NS 55 ML IV SCH (20:19)
[2019-12-13] MEDS: Dyna-Hex 2% Top Sol 2oz TOPIC SCH (20:24)
--- NOTE | 2019-12-13 21:47 | General Progress Note ---
Subjective ROS Limited/Unobtainable: Yes Constitutional: Reports: malaise, weakness HEENT: Reports: no symptoms Cardiovascular: Reports: no symptoms Respiratory: Reports: shortness of breath, sputum Gastrointestinal/Abdominal: Reports: difficulty swallowing Genitourinary: Reports: no symptoms Neurologic/Psychiatric: Reports: pre-existing deficit, seizure Endocrine: Reports: no symptoms Hematologic/Lymphatic: Reports: anemia Allergies: Coded Allergies: No Known Allergies (Unverified , 12/07/19) All Systems: reviewed and negative except above Subjective bp stable. remains on the vent. awake but confused. no fevers or chills. Abd us noted. HIDA ordered. on multiple iv abx. Objective Last 24 Hour Vital Signs Date Time Temp Pulse Resp B/P (MAP) Pulse Ox O2 Delivery O2 Flow Rate FiO2 12/13/19 19:28 97 24 28 12/13/19 16:00 40 12/13/19 16:00 98.2 89 23 132/78 (96) 100 12/13/19 16:00 Mechanical Ventilator 12/13/19 16:00 108 12/13/19 15:29 109 28 28 12/13/19 12:00 40 12/13/19 12:00 96 12/13/19 12:00 98.6 95 24 139/86 (103) 100 12/13/19 12:00 Mechanical Ventilator 12/13/19 11:00 98 25 28 12/13/19 08:00 Mechanical Ventilator 12/13/19 08:00 40 12/13/19 08:00 98.4 95 26 133/93 (106) 100 12/13/19 08:00 98 12/13/19 07:15 93 25 28 12/13/19 04:00 98.1 100 28 135/76 (95) 100 12/13/19 04:00 40 12/13/19 04:00 Mechanical Ventilator 12/13/19 04:00 93 12/13/19 03:29 91 29 28 12/13/19 00:00 40 12/13/19 00:00 Mechanical Ventilator 12/13/19 00:00 97.9 91 25 143/75 (97) 100 12/13/19 00:00 93 12/12/19 23:08 90 25 28 Intake and Output 12/12/19 12/13/19 19:00 07:00 Intake Total 1100 ml 1490 ml Output Total 600 ml 1200 ml Balance 500 ml 290 ml Intake Free Water 150 ml IV Total 1100 ml 1100 ml Tube Feeding 240 ml Output Urine Total 600 ml 1200 ml # Bowel Movements 100 Laboratory Tests 12/13/19 03:00: White Blood Count 10.5, Red Blood Count 3.08L, Hemoglobin 8.2L, Hematocrit 24.8L , Mean Corpuscular Volume 80, Mean Corpuscular Hemoglobin 26.7L, Mean Corpuscular Hemoglobin Concent 33.2, Red Cell Distribution Width 16.3H, Platelet Count 226, Mean Platelet Volume 6.8, Neutrophils (%) (Auto) 65.9, Lymphocytes (%) (Auto) 24.2, Monocytes (%) (Auto) 9.2, Eosinophils (%) (Auto) 0.2, Basophils (%) (Auto) 0.5, Sodium Level 140, Potassium Level 4.1, Chloride Level 111H, Carbon Dioxide Level 20L, Anion Gap 9, Blood Urea Nitrogen 4L, Creatinine 0.4L, Estimat Glomerular Filtration Rate > 60, Glucose Level 71L, Calcium Level 8.2L, Total Bilirubin 0.8, Aspartate Amino Transf (AST/SGOT) 44H, Alanine Aminotransferase (ALT/SGPT) 25, Alkaline Phosphatase 94, Total Protein 5.6L, Albumin 1.5L, Globulin 4.1, Albumin/Globulin Ratio 0.4L Height (Feet): 5 Height (Inches): 10.00 Weight (Pounds): 200 Objective General Appearance: WD/WN, lethargic, confused EENT: normal ENT inspection Neck: non-tender, normal alignment Cardiovascular: normal peripheral pulses, normal rate, regular rhythm Respiratory/Chest: chest wall non-tender, lungs clear, normal breath sounds Abdomen: normal bowel sounds, non tender, soft, no organomegaly Edema: no edema noted Arm (L), no edema noted Arm (R) Neurologic: disoriented, unresponsive Assessment/Plan Problem List: (1) Pneumonia ICD Codes: J18.9 - Pneumonia, unspecified organism SNOMED: 637004071 (2) Rapid atrial fibrillation ICD Codes: I48.91 - Unspecified atrial fibrillation SNOMED: 031278863 (3) Sepsis ICD Codes: A41.9 - Sepsis, unspecified organism SNOMED: 78281712 Status: stable Assessment/Plan: monitor bp wean as able iv abx follow up cultures transfuse as needed monitor for bleeding replace lytes PPI rx replace lytes HIDA scan CT abd guarded but improving message left with sister re: status and poc Efren Buck MD Dec 13, 2019 21:47
[2019-12-14] VITALS: BP 131/66
[2019-12-14] MEDS: NS w/KCl 20mEq 1000ml 1,000 ML IV SCH ×4 (01:12→21:40)
--- NOTE | 2019-12-14 02:47 | Cardiology Progress Note ---
Subjective DATE OF SERVICE: Dec 13, 2019 Had been on pressor support for hypotension; now tapered off. Low hemoglobin, K+, and Mg++ repleted as needed Objective Last 24 Hour Vital Signs Date Time Temp Pulse Resp B/P (MAP) Pulse Ox O2 Delivery O2 Flow Rate FiO2 12/14/19 00:00 98.2 88 20 131/66 (87) 100 12/14/19 00:00 Mechanical Ventilator 12/13/19 23:29 95 12/13/19 23:04 96 28 28 12/13/19 20:00 98.7 94 20 119/70 (86) 100 12/13/19 20:00 Mechanical Ventilator 12/13/19 20:00 40 12/13/19 19:28 97 24 28 12/13/19 19:02 89 12/13/19 16:00 40 12/13/19 16:00 98.2 89 23 132/78 (96) 100 12/13/19 16:00 Mechanical Ventilator 12/13/19 16:00 108 12/13/19 15:29 109 28 28 12/13/19 12:00 40 12/13/19 12:00 96 12/13/19 12:00 98.6 95 24 139/86 (103) 100 12/13/19 12:00 Mechanical Ventilator 12/13/19 11:00 98 25 28 12/13/19 08:00 Mechanical Ventilator 12/13/19 08:00 40 12/13/19 08:00 98.4 95 26 133/93 (106) 100 12/13/19 08:00 98 12/13/19 07:15 93 25 28 12/13/19 04:00 98.1 100 28 135/76 (95) 100 12/13/19 04:00 40 12/13/19 04:00 Mechanical Ventilator 12/13/19 04:00 93 12/13/19 03:29 91 29 28 ROS: unchanged from my note of 12/07/19. HEENT: Thin Trach secretions RHYTHM: Afib LUNGS: bilateral rhonchi CARDIAC: irregularly irregular ABDOMEN: non tender, soft, distended, G-Tube intact EXTREMITIES: trace edema, other - Neuro: comatose state Laboratory Tests Test 12/13/19 03:00 White Blood Count 10.5 K/UL (4.8-10.8) Red Blood Count 3.08 M/UL (4.70-6.10) L Hemoglobin 8.2 G/DL (14.2-18.0) L Hematocrit 24.8 % (42.0-52.0) L Mean Corpuscular Volume 80 FL (80-99) Mean Corpuscular Hemoglobin 26.7 PG (27.0-31.0) L Mean Corpuscular Hemoglobin Concent 33.2 G/DL (32.0-36.0) Red Cell Distribution Width 16.3 % (11.6-14.8) H Platelet Count 226 K/UL (150-450) Mean Platelet Volume 6.8 FL (6.5-10.1) Neutrophils (%) (Auto) 65.9 % (45.0-75.0) Lymphocytes (%) (Auto) 24.2 % (20.0-45.0) Monocytes (%) (Auto) 9.2 % (1.0-10.0) Eosinophils (%) (Auto) 0.2 % (0.0-3.0) Basophils (%) (Auto) 0.5 % (0.0-2.0) Sodium Level 140 MMOL/L (136-145) Potassium Level 4.1 MMOL/L (3.5-5.1) Chloride Level 111 MMOL/L (98-107) H Carbon Dioxide Level 20 MMOL/L (21-32) L Anion Gap 9 mmol/L (5-15) Blood Urea Nitrogen 4 mg/dL (7-18) L Creatinine 0.4 MG/DL (0.55-1.30) L Estimat Glomerular Filtration Rate > 60 mL/min (>60) Glucose Level 71 MG/DL (74-106) L Calcium Level 8.2 MG/DL (8.5-10.1) L Total Bilirubin 0.8 MG/DL (0.2-1.0) Aspartate Amino Transf (AST/SGOT) 44 U/L (15-37) H Alanine Aminotransferase (ALT/SGPT) 25 U/L (12-78) Alkaline Phosphatase 94 U/L (46-116) Total Protein 5.6 G/DL (6.4-8.2) L Albumin 1.5 G/DL (3.4-5.0) L Globulin 4.1 g/dL Albumin/Globulin Ratio 0.4 (1.0-2.7) L Assessment/Plan Assessment/Plan Sepsis with shock Respiratory failure Chronic vegetative state Anemia Hypokalemia - total body depl Hypomagnesemia - severe Lactic acidosis PAFib with RVR Abx Resp support IVF hydration Hold carvedilol and amlodipine until BP parameters warrent resumption. PRBC transfusion as needed. Replace IV Mg++ and K+ as needed Flaco Marques MD Dec 14, 2019 02:47
[2019-12-14 04:00] VITALS: BP 142/76
[2019-12-14 04:53] LABS: BASOPHILS % (AUTO) 0.7 % (0.0-2.0); EOSINOPHILS % (AUTO) 0.2 % (0.0-3.0); HEMOGLOBIN 8.3 G/DL (14.2-18.0); LYMPHOCYTES % (AUTO) 27.5 % (20.0-45.0); MEAN CORPUSCULAR VOLUME 80 FL (80-99); MONOCYTES % (AUTO) 8.9 % (1.0-10.0); NEUTROPHILS % (AUTO) 62.8 % (45.0-75.0); PLATELET COUNT 240 K/UL (150-450); RED BLOOD COUNT 3.11 M/UL (4.70-6.10); RED CELL DISTRIBUTION WIDTH 16.6 % (11.6-14.8); WHITE BLOOD COUNT 9.5 K/UL (4.8-10.8)
[2019-12-14 05:34] LABS: ALANINE AMINOTRANSFERASE 22 U/L (12-78); ALBUMIN 1.5 G/DL (3.4-5.0); ALBUMIN/GLOBULIN RATIO 0.4 (1.0-2.7); ALKALINE PHOSPHATASE 88 U/L (46-116); ANION GAP 10 mmol/L (5-15); ASPARTATE AMINO TRANSFERASE 50 U/L (15-37); BILIRUBIN,TOTAL 0.5 MG/DL (0.2-1.0); BLOOD UREA NITROGEN 4 mg/dL (7-18); CALCIUM 8.3 MG/DL (8.5-10.1); CARBON DIOXIDE 20 MMOL/L (21-32); CHLORIDE 112 MMOL/L (98-107); CREATININE 0.4 MG/DL (0.55-1.30); POTASSIUM 4.3 MMOL/L (3.5-5.1); SODIUM 142 MMOL/L (136-145)
[2019-12-14] MEDS: Meropenem 1gm in NS 55ml IVPB SCH ×3 (05:35→21:37)
[2019-12-14 08:00] VITALS: BP 127/77
[2019-12-14] MEDS ORDERED: Morphine Sulfate 2mg/ml Inj(IV/IM USE ONLY) IVP PRN (08:50)
[2019-12-14] MEDS: Zinc Sulfate 220mg GT SCH (08:55)
[2019-12-14] MEDS: Ascorbic Acid 500mg tab GT SCH ×2 (08:55→17:53)
[2019-12-14] MEDS: levETIRAcetam 500mg/5ml Liquid GT SCH ×2 (08:55→20:29)
[2019-12-14] MEDS: Heparin 5000 units/ml inj SUBQ SCH ×2 (08:59→20:32)
[2019-12-14] MEDS ORDERED: Tubing IV Secondary IV ONE (11:41)
[2019-12-14] MEDS ORDERED: NS 275ml ONE (11:41)
[2019-12-14 12:00] VITALS: BP 139/70
--- NOTE | 2019-12-14 12:16 | Surgery Progress Note ---
Surgery Progress Note Subjective Additional Comments colton cute events comfortable Objective Last 24 Hour Vital Signs Date Time Temp Pulse Resp B/P (MAP) Pulse Ox O2 Delivery O2 Flow Rate FiO2 12/14/19 11:06 88 20 28 12/14/19 08:00 98.2 94 22 127/77 (94) 100 12/14/19 08:00 40 12/14/19 08:00 Mechanical Ventilator 12/14/19 08:00 92 12/14/19 07:20 92 24 28 12/14/19 04:00 Mechanical Ventilator 12/14/19 04:00 98.8 97 16 142/76 (98) 100 12/14/19 04:00 40 12/14/19 03:30 91 12/14/19 03:22 99 25 28 12/14/19 00:00 98.2 88 20 131/66 (87) 100 12/14/19 00:00 Mechanical Ventilator 12/13/19 23:29 95 12/13/19 23:04 96 28 28 12/13/19 20:00 98.7 94 20 119/70 (86) 100 12/13/19 20:00 Mechanical Ventilator 12/13/19 20:00 40 12/13/19 19:28 97 24 28 12/13/19 19:02 89 12/13/19 16:00 40 12/13/19 16:00 98.2 89 23 132/78 (96) 100 12/13/19 16:00 Mechanical Ventilator 12/13/19 16:00 108 12/13/19 15:29 109 28 28 I&O Intake and Output 12/13/19 12/14/19 19:00 07:00 Intake Total 255 ml 1995 ml Output Total 1200 ml Balance 255 ml 795 ml Intake Free Water 115 ml 150 ml IV Total 100 ml 1445 ml Tube Feeding 40 ml 400 ml Output Urine Total 1200 ml # Bowel Movements 300 Dressing: saturated Cardiovascular: RSR Respiratory: decreased breath sounds Abdomen: soft, non-tender, present bowel sounds Extremities: no tenderness, no cyanosis Laboratory Tests Test 12/14/19 02:45 White Blood Count 9.5 K/UL (4.8-10.8) Red Blood Count 3.11 M/UL (4.70-6.10) L Hemoglobin 8.3 G/DL (14.2-18.0) L Hematocrit 25.0 % (42.0-52.0) L Mean Corpuscular Volume 80 FL (80-99) Mean Corpuscular Hemoglobin 26.8 PG (27.0-31.0) L Mean Corpuscular Hemoglobin Concent 33.3 G/DL (32.0-36.0) Red Cell Distribution Width 16.6 % (11.6-14.8) H Platelet Count 240 K/UL (150-450) Mean Platelet Volume 6.5 FL (6.5-10.1) Neutrophils (%) (Auto) 62.8 % (45.0-75.0) Lymphocytes (%) (Auto) 27.5 % (20.0-45.0) Monocytes (%) (Auto) 8.9 % (1.0-10.0) Eosinophils (%) (Auto) 0.2 % (0.0-3.0) Basophils (%) (Auto) 0.7 % (0.0-2.0) Sodium Level 142 MMOL/L (136-145) Potassium Level 4.3 MMOL/L (3.5-5.1) Chloride Level 112 MMOL/L (98-107) H Carbon Dioxide Level 20 MMOL/L (21-32) L Anion Gap 10 mmol/L (5-15) Blood Urea Nitrogen 4 mg/dL (7-18) L Creatinine 0.4 MG/DL (0.55-1.30) L Estimat Glomerular Filtration Rate > 60 mL/min (>60) Glucose Level 84 MG/DL (74-106) Calcium Level 8.3 MG/DL (8.5-10.1) L Total Bilirubin 0.5 MG/DL (0.2-1.0) Aspartate Amino Transf (AST/SGOT) 50 U/L (15-37) H Alanine Aminotransferase (ALT/SGPT) 22 U/L (12-78) Alkaline Phosphatase 88 U/L (46-116) Total Protein 5.1 G/DL (6.4-8.2) L Albumin 1.5 G/DL (3.4-5.0) L Globulin 3.6 g/dL Albumin/Globulin Ratio 0.4 (1.0-2.7) L Plan Problems: (1) Laceration of scalp Assessment & Plan: patient noted to have right occipital scalp laceration 5cm 1mm dehiscence. serous oozing. no pus at this time. --hold on leonardo or closure given secondary intention and age of wound leonardo noted to frontal right scalp leonardo removed dressings applied to wound will monitor no acute surgical intervention planned (2) Pneumonia (3) Rapid atrial fibrillation (4) Sepsis Assessment & Plan: leukocytosis anemia scalp lac with pus drainage prior now clear abd wound with leonardo in place pna micro noted on abx labs improving leonardo removed from scalp and abdomen wounds evaluated and care plan initiated will monitor thank you Kashif Villalta Dec 14, 2019 12:16
--- NOTE | 2019-12-14 13:38 | Infectious Diseases Prog Note ---
Assessment/Plan Assessment/Plan A; 1. Serratia sepsis, 2. E. coli urinary tract infection. 3. Seizures. 4. Respiratory failure, status post tracheostomy. 5. leukocytosis. 6. Septic shock. 7. Anemia 8. 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 Continue meropenem. 2. We will follow up HIDA scan Subjective ROS Limited/Unobtainable: Yes Constitutional: Denies: fever Allergies: Coded Allergies: No Known Allergies (Unverified , 12/07/19) Objective Last 24 Hour Vital Signs Date Time Temp Pulse Resp B/P (MAP) Pulse Ox O2 Delivery O2 Flow Rate FiO2 12/14/19 12:00 98.1 90 23 139/70 (93) 100 12/14/19 12:00 94 12/14/19 12:00 Mechanical Ventilator 12/14/19 12:00 40 12/14/19 11:06 88 20 28 12/14/19 08:00 98.2 94 22 127/77 (94) 100 12/14/19 08:00 40 12/14/19 08:00 Mechanical Ventilator 12/14/19 08:00 92 12/14/19 07:20 92 24 28 12/14/19 04:00 Mechanical Ventilator 12/14/19 04:00 98.8 97 16 142/76 (98) 100 12/14/19 04:00 40 12/14/19 03:30 91 12/14/19 03:22 99 25 28 12/14/19 00:00 98.2 88 20 131/66 (87) 100 12/14/19 00:00 Mechanical Ventilator 12/13/19 23:29 95 12/13/19 23:04 96 28 28 12/13/19 20:00 98.7 94 20 119/70 (86) 100 12/13/19 20:00 Mechanical Ventilator 12/13/19 20:00 40 12/13/19 19:28 97 24 28 12/13/19 19:02 89 12/13/19 16:00 40 12/13/19 16:00 98.2 89 23 132/78 (96) 100 12/13/19 16:00 Mechanical Ventilator 12/13/19 16:00 108 12/13/19 15:29 109 28 28 Height (Feet): 5 Height (Inches): 10.00 Weight (Pounds): 200 General Appearance: no acute distress HEENT: status post trach Respiratory/Chest: decreased breath sounds, other - on ventilator Cardiovascular: normal rate, other - R arm PICC line Abdomen: soft, non tender, other - GT feeding Extremities: other - edema of arms Skin: ulcers, other - Pressure ulcers Laboratory Tests Test 12/14/19 02:45 White Blood Count 9.5 K/UL (4.8-10.8) Red Blood Count 3.11 M/UL (4.70-6.10) L Hemoglobin 8.3 G/DL (14.2-18.0) L Hematocrit 25.0 % (42.0-52.0) L Mean Corpuscular Volume 80 FL (80-99) Mean Corpuscular Hemoglobin 26.8 PG (27.0-31.0) L Mean Corpuscular Hemoglobin Concent 33.3 G/DL (32.0-36.0) Red Cell Distribution Width 16.6 % (11.6-14.8) H Platelet Count 240 K/UL (150-450) Mean Platelet Volume 6.5 FL (6.5-10.1) Neutrophils (%) (Auto) 62.8 % (45.0-75.0) Lymphocytes (%) (Auto) 27.5 % (20.0-45.0) Monocytes (%) (Auto) 8.9 % (1.0-10.0) Eosinophils (%) (Auto) 0.2 % (0.0-3.0) Basophils (%) (Auto) 0.7 % (0.0-2.0) Sodium Level 142 MMOL/L (136-145) Potassium Level 4.3 MMOL/L (3.5-5.1) Chloride Level 112 MMOL/L (98-107) H Carbon Dioxide Level 20 MMOL/L (21-32) L Anion Gap 10 mmol/L (5-15) Blood Urea Nitrogen 4 mg/dL (7-18) L Creatinine 0.4 MG/DL (0.55-1.30) L Estimat Glomerular Filtration Rate > 60 mL/min (>60) Glucose Level 84 MG/DL (74-106) Calcium Level 8.3 MG/DL (8.5-10.1) L Total Bilirubin 0.5 MG/DL (0.2-1.0) Aspartate Amino Transf (AST/SGOT) 50 U/L (15-37) H Alanine Aminotransferase (ALT/SGPT) 22 U/L (12-78) Alkaline Phosphatase 88 U/L (46-116) Total Protein 5.1 G/DL (6.4-8.2) L Albumin 1.5 G/DL (3.4-5.0) L Globulin 3.6 g/dL Albumin/Globulin Ratio 0.4 (1.0-2.7) L Current Medications Medications (Trade) Dose Ordered Sig/Howard Route PRN Reason Start Time Stop Time Status Last Admin Dose Admin Acetaminophen (Tylenol) 650 mg Q6H PRN GT Mild Pain (Pain Scale 1-3) 12/07/19 18:45 01/06/20 18:44 12/07/19 21:39 Acetaminophen (Tylenol) 650 mg Q6H PRN GT Temp >100.5 12/07/19 19:15 01/06/20 19:14 12/08/19 17:13 Ascorbic Acid (Vitamin C) 500 mg TWICE A DAY GT 12/08/19 09:00 01/07/20 08:59 12/14/19 08:55 Bisacodyl (Dulcolax) 10 mg DAILYPRN PRN RECTAL Constipation 12/07/19 18:45 03/06/20 18:44 Chlorhexidine Gluconate (Ivanna-Hex 2%) 1 applic DAILY@2000 TOPIC 12/08/19 20:00 03/07/20 19:59 12/13/19 20:24 Diphenoxylate HCl/ Atropine (Lomotil) 2.5 mg Q4H PRN GT Diarrhea 12/11/19 07:15 01/10/20 07:14 Famotidine (Pepcid) 20 mg TWICE A DAY GT 12/07/19 18:45 03/06/20 18:44 12/14/19 08:55 Heparin Sodium (Porcine) (Heparin 5000 units/ml) 5,000 units EVERY 12 HOURS SUBQ 12/07/19 21:00 01/21/20 20:59 12/14/19 08:59 Iron Sucrose 100 mg/Sodium Chloride 60 ml @ 240 mls/hr BEDTIME IV 12/11/19 21:00 12/15/19 21:14 12/13/19 20:19 Levetiracetam (Keppra) 1,000 mg EVERY 12 HOURS GT 12/07/19 21:00 01/06/20 20:59 12/14/19 08:55 Meropenem 1 gm/ Sodium Chloride 55 ml @ 110 mls/hr Q8HR IVPB 12/13/19 14:00 12/18/19 13:59 12/14/19 05:35 Potassium Chloride/Sodium Chloride 1,000 ml @ 100 mls/hr Q10H IV 12/09/19 00:30 01/08/20 00:29 12/14/19 10:30 Zinc Sulfate (Zinc Sulfate) 220 mg DAILY GT 12/07/19 21:00 03/06/20 20:59 12/14/19 08:55 Liban Nice MD Dec 14, 2019 13:38
--- NOTE | 2019-12-14 14:41 | Diagnostic Imaging Report ---
Indications: Abnormal liver function tests Technique: IV administration 6.7 mCi 99 M technetium Choletec. Serial images obtained over the abdomen for one hour Comparison: No comparison sonograms. Reference made to abdominal ultrasound 12/08/2019 Findings: Prompt tracer uptake within the liver. Extrahepatic bile ducts are seen at 10 minutes. Excretion into the duodenum demonstrated at 10 minutes. Gallbladder visualized at 40 minutes. Impression: Negative. No evidence of cystic duct or common bile duct obstruction
--- NOTE | 2019-12-14 15:32 | General Progress Note ---
Subjective ROS Limited/Unobtainable: Yes Constitutional: Reports: malaise, weakness HEENT: Reports: no symptoms Cardiovascular: Reports: edema Respiratory: Reports: shortness of breath, sputum Gastrointestinal/Abdominal: Reports: difficulty swallowing Genitourinary: Reports: no symptoms Neurologic/Psychiatric: Reports: pre-existing deficit, seizure Endocrine: Reports: no symptoms Hematologic/Lymphatic: Reports: anemia Allergies: Coded Allergies: No Known Allergies (Unverified , 12/07/19) All Systems: reviewed and negative except above Subjective bp stable. remains on the vent. awake but confused. does not track or follow commands. no fevers or chills. Abd us noted. HIDA ordered. on multiple iv abx. Objective Last 24 Hour Vital Signs Date Time Temp Pulse Resp B/P (MAP) Pulse Ox O2 Delivery O2 Flow Rate FiO2 12/14/19 15:16 88 21 28 12/14/19 12:00 98.1 90 23 139/70 (93) 100 12/14/19 12:00 94 12/14/19 12:00 Mechanical Ventilator 12/14/19 12:00 40 12/14/19 11:06 88 20 28 12/14/19 08:00 98.2 94 22 127/77 (94) 100 12/14/19 08:00 40 12/14/19 08:00 Mechanical Ventilator 12/14/19 08:00 92 12/14/19 07:20 92 24 28 12/14/19 04:00 Mechanical Ventilator 12/14/19 04:00 98.8 97 16 142/76 (98) 100 12/14/19 04:00 40 12/14/19 03:30 91 12/14/19 03:22 99 25 28 12/14/19 00:00 98.2 88 20 131/66 (87) 100 12/14/19 00:00 Mechanical Ventilator 12/13/19 23:29 95 12/13/19 23:04 96 28 28 12/13/19 20:00 98.7 94 20 119/70 (86) 100 12/13/19 20:00 Mechanical Ventilator 12/13/19 20:00 40 12/13/19 19:28 97 24 28 12/13/19 19:02 89 12/13/19 16:00 40 12/13/19 16:00 98.2 89 23 132/78 (96) 100 12/13/19 16:00 Mechanical Ventilator 12/13/19 16:00 108 Intake and Output 12/13/19 12/14/19 19:00 07:00 Intake Total 255 ml 1995 ml Output Total 1200 ml Balance 255 ml 795 ml Intake Free Water 115 ml 150 ml IV Total 100 ml 1445 ml Tube Feeding 40 ml 400 ml Output Urine Total 1200 ml # Bowel Movements 300 Laboratory Tests 12/14/19 02:45: White Blood Count 9.5, Red Blood Count 3.11L, Hemoglobin 8.3L, Hematocrit 25.0L, Mean Corpuscular Volume 80, Mean Corpuscular Hemoglobin 26.8L, Mean Corpuscular Hemoglobin Concent 33.3, Red Cell Distribution Width 16.6H, Platelet Count 240, Mean Platelet Volume 6.5, Neutrophils (%) (Auto) 62.8, Lymphocytes (%) (Auto) 27.5, Monocytes (%) (Auto) 8.9, Eosinophils (%) (Auto) 0.2, Basophils (%) (Auto) 0.7, Sodium Level 142, Potassium Level 4.3, Chloride Level 112H, Carbon Dioxide Level 20L, Anion Gap 10, Blood Urea Nitrogen 4L, Creatinine 0.4L, Estimat Glomerular Filtration Rate > 60, Glucose Level 84, Calcium Level 8.3L, Total Bilirubin 0.5, Aspartate Amino Transf (AST/SGOT) 50H, Alanine Aminotransferase (ALT/SGPT) 22, Alkaline Phosphatase 88, Total Protein 5.1L, Albumin 1.5L, Globulin 3.6, Albumin/Globulin Ratio 0.4L Height (Feet): 5 Height (Inches): 10.00 Weight (Pounds): 200 Objective General Appearance: WD/WN, lethargic, confused EENT: normal ENT inspection Neck: non-tender, normal alignment Cardiovascular: normal peripheral pulses, normal rate, regular rhythm Respiratory/Chest: chest wall non-tender, lungs clear, normal breath sounds Abdomen: normal bowel sounds, non tender, soft, no organomegaly Edema: generalized edema Neurologic: disoriented, unresponsive Assessment/Plan Problem List: (1) Pneumonia ICD Codes: J18.9 - Pneumonia, unspecified organism SNOMED: 840823199 (2) Rapid atrial fibrillation ICD Codes: I48.91 - Unspecified atrial fibrillation SNOMED: 093166113 (3) Sepsis ICD Codes: A41.9 - Sepsis, unspecified organism SNOMED: 65426353 Status: stable Assessment/Plan: monitor bp wean as able iv abx follow up cultures transfuse as needed monitor for bleeding replace lytes PPI rx replace lytes HIDA scan CT abd guarded but improving message left with sister re: status and poc Efren Buck MD Dec 14, 2019 15:32
[2019-12-14 16:00] VITALS: BP 127/70
[2019-12-14 20:00] VITALS: BP 118/61
[2019-12-14] MEDS: Dyna-Hex 2% Top Sol 2oz TOPIC SCH (20:29)
[2019-12-14] MEDS: Iron Sucrose 100 MG in NS 55 ML IV SCH (20:29)
--- NOTE | 2019-12-14 23:23 | Cardiology Progress Note ---
Subjective DATE OF SERVICE: Dec 14, 2019 Remains off pressors. Low hemoglobin, K+, and Mg++ repleted as needed HIDA scan negative Objective Last 24 Hour Vital Signs Date Time Temp Pulse Resp B/P (MAP) Pulse Ox O2 Delivery O2 Flow Rate FiO2 12/14/19 20:00 40 12/14/19 20:00 Mechanical Ventilator 12/14/19 20:00 98.2 96 21 118/61 (80) 100 12/14/19 19:50 104 21 28 12/14/19 19:43 105 12/14/19 16:00 40 12/14/19 16:00 98.1 92 22 127/70 (89) 100 12/14/19 16:00 Mechanical Ventilator 12/14/19 16:00 86 12/14/19 15:16 88 21 28 12/14/19 12:00 98.1 90 23 139/70 (93) 100 12/14/19 12:00 94 12/14/19 12:00 Mechanical Ventilator 12/14/19 12:00 40 12/14/19 11:06 88 20 28 12/14/19 08:00 98.2 94 22 127/77 (94) 100 12/14/19 08:00 40 12/14/19 08:00 Mechanical Ventilator 12/14/19 08:00 92 12/14/19 07:20 92 24 28 12/14/19 04:00 Mechanical Ventilator 12/14/19 04:00 98.8 97 16 142/76 (98) 100 12/14/19 04:00 40 12/14/19 03:30 91 12/14/19 03:22 99 25 28 12/14/19 00:00 98.2 88 20 131/66 (87) 100 12/14/19 00:00 Mechanical Ventilator 12/13/19 23:29 95 ROS: unchanged from my note of 12/07/19. HEENT: Thin Trach secretions RHYTHM: Afib LUNGS: bilateral rhonchi CARDIAC: irregularly irregular ABDOMEN: non tender, soft, distended, G-Tube intact EXTREMITIES: trace edema, other - Neuro: comatose state Laboratory Tests Test 12/14/19 02:45 White Blood Count 9.5 K/UL (4.8-10.8) Red Blood Count 3.11 M/UL (4.70-6.10) L Hemoglobin 8.3 G/DL (14.2-18.0) L Hematocrit 25.0 % (42.0-52.0) L Mean Corpuscular Volume 80 FL (80-99) Mean Corpuscular Hemoglobin 26.8 PG (27.0-31.0) L Mean Corpuscular Hemoglobin Concent 33.3 G/DL (32.0-36.0) Red Cell Distribution Width 16.6 % (11.6-14.8) H Platelet Count 240 K/UL (150-450) Mean Platelet Volume 6.5 FL (6.5-10.1) Neutrophils (%) (Auto) 62.8 % (45.0-75.0) Lymphocytes (%) (Auto) 27.5 % (20.0-45.0) Monocytes (%) (Auto) 8.9 % (1.0-10.0) Eosinophils (%) (Auto) 0.2 % (0.0-3.0) Basophils (%) (Auto) 0.7 % (0.0-2.0) Sodium Level 142 MMOL/L (136-145) Potassium Level 4.3 MMOL/L (3.5-5.1) Chloride Level 112 MMOL/L (98-107) H Carbon Dioxide Level 20 MMOL/L (21-32) L Anion Gap 10 mmol/L (5-15) Blood Urea Nitrogen 4 mg/dL (7-18) L Creatinine 0.4 MG/DL (0.55-1.30) L Estimat Glomerular Filtration Rate > 60 mL/min (>60) Glucose Level 84 MG/DL (74-106) Calcium Level 8.3 MG/DL (8.5-10.1) L Total Bilirubin 0.5 MG/DL (0.2-1.0) Aspartate Amino Transf (AST/SGOT) 50 U/L (15-37) H Alanine Aminotransferase (ALT/SGPT) 22 U/L (12-78) Alkaline Phosphatase 88 U/L (46-116) Total Protein 5.1 G/DL (6.4-8.2) L Albumin 1.5 G/DL (3.4-5.0) L Globulin 3.6 g/dL Albumin/Globulin Ratio 0.4 (1.0-2.7) L Assessment/Plan Assessment/Plan Sepsis with shock Respiratory failure Chronic vegetative state Anemia Hypokalemia - total body depl Hypomagnesemia - severe Lactic acidosis PAFib with RVR Abx Resp support IVF hydration discont'd; reassess for diuretics on a daily basis. Hold amlodipine until BP parameters warrent resumption. Will resume carvedilol now. PRBC transfusion as needed. Replace IV Mg++ and K+ as needed Flaco Marques MD Dec 14, 2019 23:23
[2019-12-15] VITALS: BP 115/61
[2019-12-15 04:00] VITALS: BP 137/68
[2019-12-15] MEDS: Meropenem 1gm in NS 55ml IVPB SCH ×3 (05:00→22:32)
[2019-12-15 05:06] LABS: ANION GAP 11 mmol/L (5-15); BLOOD UREA NITROGEN 5 mg/dL (7-18); CARBON DIOXIDE 24 MMOL/L (21-32); CHLORIDE 111 MMOL/L (98-107); CREATININE 0.4 MG/DL (0.55-1.30); POTASSIUM 3.8 MMOL/L (3.5-5.1); SODIUM 146 MMOL/L (136-145)
[2019-12-15 08:00] VITALS: BP 147/83
[2019-12-15] MEDS: Zinc Sulfate 220mg GT SCH (08:02)
[2019-12-15] MEDS: Ascorbic Acid 500mg tab GT SCH ×2 (08:03→18:17)
[2019-12-15] MEDS: Lomotil 2.5mg tab GT PRN (08:04)
[2019-12-15] MEDS: levETIRAcetam 500mg/5ml Liquid GT SCH ×2 (08:05→20:13)
[2019-12-15] MEDS: Heparin 5000 units/ml inj SUBQ SCH ×2 (08:07→20:15)
[2019-12-15] MEDS: Carvedilol 12.5mg tab GT SCH ×2 (08:09→20:12)
--- NOTE | 2019-12-15 11:21 | Infectious Diseases Prog Note ---
Assessment/Plan Assessment/Plan antibiotics : meropenem A 1. serratia sepsis s.p catheter removal 2. e.coli UTI 3. shock resolved 4, leucocytosis resolved 5. respiratory failure s/p tracheostomy 6. seizures P 1. continue meropenem 1 more day 2. will follow up cultures Subjective ROS Limited/Unobtainable: Yes Allergies: Coded Allergies: No Known Allergies (Unverified , 12/07/19) Objective Last 24 Hour Vital Signs Date Time Temp Pulse Resp B/P (MAP) Pulse Ox O2 Delivery O2 Flow Rate FiO2 12/15/19 08:09 106 147/83 12/15/19 08:00 Mechanical Ventilator 12/15/19 08:00 102 12/15/19 08:00 40 12/15/19 08:00 98.2 100 20 147/83 (104) 100 12/15/19 07:10 93 20 28 12/15/19 04:00 40 12/15/19 04:00 Mechanical Ventilator 12/15/19 04:00 98.1 92 21 137/68 (91) 100 12/15/19 03:28 92 12/15/19 02:55 97 25 28 12/15/19 00:00 93 12/15/19 00:00 98.4 92 20 115/61 (79) 100 12/15/19 00:00 Mechanical Ventilator 12/14/19 23:30 94 24 28 12/14/19 20:00 40 12/14/19 20:00 Mechanical Ventilator 12/14/19 20:00 98.2 96 21 118/61 (80) 100 12/14/19 19:50 104 21 28 12/14/19 19:43 105 12/14/19 16:00 40 12/14/19 16:00 98.1 92 22 127/70 (89) 100 12/14/19 16:00 Mechanical Ventilator 12/14/19 16:00 86 12/14/19 15:16 88 21 28 12/14/19 12:00 98.1 90 23 139/70 (93) 100 12/14/19 12:00 94 12/14/19 12:00 Mechanical Ventilator 12/14/19 12:00 40 Height (Feet): 5 Height (Inches): 10.00 Weight (Pounds): 200 HEENT: status post trach Respiratory/Chest: lungs clear Cardiovascular: normal rate, regular rhythm, no gallop/murmur Abdomen: soft, non tender, other - GT Extremities: other - + edema, right arm PICC Laboratory Tests Test 12/15/19 02:40 Sodium Level 146 MMOL/L (136-145) H Potassium Level 3.8 MMOL/L (3.5-5.1) Chloride Level 111 MMOL/L (98-107) H Carbon Dioxide Level 24 MMOL/L (21-32) Anion Gap 11 mmol/L (5-15) Blood Urea Nitrogen 5 mg/dL (7-18) L Creatinine 0.4 MG/DL (0.55-1.30) L Estimat Glomerular Filtration Rate > 60 mL/min (>60) Glucose Level 84 MG/DL (74-106) Calcium Level 8.0 MG/DL (8.5-10.1) L Magnesium Level 1.2 MG/DL (1.8-2.4) L Current Medications Medications (Trade) Dose Ordered Sig/Howard Route PRN Reason Start Time Stop Time Status Last Admin Dose Admin Acetaminophen (Tylenol) 650 mg Q6H PRN GT Mild Pain (Pain Scale 1-3) 12/07/19 18:45 01/06/20 18:44 12/07/19 21:39 Acetaminophen (Tylenol) 650 mg Q6H PRN GT Temp >100.5 12/07/19 19:15 01/06/20 19:14 12/08/19 17:13 Ascorbic Acid (Vitamin C) 500 mg TWICE A DAY GT 12/08/19 09:00 01/07/20 08:59 12/15/19 08:03 Bisacodyl (Dulcolax) 10 mg DAILYPRN PRN RECTAL Constipation 12/07/19 18:45 03/06/20 18:44 Carvedilol (Coreg) 12.5 mg EVERY 12 HOURS GT 12/15/19 09:00 01/14/20 08:59 12/15/19 08:09 Chlorhexidine Gluconate (Ivanna-Hex 2%) 1 applic DAILY@1999 TOPIC 12/08/19 20:00 03/07/20 19:59 12/14/19 20:29 Diphenoxylate HCl/ Atropine (Lomotil) 2.5 mg Q4H PRN GT Diarrhea 12/11/19 07:15 01/10/20 07:14 10/2/20 08:04 Famotidine (Pepcid) 20 mg TWICE A DAY GT 12/07/19 18:45 03/06/20 18:44 12/15/19 08:04 Heparin Sodium (Porcine) (Heparin 5000 units/ml) 5,000 units EVERY 12 HOURS SUBQ 12/07/19 21:00 01/21/20 20:59 12/15/19 08:07 Iron Sucrose 100 mg/Sodium Chloride 60 ml @ 240 mls/hr BEDTIME IV 12/11/19 21:00 12/15/19 21:14 12/14/19 20:29 Levetiracetam (Keppra) 1,000 mg EVERY 12 HOURS GT 12/07/19 21:00 01/06/20 20:59 12/15/19 08:05 Meropenem 1 gm/ Sodium Chloride 55 ml @ 110 mls/hr Q8HR IVPB 12/13/19 14:00 12/18/19 13:59 12/15/19 05:00 Zinc Sulfate (Zinc Sulfate) 220 mg DAILY GT 12/07/19 21:00 03/06/20 20:59 12/15/19 08:02 Jeannine Corral MD Dec 15, 2019 11:21
--- NOTE | 2019-12-15 11:36 | Surgery Progress Note ---
Surgery Progress Note Subjective Additional Comments lft's nml wbc improved hida noted and negative patient head mainly on left lateral causing trach pressure. small skin breakdown noted around trach. dressings applied Objective Last 24 Hour Vital Signs Date Time Temp Pulse Resp B/P (MAP) Pulse Ox O2 Delivery O2 Flow Rate FiO2 12/15/19 08:09 106 147/83 12/15/19 08:00 Mechanical Ventilator 12/15/19 08:00 102 12/15/19 08:00 40 12/15/19 08:00 98.2 100 20 147/83 (104) 100 12/15/19 07:10 93 20 28 12/15/19 04:00 40 12/15/19 04:00 Mechanical Ventilator 12/15/19 04:00 98.1 92 21 137/68 (91) 100 12/15/19 03:28 92 12/15/19 02:55 97 25 28 12/15/19 00:00 93 12/15/19 00:00 98.4 92 20 115/61 (79) 100 12/15/19 00:00 Mechanical Ventilator 12/14/19 23:30 94 24 28 12/14/19 20:00 40 12/14/19 20:00 Mechanical Ventilator 12/14/19 20:00 98.2 96 21 118/61 (80) 100 12/14/19 19:50 104 21 28 12/14/19 19:43 105 12/14/19 16:00 40 12/14/19 16:00 98.1 92 22 127/70 (89) 100 12/14/19 16:00 Mechanical Ventilator 12/14/19 16:00 86 12/14/19 15:16 88 21 28 12/14/19 12:00 98.1 90 23 139/70 (93) 100 12/14/19 12:00 94 12/14/19 12:00 Mechanical Ventilator 12/14/19 12:00 40 I&O Intake and Output 12/14/19 12/15/19 19:00 07:00 Intake Total 220 ml 1169 ml Output Total 2100 ml Balance 220 ml -931 ml Intake Free Water 80 ml 75 ml IV Total 100 ml 634 ml Tube Feeding 40 ml 460 ml Output Urine Total 2100 ml # Bowel Movements 300 400 Dressing: saturated Cardiovascular: RSR Respiratory: decreased breath sounds Abdomen: soft, non-tender, present bowel sounds Extremities: no edema, no tenderness, no cyanosis Laboratory Tests Test 12/15/19 02:40 Sodium Level 146 MMOL/L (136-145) H Potassium Level 3.8 MMOL/L (3.5-5.1) Chloride Level 111 MMOL/L (98-107) H Carbon Dioxide Level 24 MMOL/L (21-32) Anion Gap 11 mmol/L (5-15) Blood Urea Nitrogen 5 mg/dL (7-18) L Creatinine 0.4 MG/DL (0.55-1.30) L Estimat Glomerular Filtration Rate > 60 mL/min (>60) Glucose Level 84 MG/DL (74-106) Calcium Level 8.0 MG/DL (8.5-10.1) L Magnesium Level 1.2 MG/DL (1.8-2.4) L Plan Problems: (1) Laceration of scalp Assessment & Plan: patient noted to have right occipital scalp laceration 5cm 1mm dehiscence. serous oozing. no pus at this time. --hold on leonardo or closure given secondary intention and age of wound leonardo noted to frontal right scalp leonardo removed dressings applied to wound will monitor no acute surgical intervention planned (2) Pneumonia (3) Rapid atrial fibrillation (4) Sepsis Assessment & Plan: leukocytosis anemia scalp lac with pus drainage prior now clear abd wound with leonardo in place pna micro noted on abx labs improving leonardo removed from scalp and abdomen wounds evaluated and care plan initiated lft's nml wbc improved hida noted and negative patient head mainly on left lateral causing trach pressure. small skin breakdown noted around trach. dressings applied will monitor thank you Kashif Villalta Dec 15, 2019 11:35
[2019-12-15 12:00] VITALS: BP 119/69
[2019-12-15 16:00] VITALS: BP 120/65
[2019-12-15 20:00] VITALS: BP 119/74
[2019-12-15] MEDS: Iron Sucrose 100 MG in NS 55 ML IV SCH (20:16)
[2019-12-15] MEDS: Dyna-Hex 2% Top Sol 2oz TOPIC SCH (20:17)
[2019-12-15] MEDS ORDERED: NS 275ml ONE (22:32)
[2019-12-16] VITALS: BP 129/69
--- NOTE | 2019-12-16 01:29 | Cardiology Progress Note ---
Subjective DATE OF SERVICE: Dec 15, 2019 Remains off pressors. Low Mg++ again; Na+ levels increasing HIDA scan negative Objective Last 24 Hour Vital Signs Date Time Temp Pulse Resp B/P (MAP) Pulse Ox O2 Delivery O2 Flow Rate FiO2 12/16/19 00:00 Mechanical Ventilator 12/16/19 00:00 76 12/16/19 00:00 98.2 86 20 129/69 (89) 98 12/15/19 23:54 88 20 28 12/15/19 20:12 85 125/65 12/15/19 20:00 40 12/15/19 20:00 Mechanical Ventilator 12/15/19 20:00 94 12/15/19 20:00 96.8 96 20 119/74 (89) 100 12/15/19 19:48 88 20 28 12/15/19 16:00 98.8 99 23 120/65 (83) 100 12/15/19 16:00 40 12/15/19 16:00 Mechanical Ventilator 12/15/19 16:00 80 12/15/19 14:50 95 25 28 12/15/19 12:00 98.6 90 20 119/69 (86) 98 12/15/19 12:00 40 12/15/19 12:00 Mechanical Ventilator 12/15/19 12:00 94 12/15/19 11:00 90 20 28 12/15/19 08:09 106 147/83 12/15/19 08:00 Mechanical Ventilator 12/15/19 08:00 102 12/15/19 08:00 40 12/15/19 08:00 98.2 100 20 147/83 (104) 100 12/15/19 07:10 93 20 28 12/15/19 04:00 40 12/15/19 04:00 Mechanical Ventilator 12/15/19 04:00 98.1 92 21 137/68 (91) 100 12/15/19 03:28 92 12/15/19 02:55 97 25 28 ROS: unchanged from my note of 12/07/19. HEENT: Thin Trach secretions RHYTHM: Afib LUNGS: bilateral rhonchi CARDIAC: irregularly irregular ABDOMEN: non tender, soft, distended, G-Tube intact EXTREMITIES: trace edema, other - Neuro: comatose state Laboratory Tests Test 12/15/19 02:40 Sodium Level 146 MMOL/L (136-145) H Potassium Level 3.8 MMOL/L (3.5-5.1) Chloride Level 111 MMOL/L (98-107) H Carbon Dioxide Level 24 MMOL/L (21-32) Anion Gap 11 mmol/L (5-15) Blood Urea Nitrogen 5 mg/dL (7-18) L Creatinine 0.4 MG/DL (0.55-1.30) L Estimat Glomerular Filtration Rate > 60 mL/min (>60) Glucose Level 84 MG/DL (74-106) Calcium Level 8.0 MG/DL (8.5-10.1) L Magnesium Level 1.2 MG/DL (1.8-2.4) L Assessment/Plan Assessment/Plan Sepsis with shock Respiratory failure Chronic vegetative state Anemia Hypokalemia - total body depl Hypomagnesemia - severe Lactic acidosis PAFib with RVR Abx Resp support Add'l free water by IV route Hold amlodipine until BP parameters warrent resumption. Will continue carvedilol now. PRBC transfusion as needed. Replace IV Mg++ and K+ again Flaco Marques MD Dec 16, 2019 01:29
[2019-12-16 04:00] VITALS: BP 142/74
[2019-12-16] MEDS: Meropenem 1gm in NS 55ml IVPB SCH ×3 (05:03→21:53)
[2019-12-16 08:00] VITALS: BP 142/78
--- NOTE | 2019-12-16 09:09 | Surgery Progress Note ---
Surgery Progress Note Subjective Symptoms: tolerating diet, passing flatus, BM Objective Last 24 Hour Vital Signs Date Time Temp Pulse Resp B/P (MAP) Pulse Ox O2 Delivery O2 Flow Rate FiO2 12/16/19 07:05 87 20 28 12/16/19 04:00 40 12/16/19 04:00 Mechanical Ventilator 12/16/19 04:00 90 12/16/19 04:00 98.4 85 20 142/74 (96) 99 12/16/19 03:22 85 20 28 12/16/19 00:00 Mechanical Ventilator 12/16/19 00:00 76 12/16/19 00:00 98.2 86 20 129/69 (89) 98 12/15/19 23:54 88 20 28 12/15/19 20:12 85 125/65 12/15/19 20:00 40 12/15/19 20:00 Mechanical Ventilator 12/15/19 20:00 94 12/15/19 20:00 96.8 96 20 119/74 (89) 100 12/15/19 19:48 88 20 28 12/15/19 16:00 98.8 99 23 120/65 (83) 100 12/15/19 16:00 40 12/15/19 16:00 Mechanical Ventilator 12/15/19 16:00 80 12/15/19 14:50 95 25 28 12/15/19 12:00 98.6 90 20 119/69 (86) 98 12/15/19 12:00 40 12/15/19 12:00 Mechanical Ventilator 12/15/19 12:00 94 12/15/19 11:00 90 20 28 I&O Intake and Output 12/15/19 12/16/19 19:00 07:00 Intake Total 720 ml 865 ml Output Total 4950 ml 550 ml Balance -4230 ml 315 ml Intake Free Water 200 ml 50 ml IV Total 595 ml Tube Feeding 280 ml 220 ml Other 240 ml Output Urine Total 4900 ml 550 ml Stool Total 50 ml # Bowel Movements 300 110 Dressing: saturated Wound: clean, intact Cardiovascular: RSR Respiratory: decreased breath sounds Abdomen: non-tender, present bowel sounds Extremities: no edema, no tenderness, no cyanosis Plan Problems: (1) Laceration of scalp Assessment & Plan: patient noted to have right occipital scalp laceration 5cm 1mm dehiscence. serous oozing. no pus at this time. --hold on leonardo or closure given secondary intention and age of wound leonardo noted to frontal right scalp leonardo removed dressings applied to wound will monitor no acute surgical intervention planned (2) Pneumonia (3) Rapid atrial fibrillation (4) Sepsis Assessment & Plan: leukocytosis anemia scalp lac with pus drainage prior now clear abd wound with leonardo in place pna micro noted on abx labs improving leonardo removed from scalp and abdomen wounds evaluated and care plan initiated lft's nml wbc improved hida noted and negative patient head mainly on left lateral causing trach pressure. small skin breakdown noted around trach. dressings applied will monitor thank you Kashif Villalta Dec 16, 2019 09:09
[2019-12-16] MEDS: Ascorbic Acid 500mg tab GT SCH ×2 (09:21→17:56)
[2019-12-16] MEDS: Carvedilol 12.5mg tab GT SCH ×2 (09:21→21:56)
[2019-12-16] MEDS: levETIRAcetam 500mg/5ml Liquid GT SCH ×2 (09:21→21:56)
[2019-12-16] MEDS: Zinc Sulfate 220mg GT SCH (09:21)
[2019-12-16] MEDS: Heparin 5000 units/ml inj SUBQ SCH ×2 (09:23→21:57)
[2019-12-16 12:00] VITALS: BP 135/75
[2019-12-16] MEDS ORDERED: Tubing IV Secondary IV ONE (12:54)
[2019-12-16] MEDS ORDERED: NS 275ml ONE (12:54)
--- NOTE | 2019-12-16 13:19 | General Progress Note ---
Subjective Allergies: Coded Allergies: No Known Allergies (Unverified , 12/07/19) Subjective bp stable. remains on the vent. awake but confused. does not track or follow commands. no fevers or chills. Abd us noted. HIDA ordered. on multiple iv abx. Objective Last 24 Hour Vital Signs Date Time Temp Pulse Resp B/P (MAP) Pulse Ox O2 Delivery O2 Flow Rate FiO2 12/16/19 11:10 91 20 28 12/16/19 09:21 87 142/74 12/16/19 09:00 40 12/16/19 08:00 99.5 87 20 142/78 (99) 100 12/16/19 08:00 Mechanical Ventilator 12/16/19 08:00 89 12/16/19 07:05 87 20 28 12/16/19 04:00 40 12/16/19 04:00 Mechanical Ventilator 12/16/19 04:00 90 12/16/19 04:00 98.4 85 20 142/74 (96) 99 12/16/19 03:22 85 20 28 12/16/19 00:00 Mechanical Ventilator 12/16/19 00:00 76 12/16/19 00:00 98.2 86 20 129/69 (89) 98 12/15/19 23:54 88 20 28 12/15/19 20:12 85 125/65 12/15/19 20:00 40 12/15/19 20:00 Mechanical Ventilator 12/15/19 20:00 94 12/15/19 20:00 96.8 96 20 119/74 (89) 100 12/15/19 19:48 88 20 28 12/15/19 16:00 98.8 99 23 120/65 (83) 100 12/15/19 16:00 40 12/15/19 16:00 Mechanical Ventilator 12/15/19 16:00 80 12/15/19 14:50 95 25 28 Intake and Output 12/15/19 12/16/19 19:00 07:00 Intake Total 720 ml 865 ml Output Total 4950 ml 550 ml Balance -4230 ml 315 ml Intake Free Water 200 ml 50 ml IV Total 595 ml Tube Feeding 280 ml 220 ml Other 240 ml Output Urine Total 4900 ml 550 ml Stool Total 50 ml # Bowel Movements 300 110 Height (Feet): 5 Height (Inches): 10.00 Weight (Pounds): 200 Objective General Appearance: WD/WN, lethargic, confused EENT: normal ENT inspection Neck: non-tender, normal alignment Cardiovascular: normal peripheral pulses, normal rate, regular rhythm Respiratory/Chest: chest wall non-tender, lungs clear, normal breath sounds Abdomen: normal bowel sounds, non tender, soft, no organomegaly Edema: generalized edema Neurologic: disoriented, unresponsive Assessment/Plan Problem List: (1) Pneumonia ICD Codes: J18.9 - Pneumonia, unspecified organism SNOMED: 715184357 (2) Rapid atrial fibrillation ICD Codes: I48.91 - Unspecified atrial fibrillation SNOMED: 201348684 (3) Sepsis ICD Codes: A41.9 - Sepsis, unspecified organism SNOMED: 63990584 Status: stable Assessment/Plan: monitor bp wean as able iv abx- last day of abx today follow up cultures transfuse as needed monitor for bleeding replace lytes- labs pending for today PPI rx replace lytes guarded but improving message left with sister re: status and poc Efren Buck MD Dec 16, 2019 13:19
[2019-12-16] MEDS: Acetaminophen 650mg/20.3ml GT PRN (15:47)
[2019-12-16 16:00] VITALS: BP 128/68
[2019-12-16 16:05] LABS: EOSINOPHILS % (AUTO) 0.2 % (0.0-3.0); HEMATOCRIT 26.1 % (42.0-52.0); HEMOGLOBIN 8.2 G/DL (14.2-18.0); LYMPHOCYTES % (AUTO) 27.5 % (20.0-45.0); MEAN CORPUSCULAR VOLUME 85 FL (80-99); MONOCYTES % (AUTO) 5.6 % (1.0-10.0); NEUTROPHILS % (AUTO) 65.7 % (45.0-75.0); PLATELET COUNT 255 K/UL (150-450); RED BLOOD COUNT 3.08 M/UL (4.70-6.10); RED CELL DISTRIBUTION WIDTH 18.5 % (11.6-14.8); WHITE BLOOD COUNT 12.7 K/UL (4.8-10.8)
[2019-12-16 16:25] LABS: ALANINE AMINOTRANSFERASE 17 U/L (12-78); ALBUMIN 1.6 G/DL (3.4-5.0); ALBUMIN/GLOBULIN RATIO 0.4 (1.0-2.7); ALKALINE PHOSPHATASE 76 U/L (46-116); ANION GAP 8 mmol/L (5-15); ASPARTATE AMINO TRANSFERASE 37 U/L (15-37); BILIRUBIN,TOTAL 0.5 MG/DL (0.2-1.0); BLOOD UREA NITROGEN 5 mg/dL (7-18); CARBON DIOXIDE 26 MMOL/L (21-32); CHLORIDE 108 MMOL/L (98-107); CREATININE 0.4 MG/DL (0.55-1.30); POTASSIUM 3.6 MMOL/L (3.5-5.1); SODIUM 141 MMOL/L (136-145)
[2019-12-16 20:00] VITALS: BP 110/65
[2019-12-16] MEDS: Dyna-Hex 2% Top Sol 2oz TOPIC SCH (20:01)
[2019-12-17] VITALS: BP 122/72
--- NOTE | 2019-12-17 01:09 | Cardiology Progress Note ---
Subjective DATE OF SERVICE: Dec 16, 2019 Remains off pressors. Low Mg++ yesterday; Na+ levels now normalized. HIDA scan negative Objective Last 24 Hour Vital Signs Date Time Temp Pulse Resp B/P (MAP) Pulse Ox O2 Delivery O2 Flow Rate FiO2 12/16/19 22:49 83 21 28 12/16/19 21:56 82 110/62 12/16/19 20:16 82 12/16/19 20:07 Mechanical Ventilator 12/16/19 20:00 98.2 82 20 110/65 (80) 97 12/16/19 20:00 40 12/16/19 18:47 89 22 28 12/16/19 17:29 97.7 12/16/19 16:00 100.8 93 20 128/68 (88) 100 12/16/19 16:00 81 12/16/19 15:38 Mechanical Ventilator 12/16/19 15:00 94 20 28 12/16/19 12:00 98.4 92 20 135/75 (95) 100 12/16/19 12:00 40 12/16/19 12:00 90 12/16/19 12:00 Mechanical Ventilator 12/16/19 11:10 91 20 28 12/16/19 09:21 87 142/74 12/16/19 08:00 99.5 87 20 142/78 (99) 100 12/16/19 08:00 40 12/16/19 08:00 Mechanical Ventilator 12/16/19 08:00 89 12/16/19 07:05 87 20 28 12/16/19 04:00 40 12/16/19 04:00 Mechanical Ventilator 12/16/19 04:00 90 12/16/19 04:00 98.4 85 20 142/74 (96) 99 12/16/19 03:22 85 20 28 ROS: unchanged from my note of 12/07/19. HEENT: Thin Trach secretions RHYTHM: Afib LUNGS: bilateral rhonchi CARDIAC: irregularly irregular ABDOMEN: non tender, soft, distended, G-Tube intact EXTREMITIES: trace edema, other - Neuro: comatose state Laboratory Tests Test 12/16/19 15:50 White Blood Count 12.7 K/UL (4.8-10.8) H Red Blood Count 3.08 M/UL (4.70-6.10) L Hemoglobin 8.2 G/DL (14.2-18.0) L Hematocrit 26.1 % (42.0-52.0) L Mean Corpuscular Volume 85 FL (80-99) Mean Corpuscular Hemoglobin 26.6 PG (27.0-31.0) L Mean Corpuscular Hemoglobin Concent 31.5 G/DL (32.0-36.0) L Red Cell Distribution Width 18.5 % (11.6-14.8) H Platelet Count 255 K/UL (150-450) Mean Platelet Volume 7.6 FL (6.5-10.1) Neutrophils (%) (Auto) 65.7 % (45.0-75.0) Lymphocytes (%) (Auto) 27.5 % (20.0-45.0) Monocytes (%) (Auto) 5.6 % (1.0-10.0) Eosinophils (%) (Auto) 0.2 % (0.0-3.0) Basophils (%) (Auto) 1.0 % (0.0-2.0) Sodium Level 141 MMOL/L (136-145) Potassium Level 3.6 MMOL/L (3.5-5.1) Chloride Level 108 MMOL/L (98-107) H Carbon Dioxide Level 26 MMOL/L (21-32) Anion Gap 8 mmol/L (5-15) Blood Urea Nitrogen 5 mg/dL (7-18) L Creatinine 0.4 MG/DL (0.55-1.30) L Estimat Glomerular Filtration Rate > 60 mL/min (>60) Glucose Level 107 MG/DL (74-106) H Calcium Level 8.0 MG/DL (8.5-10.1) L Total Bilirubin 0.5 MG/DL (0.2-1.0) Aspartate Amino Transf (AST/SGOT) 37 U/L (15-37) Alanine Aminotransferase (ALT/SGPT) 17 U/L (12-78) Alkaline Phosphatase 76 U/L (46-116) Total Protein 5.7 G/DL (6.4-8.2) L Albumin 1.6 G/DL (3.4-5.0) L Globulin 4.1 g/dL Albumin/Globulin Ratio 0.4 (1.0-2.7) L Assessment/Plan Assessment/Plan Sepsis with shock Respiratory failure Chronic vegetative state Anemia Hypokalemia - total body depl Hypomagnesemia - severe Lactic acidosis PAFib with RVR Dehydration/hypernatremia - improved Abx Resp support Adjust IVF Hold amlodipine until BP parameters warrent resumption. Will continue carvedilol now. PRBC transfusion as needed. Replace IV Mg++ and K+ again Flaco Marques MD Dec 17, 2019 01:09
[2019-12-17] MEDS ORDERED: 1/2NS w/KCl 20mEq 1000ml 1,000 ML IV SCH (02:00)
[2019-12-17 04:00] VITALS: BP 140/82
[2019-12-17] MEDS: Meropenem 1gm in NS 55ml IVPB SCH ×2 (05:40→13:37)
[2019-12-17 06:05] LABS: HEMATOCRIT 23.8 % (42.0-52.0); HEMOGLOBIN 7.9 G/DL (14.2-18.0); MEAN CORPUSCULAR VOLUME 82 FL (80-99); PLATELET COUNT 226 K/UL (150-450); RED BLOOD COUNT 2.91 M/UL (4.70-6.10); RED CELL DISTRIBUTION WIDTH 17.7 % (11.6-14.8)
[2019-12-17 06:35] LABS: ALANINE AMINOTRANSFERASE 13 U/L (12-78); ALBUMIN 1.4 G/DL (3.4-5.0); ALBUMIN/GLOBULIN RATIO 0.4 (1.0-2.7); ALKALINE PHOSPHATASE 66 U/L (46-116); ANION GAP 6 mmol/L (5-15); ASPARTATE AMINO TRANSFERASE 37 U/L (15-37); BILIRUBIN,TOTAL 0.4 MG/DL (0.2-1.0); BLOOD UREA NITROGEN 6 mg/dL (7-18); CALCIUM 7.4 MG/DL (8.5-10.1); CARBON DIOXIDE 25 MMOL/L (21-32); CHLORIDE 105 MMOL/L (98-107); CREATININE 0.4 MG/DL (0.55-1.30); POTASSIUM 3.3 MMOL/L (3.5-5.1); SODIUM 136 MMOL/L (136-145)
[2019-12-17 08:00] VITALS: BP 146/81
[2019-12-17 08:56] VITALS: BP 146/81
[2019-12-17] MEDS: Carvedilol 12.5mg tab GT SCH (08:56)
[2019-12-17] MEDS: Ascorbic Acid 500mg tab GT SCH (08:57)
[2019-12-17] MEDS: levETIRAcetam 500mg/5ml Liquid GT SCH (08:57)
[2019-12-17] MEDS: Zinc Sulfate 220mg GT SCH (09:00)
[2019-12-17] MEDS: Heparin 5000 units/ml inj SUBQ SCH (09:00)
[2019-12-17] MEDS ORDERED: Acetaminophen GT (11:28)
[2019-12-17] MEDS ORDERED: FAMOTIDINE20 MG GT (11:28)
[2019-12-17] MEDS ORDERED: ZINC SULFATE220 M2 GT (11:28)
[2019-12-17] MEDS ORDERED: KEPPRA LIQ100 MG/1 M GT (11:28)
[2019-12-17] MEDS ORDERED: COREG12.5 MG GT (11:28)
[2019-12-17] MEDS ORDERED: DULCOLAX10 MG RECTAL (11:28)
[2019-12-17] MEDS ORDERED: ASCORBIC ACID500 M4 GT (11:28)
[2019-12-17] MEDS: Lomotil 2.5mg tab GT PRN ×2 (12:00→16:16)
[2019-12-17] MEDS ORDERED: 1/2 NS 1000ml IV ONE (14:03)
[2019-12-17] MEDS ORDERED: NS 275ml ONE (14:03)
--- NOTE | 2019-12-17 15:01 | Infectious Diseases Prog Note ---
Assessment/Plan Assessment/Plan A; 1. Serratia sepsis,treated 2. E. coli urinary tract infection.treated 3. Seizures. 4. Respiratory failure, status post tracheostomy. 5. leukocytosis. 6. Septic shock. 7. Anemia 8. 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 Discontinue meropenem. 2. HIDA scan: negative Subjective ROS Limited/Unobtainable: Yes Gastrointestinal/Abdominal: Reports: diarrhea Allergies: Coded Allergies: No Known Allergies (Unverified , 12/07/19) Objective Last 24 Hour Vital Signs Date Time Temp Pulse Resp B/P (MAP) Pulse Ox O2 Delivery O2 Flow Rate FiO2 12/17/19 12:00 Mechanical Ventilator 12/17/19 12:00 40 12/17/19 12:00 84 12/17/19 10:55 89 21 28 12/17/19 08:56 97 146/81 12/17/19 08:00 97 12/17/19 08:00 99.0 88 19 146/81 (102) 100 12/17/19 07:45 Mechanical Ventilator 12/17/19 07:39 40 12/17/19 06:51 85 20 28 12/17/19 04:00 Mechanical Ventilator 12/17/19 04:00 98.2 87 22 140/82 (101) 97 12/17/19 04:00 40 12/17/19 04:00 77 12/17/19 03:05 91 21 28 12/17/19 00:00 40 12/17/19 00:00 97.9 85 21 122/72 (89) 97 12/17/19 00:00 Mechanical Ventilator 12/17/19 00:00 78 12/16/19 22:49 83 21 28 12/16/19 21:56 82 110/62 12/16/19 20:16 82 12/16/19 20:07 Mechanical Ventilator 12/16/19 20:00 98.2 82 20 110/65 (80) 97 12/16/19 20:00 40 12/16/19 18:47 89 22 28 12/16/19 17:29 97.7 12/16/19 16:00 100.8 93 20 128/68 (88) 100 12/16/19 16:00 81 12/16/19 15:38 Mechanical Ventilator 12/16/19 15:00 94 20 28 Height (Feet): 5 Height (Inches): 10.00 Weight (Pounds): 200 HEENT: status post trach Respiratory/Chest: lungs clear Cardiovascular: normal rate Abdomen: soft, non tender, other - GT & rectal tube Extremities: other - severe edema of arms Neurologic/Psychiatric: aphasia Laboratory Tests Test 12/16/19 15:50 12/17/19 05:00 White Blood Count 12.7 K/UL (4.8-10.8) H 13.0 K/UL (4.8-10.8) H Red Blood Count 3.08 M/UL (4.70-6.10) L 2.91 M/UL (4.70-6.10) L Hemoglobin 8.2 G/DL (14.2-18.0) L 7.9 G/DL (14.2-18.0) L Hematocrit 26.1 % (42.0-52.0) L 23.8 % (42.0-52.0) L Mean Corpuscular Volume 85 FL (80-99) 82 FL (80-99) Mean Corpuscular Hemoglobin 26.6 PG (27.0-31.0) L 27.2 PG (27.0-31.0) Mean Corpuscular Hemoglobin Concent 31.5 G/DL (32.0-36.0) L 33.3 G/DL (32.0-36.0) Red Cell Distribution Width 18.5 % (11.6-14.8) H 17.7 % (11.6-14.8) H Platelet Count 255 K/UL (150-450) 226 K/UL (150-450) Mean Platelet Volume 7.6 FL (6.5-10.1) 6.9 FL (6.5-10.1) Neutrophils (%) (Auto) 65.7 % (45.0-75.0) % (45.0-75.0) Lymphocytes (%) (Auto) 27.5 % (20.0-45.0) % (20.0-45.0) Monocytes (%) (Auto) 5.6 % (1.0-10.0) % (1.0-10.0) Eosinophils (%) (Auto) 0.2 % (0.0-3.0) % (0.0-3.0) Basophils (%) (Auto) 1.0 % (0.0-2.0) % (0.0-2.0) Sodium Level 141 MMOL/L (136-145) 136 MMOL/L (136-145) Potassium Level 3.6 MMOL/L (3.5-5.1) 3.3 MMOL/L (3.5-5.1) L Chloride Level 108 MMOL/L (98-107) H 105 MMOL/L (98-107) Carbon Dioxide Level 26 MMOL/L (21-32) 25 MMOL/L (21-32) Anion Gap 8 mmol/L (5-15) 6 mmol/L (5-15) Blood Urea Nitrogen 5 mg/dL (7-18) L 6 mg/dL (7-18) L Creatinine 0.4 MG/DL (0.55-1.30) L 0.4 MG/DL (0.55-1.30) L Estimat Glomerular Filtration Rate > 60 mL/min (>60) > 60 mL/min (>60) Glucose Level 107 MG/DL (74-106) H 80 MG/DL (74-106) Calcium Level 8.0 MG/DL (8.5-10.1) L 7.4 MG/DL (8.5-10.1) L Total Bilirubin 0.5 MG/DL (0.2-1.0) 0.4 MG/DL (0.2-1.0) Aspartate Amino Transf (AST/SGOT) 37 U/L (15-37) 37 U/L (15-37) Alanine Aminotransferase (ALT/SGPT) 17 U/L (12-78) 13 U/L (12-78) Alkaline Phosphatase 76 U/L (46-116) 66 U/L (46-116) Total Protein 5.7 G/DL (6.4-8.2) L 5.2 G/DL (6.4-8.2) L Albumin 1.6 G/DL (3.4-5.0) L 1.4 G/DL (3.4-5.0) L Globulin 4.1 g/dL 3.8 g/dL Albumin/Globulin Ratio 0.4 (1.0-2.7) L 0.4 (1.0-2.7) L Differential Total Cells Counted 100 Neutrophils % (Manual) 77 % (45-75) H Lymphocytes % (Manual) 16 % (20-45) L Monocytes % (Manual) 7 % (1-10) Eosinophils % (Manual) 0 % (0-3) Basophils % (Manual) 0 % (0-2) Band Neutrophils 0 % (0-8) Platelet Estimate Adequate Platelet Morphology Normal Hypochromasia 3+ Anisocytosis 1+ Spherocytes 1+ Current Medications Medications (Trade) Dose Ordered Sig/Howard Route PRN Reason Start Time Stop Time Status Last Admin Dose Admin Acetaminophen (Tylenol) 650 mg Q6H PRN GT Mild Pain (Pain Scale 1-3) 12/07/19 18:45 01/06/20 18:44 12/16/19 15:47 Acetaminophen (Tylenol) 650 mg Q6H PRN GT Temp >100.5 12/07/19 19:15 01/06/20 19:14 12/08/19 17:13 Ascorbic Acid (Vitamin C) 500 mg TWICE A DAY GT 12/08/19 09:00 01/07/20 08:59 12/17/19 08:57 Bisacodyl (Dulcolax) 10 mg DAILYPRN PRN RECTAL Constipation 12/07/19 18:45 03/06/20 18:44 Carvedilol (Coreg) 12.5 mg EVERY 12 HOURS GT 12/15/19 09:00 01/14/20 08:59 12/17/19 08:56 Chlorhexidine Gluconate (Ivanna-Hex 2%) 1 applic DAILY@2000 TOPIC 12/08/19 20:00 03/07/20 19:59 12/16/19 20:01 Diphenoxylate HCl/ Atropine (Lomotil) 2.5 mg Q4H PRN GT Diarrhea 12/11/19 07:15 01/10/20 07:14 12/17/19 12:00 Famotidine (Pepcid) 20 mg TWICE A DAY GT 12/07/19 18:45 03/06/20 18:44 12/17/19 08:57 Heparin Sodium (Porcine) (Heparin 5000 units/ml) 5,000 units EVERY 12 HOURS SUBQ 12/07/19 21:00 01/21/20 20:59 12/17/19 09:00 Levetiracetam (Keppra) 1,000 mg EVERY 12 HOURS GT 12/07/19 21:00 01/06/20 20:59 12/17/19 08:57 Meropenem 1 gm/ Sodium Chloride 55 ml @ 110 mls/hr Q8HR IVPB 12/13/19 14:00 12/18/19 13:59 12/17/19 13:37 Sodium 1,000 ml @ 75 mls/hr [id number] IV 12/17/19 02:00 01/16/20 01:59 12/17/19 03:46 Zinc Sulfate (Zinc Sulfate) 220 mg DAILY GT 12/07/19 21:00 03/06/20 20:59 12/17/19 09:00 Liban Nice MD Dec 17, 2019 15:01
--- NOTE | 2019-12-17 16:05 | Surgery Progress Note ---
Surgery Progress Note Subjective Additional Comments leukocytosis on support no n/v non responsive Objective Last 24 Hour Vital Signs Date Time Temp Pulse Resp B/P (MAP) Pulse Ox O2 Delivery O2 Flow Rate FiO2 12/17/19 15:23 86 20 28 12/17/19 12:00 Mechanical Ventilator 12/17/19 12:00 40 12/17/19 12:00 84 12/17/19 10:55 89 21 28 12/17/19 08:56 97 146/81 12/17/19 08:00 97 12/17/19 08:00 99.0 88 19 146/81 (102) 100 12/17/19 07:45 Mechanical Ventilator 12/17/19 07:39 40 12/17/19 06:51 85 20 28 12/17/19 04:00 Mechanical Ventilator 12/17/19 04:00 98.2 87 22 140/82 (101) 97 12/17/19 04:00 40 12/17/19 04:00 77 12/17/19 03:05 91 21 28 12/17/19 00:00 40 12/17/19 00:00 97.9 85 21 122/72 (89) 97 12/17/19 00:00 Mechanical Ventilator 12/17/19 00:00 78 12/16/19 22:49 83 21 28 12/16/19 21:56 82 110/62 12/16/19 20:16 82 12/16/19 20:07 Mechanical Ventilator 12/16/19 20:00 98.2 82 20 110/65 (80) 97 12/16/19 20:00 40 12/16/19 18:47 89 22 28 12/16/19 17:29 97.7 I&O Intake and Output 12/16/19 12/17/19 19:00 07:00 Intake Total 95 ml 1025 ml Output Total 960 ml Balance 95 ml 65 ml IV Total 75 ml 805 ml Tube Feeding 20 ml 220 ml Output Urine Total 900 ml Stool Total 60 ml # Bowel Movements 300 Dressing: saturated Wound: intact Cardiovascular: RSR Respiratory: decreased breath sounds Abdomen: non-tender, present bowel sounds Extremities: no tenderness, no cyanosis Laboratory Tests Test 12/17/19 05:00 White Blood Count 13.0 K/UL (4.8-10.8) H Red Blood Count 2.91 M/UL (4.70-6.10) L Hemoglobin 7.9 G/DL (14.2-18.0) L Hematocrit 23.8 % (42.0-52.0) L Mean Corpuscular Volume 82 FL (80-99) Mean Corpuscular Hemoglobin 27.2 PG (27.0-31.0) Mean Corpuscular Hemoglobin Concent 33.3 G/DL (32.0-36.0) Red Cell Distribution Width 17.7 % (11.6-14.8) H Platelet Count 226 K/UL (150-450) Mean Platelet Volume 6.9 FL (6.5-10.1) Neutrophils (%) (Auto) % (45.0-75.0) Lymphocytes (%) (Auto) % (20.0-45.0) Monocytes (%) (Auto) % (1.0-10.0) Eosinophils (%) (Auto) % (0.0-3.0) Basophils (%) (Auto) % (0.0-2.0) Differential Total Cells Counted 100 Neutrophils % (Manual) 77 % (45-75) H Lymphocytes % (Manual) 16 % (20-45) L Monocytes % (Manual) 7 % (1-10) Eosinophils % (Manual) 0 % (0-3) Basophils % (Manual) 0 % (0-2) Band Neutrophils 0 % (0-8) Platelet Estimate Adequate Platelet Morphology Normal Hypochromasia 3+ Anisocytosis 1+ Spherocytes 1+ Sodium Level 136 MMOL/L (136-145) Potassium Level 3.3 MMOL/L (3.5-5.1) L Chloride Level 105 MMOL/L (98-107) Carbon Dioxide Level 25 MMOL/L (21-32) Anion Gap 6 mmol/L (5-15) Blood Urea Nitrogen 6 mg/dL (7-18) L Creatinine 0.4 MG/DL (0.55-1.30) L Estimat Glomerular Filtration Rate > 60 mL/min (>60) Glucose Level 80 MG/DL (74-106) Calcium Level 7.4 MG/DL (8.5-10.1) L Total Bilirubin 0.4 MG/DL (0.2-1.0) Aspartate Amino Transf (AST/SGOT) 37 U/L (15-37) Alanine Aminotransferase (ALT/SGPT) 13 U/L (12-78) Alkaline Phosphatase 66 U/L (46-116) Total Protein 5.2 G/DL (6.4-8.2) L Albumin 1.4 G/DL (3.4-5.0) L Globulin 3.8 g/dL Albumin/Globulin Ratio 0.4 (1.0-2.7) L Plan Problems: (1) Laceration of scalp Assessment & Plan: patient noted to have right occipital scalp laceration 5cm 1mm dehiscence. serous oozing. no pus at this time. --hold on leonardo or closure given secondary intention and age of wound leonardo noted to frontal right scalp leonardo removed dressings applied to wound will monitor no acute surgical intervention planned (2) Pneumonia (3) Rapid atrial fibrillation (4) Sepsis Assessment & Plan: leukocytosis anemia scalp lac with pus drainage prior now clear abd wound with leonardo in place pna micro noted on abx labs improving leonardo removed from scalp and abdomen wounds evaluated and care plan initiated lft's nml wbc improved hida noted and negative patient head mainly on left lateral causing trach pressure. small skin breakdown noted around trach. dressings applied will monitor thank you Kashif Villalta Dec 17, 2019 16:05
--- NOTE | 2019-12-17 18:16 | Cardiology Progress Note ---
Subjective DATE OF SERVICE: Dec 17, 2019 Remains off pressors with stable BP Lytes and hb relatively stable HIDA scan negative; antibiotics completed. Objective Last 24 Hour Vital Signs Date Time Temp Pulse Resp B/P (MAP) Pulse Ox O2 Delivery O2 Flow Rate FiO2 12/17/19 15:23 86 20 28 12/17/19 12:00 Mechanical Ventilator 12/17/19 12:00 40 12/17/19 12:00 84 12/17/19 10:55 89 21 28 12/17/19 08:56 97 146/81 12/17/19 08:00 97 12/17/19 08:00 99.0 88 19 146/81 (102) 100 12/17/19 07:45 Mechanical Ventilator 12/17/19 07:39 40 12/17/19 06:51 85 20 28 12/17/19 04:00 Mechanical Ventilator 12/17/19 04:00 98.2 87 22 140/82 (101) 97 12/17/19 04:00 40 12/17/19 04:00 77 12/17/19 03:05 91 21 28 12/17/19 00:00 40 12/17/19 00:00 97.9 85 21 122/72 (89) 97 12/17/19 00:00 Mechanical Ventilator 12/17/19 00:00 78 12/16/19 22:49 83 21 28 12/16/19 21:56 82 110/62 12/16/19 20:16 82 12/16/19 20:07 Mechanical Ventilator 12/16/19 20:00 98.2 82 20 110/65 (80) 97 12/16/19 20:00 40 12/16/19 18:47 89 22 28 ROS: unchanged from my note of 12/07/19. HEENT: Thin Trach secretions RHYTHM: Afib LUNGS: bilateral rhonchi CARDIAC: irregularly irregular ABDOMEN: non tender, soft, distended, G-Tube intact EXTREMITIES: trace edema, other - Neuro: comatose state Laboratory Tests Test 12/17/19 05:00 White Blood Count 13.0 K/UL (4.8-10.8) H Red Blood Count 2.91 M/UL (4.70-6.10) L Hemoglobin 7.9 G/DL (14.2-18.0) L Hematocrit 23.8 % (42.0-52.0) L Mean Corpuscular Volume 82 FL (80-99) Mean Corpuscular Hemoglobin 27.2 PG (27.0-31.0) Mean Corpuscular Hemoglobin Concent 33.3 G/DL (32.0-36.0) Red Cell Distribution Width 17.7 % (11.6-14.8) H Platelet Count 226 K/UL (150-450) Mean Platelet Volume 6.9 FL (6.5-10.1) Neutrophils (%) (Auto) % (45.0-75.0) Lymphocytes (%) (Auto) % (20.0-45.0) Monocytes (%) (Auto) % (1.0-10.0) Eosinophils (%) (Auto) % (0.0-3.0) Basophils (%) (Auto) % (0.0-2.0) Differential Total Cells Counted 100 Neutrophils % (Manual) 77 % (45-75) H Lymphocytes % (Manual) 16 % (20-45) L Monocytes % (Manual) 7 % (1-10) Eosinophils % (Manual) 0 % (0-3) Basophils % (Manual) 0 % (0-2) Band Neutrophils 0 % (0-8) Platelet Estimate Adequate Platelet Morphology Normal Hypochromasia 3+ Anisocytosis 1+ Spherocytes 1+ Sodium Level 136 MMOL/L (136-145) Potassium Level 3.3 MMOL/L (3.5-5.1) L Chloride Level 105 MMOL/L (98-107) Carbon Dioxide Level 25 MMOL/L (21-32) Anion Gap 6 mmol/L (5-15) Blood Urea Nitrogen 6 mg/dL (7-18) L Creatinine 0.4 MG/DL (0.55-1.30) L Estimat Glomerular Filtration Rate > 60 mL/min (>60) Glucose Level 80 MG/DL (74-106) Calcium Level 7.4 MG/DL (8.5-10.1) L Total Bilirubin 0.4 MG/DL (0.2-1.0) Aspartate Amino Transf (AST/SGOT) 37 U/L (15-37) Alanine Aminotransferase (ALT/SGPT) 13 U/L (12-78) Alkaline Phosphatase 66 U/L (46-116) Total Protein 5.2 G/DL (6.4-8.2) L Albumin 1.4 G/DL (3.4-5.0) L Globulin 3.8 g/dL Albumin/Globulin Ratio 0.4 (1.0-2.7) L Assessment/Plan Assessment/Plan Sepsis with shock recovered Respiratory failure Chronic vegetative state Anemia Hypokalemia - total body depl Hypomagnesemia - severe Lactic acidosis PAFib with RVR Dehydration/hypernatremia - improved Resp support Off IVF Continue carvedilol; can resume amlodipine at SNF for BP elevation. Stable for subacute from cardiovascular standpoint. DC meds reviewed. Flaco Marques MD Dec 17, 2019 18:16
--- NOTE | 2019-12-18 14:17 | Discharge Summary ---
Discharge Summary Discharge Summary _ DATE OF ADMISSION: 12/07/2019 DATE OF DISCHARGE: 12/17/2019 DISCHARGED BY: Dr. Buck REASON FOR ADMISSION: 59 years old male with past medical history of intracranial bleeding few weeks ago , status post craniotomy and GUILLOTINE TRIMMER shunt placement, seizure disorder ,chronic respiratory failure s,tatus post tracheostomy, dysphagia, feeding by G-tube, was [facility] . where he developed fever and shortness of breath . Patient subsequently was transferred to emergency room for further evaluation and management. Upon evaluation patient was tachypneic , hypotensive , and febrile. Chest x-ray revealed bilateral patchy infiltrates and bilateral small effusion. Urinalysis revealed evidence of UTI. Septic work-up initiated , patient pancultured and started on empiric antibiotic. Patient required pressors for hemodynamic support . Patient admitted to ICU for further management . CONSULTANTS: welding machine operator ultrasonic Dr. Marques ID specialist Dr. Corral surgery Dr. Villalta [facility]: Patient initially admitted to ICU . Hemodynamic status was closely monitored with goal to keep her mean arterial blood pressure above 65. Patient was able to be weaned off pressors. Patient was on IV hydration and empiric antibiotic. Blood culture revealed Serratia ,. Urine culture revealed E. coli ESBL. Antibiotic regimen further provided as per ID specialist recommendation. Patient completed treatment with antibiotic while in the hospital. Leukocytosis trending down, fever resolved. Patient noted to have diarrhea. Stool for C. difficile was negative. Patient noted to have slightly elevated AST. Abdominal ultrasound revealed gallbladder sludge and stones. Hepatomegaly. Gallbladder wall thickening and edema raised possibility of acute cholecystitis. HIDA scan subsequently was done and revealed no evidence of cystic duct or common bile duct obstruction. Ventilator support and tracheostomy care provided. Pulmonary toilet provided as needed. No signs of respiratory distress on current settings. Hemoglobin and hematocrit were closely monitored with goal to keep hemoglobin above. Patient undergone transfusion of total of 2 units of packed red blood cells for hemoglobin 6.8. Prior to discharge hemoglobin 7.9 , hematocrit 23.8. Stool for occult blood was negative. Anemia work-up revealed evidence of anemia of chronic disease. Renal parameters and electrolytes were closely monitored,electrolytes corrected as needed s. Seizure precautions maintained. Keppra continued. DVT and GI prophylaxis provided. Surgeon seen patient for a right occipital scalp laceration from dehiscence. [place] were removed, dressings were applied . No acute surgical intervention was necessarily. Wound care further provided as per surgeon recommendation . Continue wound care at the facility. Clinically stabilized and was ready for [facility] to [facility] FINAL DIAGNOSES: Sepsis with shock Serratia bacteremia E. coli UTI Pneumonia Rapid atrial fibrillation Chronic respiratory failure , ventilator dependent with tracheostomy status Leukocytosis-improving Anemia ( requiring blood transfusion) Diarrhea , stool C. difficile negative Seizure disorder Chronic vegetative state Lactic acidosis Paroxysmal atrial fibrillation with rapid ventricular response Dehydration Electrolyte imbalance: hypernatremia, hypokalemia, hypomagnerasim DISCHARGE MEDICATIONS: See Medication Reconciliation list. DISCHARGE INSTRUCTIONS: [facility] was [facility]. Follow up with medical doctor at the facility. I have been assigned to dictate discharge summary for this account. I was not involved in the patient's management. Shawna Rankin NP Dec 18, 2019 14:17
== END 2019-12-17 18:09 | DRG 720 ==
LOC: EDBD 16:10 → EDBEDREQ 16:25 → EMR 16:30 → ICU 18:12 → EDBEDREQ 19:12 → 2W 12-12 05:35
DX: A41.53 Sepsis due to Serratia (principal); R40.2213 Coma scale, best verbal response, none, at hospital admission; J18.9 Pneumonia, unspecified organism; Z99.11 Dependence on respirator [ventilator] status; J90 Pleural effusion, not elsewhere classified; R65.21 Severe sepsis with septic shock; G93.49 Other encephalopathy; R40.3 Persistent vegetative state; J96.10 Chronic respiratory failure, unspecified whether with hypoxia or hypercapnia; E46 Unspecified protein-calorie malnutrition; Z93.0 Tracheostomy status; E87.2 Acidosis; I11.0 Hypertensive heart disease with heart failure; I50.9 Heart failure, unspecified; I48.0 Paroxysmal atrial fibrillation; E83.42 Hypomagnesemia; Z93.1 Gastrostomy status; N39.0 Urinary tract infection, site not specified; E87.6 Hypokalemia; G40.909 Epilepsy, unspecified, not intractable, without status epilepticus; D64.9 Anemia, unspecified; R40.2353 Coma scale, best motor response, localizes pain, at hospital admission; R40.2143 Coma scale, eyes open, spontaneous, at hospital admission; R47.02 Dysphasia; B96.20 Unspecified Escherichia coli [E. coli] as the cause of diseases classified elsewhere; Y95 Nosocomial condition; I69.298 Other sequelae of other nontraumatic intracranial hemorrhage; R19.7 Diarrhea, unspecified; Z16.21 Resistance to vancomycin; T81.31XA Disruption of external operation (surgical) wound, not elsewhere classified, initial encounter; Y83.8 Other surgical procedures as the cause of abnormal reaction of the patient, or of later complication, without mention of misadventure at the time of the procedure; Y92.129 Unspecified place in nursing home as the place of occurrence of the external cause; E11.9 Type 2 diabetes mellitus without complications; Z68.25 Body mass index [BMI] 25.0-25.9, adult; Z98.2 Presence of cerebrospinal fluid drainage device; Z98.890 Other specified postprocedural states
CPT/HCPCS: 36415; 36569; 71045; 76700; 76937; 78266; 80048; 80053; 81003; 82270; 82550; 82553; 82728; 82803; 83540; 83550; 83605; 83615; 83690; 83735; 83880; 84100; 84443; 84484; 85007; 85025; 85379; 85610; 85730; 86140; 86850; 86900; 86901; 86920; 87040; 87081; 87086; 87181; 87324; 93005; 94002; 94003; 96365; 96367; 96368; 99291; J7030; J8499; U0002